=== PATIENT | male | born 1945 | race Caucasian/White ===

== ENCOUNTER → 2016-11-17 | Outpatient (REF) | payer MEDICARE, OTHER ==
[~2016-11-17] MED LIST: ANTI2CAP PO; AUGM875T27 PO; BENA20TA PO; BENA20TA2 PO; CHAN1PAK9 PO; CIPR500T89 PO; CLIN1CAP5 PO; FLAG500T PO; GLIP5TAB8 PO; GLYB5TA PO; HEPA10IN19 IV; IMOD2TAB14 PO; INSULANT SC; JANU100T PO; METF1000 PO; METF500T PO; ROCE1INJ4 IV; SALI0.9I2 IV; SIMV20TA2 PO; TYLE325T5 PO; VARE1TA PO; ZOCO20TA PO
[2016-11-17 13:39] LABS: MEAN CORPUSCULAR HEMOGLOBIN 30.6 pg (27.0-33.0); MEAN CORPUSCULAR HGB CONC 32.3 g/dl (32.0-36.5); MEAN CORPUSCULAR VOLUME 94.5 fl (80.0-96.0); RED CELL DISTRIBUTION WIDTH 12.5 % (11.5-14.5); WHITE BLOOD COUNT 7.5 K/mm3 (4.0-10.0)
[2016-11-17 13:43] LABS: ALBUMIN 3.4 GM/DL (3.2-5.2); ALBUMIN/GLOBULIN RATIO 1.03 (1.00-1.93); ALKALINE PHOSPHATASE 122 U/L (45-117); ALT/SGPT 32 U/L (12-78); ANION GAP 8 MEQ/L (8-16); AST/SGOT 14 U/L (15-37); BILIRUBIN,TOTAL 0.7 MG/DL (0.2-1.0); BLOOD UREA NITROGEN 13 MG/DL (7-18); CALCIUM LEVEL 8.9 MG/DL (8.8-10.2); CARBON DIOXIDE LEVEL 29 MEQ/L (21-32); CHLORIDE LEVEL 103 MEQ/L (98-107); CHOLESTEROL LEVEL 200 MG/DL (<200); CREATININE FOR GFR 0.89 MG/DL (0.70-1.30); GLOMERULAR FILTRATION RATE > 60.0 (>49); GLUCOSE, FASTING 311 MG/DL (80-110); POTASSIUM SERUM 4.2 MEQ/L (3.5-5.1); SODIUM LEVEL 140 MEQ/L (136-145); TOTAL PROTEIN 6.7 GM/DL (6.4-8.2); TRIGLYCERIDES LEVEL 160 MG/DL (<150)
== END ==
LOC: M SFHCPLAZ 10:25
PROVIDERS: ATTEND Internal Medicine
DX: Z85.038 Personal history of other malignant neoplasm of large intestine (principal); E11.9 Type 2 diabetes mellitus without complications; E78.00 Pure hypercholesterolemia, unspecified

== ENCOUNTER → 2016-11-29 | Outpatient (REF) | payer MEDICARE, OTHER ==
[~2016-11-29] MED LIST changes: -IMOD2TAB14 PO; +IMOD2TAB16 PO
== END ==
LOC: M LAB REF 16:19
PROVIDERS: ATTEND Internal Medicine Medical Oncology
DX: C18.9 Malignant neoplasm of colon, unspecified (principal)

== ENCOUNTER → 2017-01-29 | Outpatient (REF) | payer MEDICARE, OTHER ==
[2017-01-29 13:16] LABS: INR 1.03
== END ==
LOC: M LAB REF 12:33
PROVIDERS: ATTEND Internal Medicine Medical Oncology
DX: C20 Malignant neoplasm of rectum (principal)

== ENCOUNTER → 2017-03-27 | Outpatient (REF) | payer MEDICARE, OTHER ==
[2017-03-27 12:35] LABS: ALBUMIN 3.3 GM/DL (3.2-5.2); ALBUMIN/GLOBULIN RATIO 1.06 (1.00-1.93); ALKALINE PHOSPHATASE 130 U/L (45-117); ALT/SGPT 62 U/L (12-78); ANION GAP 5 MEQ/L (8-16); AST/SGOT 30 U/L (15-37); BILIRUBIN,TOTAL 0.6 MG/DL (0.2-1.0); BLOOD UREA NITROGEN 16 MG/DL (7-18); CALCIUM LEVEL 9.1 MG/DL (8.8-10.2); CARBON DIOXIDE LEVEL 29 MEQ/L (21-32); CHLORIDE LEVEL 106 MEQ/L (98-107); CREATININE FOR GFR 0.85 MG/DL (0.70-1.30); GLOMERULAR FILTRATION RATE > 60.0 (>49); GLUCOSE, FASTING 207 MG/DL (80-110); POTASSIUM SERUM 3.9 MEQ/L (3.5-5.1); SODIUM LEVEL 140 MEQ/L (136-145); TOTAL PROTEIN 6.4 GM/DL (6.4-8.2)
== END ==
LOC: M SFHCPLAZ 09:19
PROVIDERS: ATTEND Internal Medicine
DX: E11.9 Type 2 diabetes mellitus without complications (principal)

== ENCOUNTER → 2017-05-01 | Outpatient (REF) | payer MEDICARE, OTHER | LOC: M LAB REF 16:54 | PROVIDERS: ATTEND Internal Medicine Medical Oncology | DX: C18.9 Malignant neoplasm of colon, unspecified (principal) ==

== ENCOUNTER → 2017-06-19 | Outpatient (REF) | payer MEDICARE, OTHER ==
[~2017-06-19] MED LIST changes: -AUGM875T27 PO; +AUGM875T28 PO; -BENA20TA2 PO; +BENA20TA8 PO; +CIPR-249 PO; -CIPR500T89 PO; +CLIN150C14 PO; -CLIN1CAP5 PO; -METF1000 PO; +METF10004 PO; -METF500T PO; +METF500T13 PO
[2017-06-19 11:58] LABS: MEAN CORPUSCULAR HEMOGLOBIN 31.4 pg (27.0-33.0); MEAN CORPUSCULAR HGB CONC 33.6 g/dl (32.0-36.5); MEAN CORPUSCULAR VOLUME 93.4 fl (80.0-96.0); RED CELL DISTRIBUTION WIDTH 12.8 % (11.5-14.5); WHITE BLOOD COUNT 4.6 K/mm3 (4.0-10.0)
[2017-06-19 12:14] LABS: ALBUMIN 3.5 GM/DL (3.2-5.2); ALBUMIN/GLOBULIN RATIO 1.17 (1.00-1.93); ALKALINE PHOSPHATASE 162 U/L (45-117); ALT/SGPT 50 U/L (12-78); ANION GAP 7 MEQ/L (8-16); AST/SGOT 30 U/L (15-37); BILIRUBIN,TOTAL 0.7 MG/DL (0.2-1.0); BLOOD UREA NITROGEN 14 MG/DL (7-18); CARBON DIOXIDE LEVEL 28 MEQ/L (21-32); CHLORIDE LEVEL 108 MEQ/L (98-107); CHOLESTEROL LEVEL 156 MG/DL (<200); CREATININE FOR GFR 0.98 MG/DL (0.70-1.30); GLOMERULAR FILTRATION RATE > 60.0 (>49); GLUCOSE, FASTING 182 MG/DL (80-110); POTASSIUM SERUM 4.1 MEQ/L (3.5-5.1); SODIUM LEVEL 143 MEQ/L (136-145); TOTAL PROTEIN 6.5 GM/DL (6.4-8.2); TRIGLYCERIDES LEVEL 175 MG/DL (<150)
== END ==
LOC: M SFHCPLAZ 08:55
PROVIDERS: ATTEND Internal Medicine
DX: E78.00 Pure hypercholesterolemia, unspecified (principal); Z85.038 Personal history of other malignant neoplasm of large intestine; E11.9 Type 2 diabetes mellitus without complications

== ENCOUNTER → 2017-07-24 | Outpatient (REF) | payer MEDICARE, OTHER ==
[2017-07-24 16:23] LABS: ANION GAP 7 MEQ/L (8-16); BLOOD UREA NITROGEN 19 MG/DL (7-18); CALCIUM LEVEL 8.5 MG/DL (8.8-10.2); CARBON DIOXIDE LEVEL 28 MEQ/L (21-32); CHLORIDE LEVEL 108 MEQ/L (98-107); CREATININE FOR GFR 1.08 MG/DL (0.70-1.30); GLOMERULAR FILTRATION RATE > 60.0 (>49); GLUCOSE, FASTING 333 MG/DL (80-110); POTASSIUM SERUM 4.3 MEQ/L (3.5-5.1); SODIUM LEVEL 143 MEQ/L (136-145)
== END ==
LOC: M SFHCPLAZ 13:22
PROVIDERS: ATTEND Internal Medicine
DX: G45.9 Transient cerebral ischemic attack, unspecified (principal)

== ENCOUNTER → 2017-07-27 | Outpatient (CLI) | payer MEDICARE, OTHER ==
--- NOTE | 2017-07-27 15:19 | REP ---
MRI BRAIN WITHOUT AND WITH IV GADOLINIUM: HISTORY: Transition cerebral ischemia. Left cheek and tongue numbness intermittently. TECHNIQUE: Axial coronal and sagittal imaging planes are obtained. Sequences include spin-echo, fast spin echo, FLAIR, and diffusion weighted sequences. Gadolinium enhancement dose is 15 mL of intravenous ProHance. MRI FINDINGS: The bony calvarium is intact. Craniocervical junction and upper cervical cord are unremarkable. There is no MR evidence of paranasal sinus disease or intraorbital abnormality. Deep facial soft tissues are unremarkable and symmetric. No intracranial vascular abnormality is seen. There is a small focus of decreased T1-weighted and T2 signal in the periventricular white matter of the right frontal lobe consistent with a tiny old lacunar infarct. There is no evidence of acute ischemia on diffusion weighted scans. There are some scattered periventricular and subcortical white matter foci of T2 hyperintensity consistent with small vessel atherosclerotic changes. There is no evidence of intracranial hemorrhage. No mass, extra-axial fluid collection or midline shift is seen. Postcontrast enhanced images show enhancement of normal vessels. No abnormal gadolinium enhancement is appreciated. 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 Small vessel changes. Otherwise negative MRI study brain without and with intravenous gadolinium. Signed by Christopher Winslow MD 07/27/2017 03:22 P
== END ==
LOC: M RAD 13:03
PROVIDERS: ATTEND Internal Medicine
DX: G45.9 Transient cerebral ischemic attack, unspecified (principal)
CPT/HCPCS: 70553; A9576

== ENCOUNTER → 2017-07-31 | Outpatient (REF) | payer MEDICARE, OTHER | LOC: M LAB REF 17:31 | PROVIDERS: ATTEND Internal Medicine Medical Oncology | DX: C18.9 Malignant neoplasm of colon, unspecified (principal) ==

== ENCOUNTER → 2017-08-02 | Outpatient (CLI) | payer MEDICARE, OTHER ==
--- NOTE | 2017-08-02 11:15 | REP ---
MRA BRAIN WITHOUT CONTRAST: HISTORY: Transient cerebral ischemia. 3D [id number] MR angiography was performed at the level of the [place]. There is no aneurysm or arteriovenous malformation. Mild atherosclerotic disease involves the vertical petrous and cavernous internal carotid arteries. The major intracranial vessels are patent. The vertebral arteries are equal in size. IMPRESSION: 1. There is no aneurysm or arteriovenous malformation. 2. Atherosclerotic disease as described above. Signed by Fredo Landaverde MD 08/02/2017 11:23 A
== END ==
LOC: M RAD 08:53
PROVIDERS: ATTEND Internal Medicine
DX: G45.9 Transient cerebral ischemic attack, unspecified (principal)

== ENCOUNTER → 2017-10-08 | Outpatient (REF) | payer MEDICARE, OTHER | LOC: M LAB REF 13:58 | PROVIDERS: ATTEND Internal Medicine Medical Oncology | DX: C18.4 Malignant neoplasm of transverse colon (principal) ==

== ENCOUNTER → 2017-10-11 | Outpatient (CLI) | payer MEDICARE, OTHER ==
[~2017-10-11] MED LIST changes: +GASTROGRAFIN SOLUTION 30ML (Q9963) As Ordered ONE; +ISOVUE-370 76% 100ML VIAL (Q9967) As Ordered ONE
--- NOTE | 2017-10-11 11:14 | REP ---
CT of the chest with IV contrast: Comparison is 07/21/2014. There are small 3 ml lung nodules as previously, one on image 45 inferiorly in the anterior segment right upper lobe and the other on image 49 in the right lower lobe, compatible with stable granulomas. There are no new lung nodules or mass. There are no infiltrates or effusions. There is no mediastinal or hilar adenopathy. There is no axillary adenopathy. Thoracic aorta is R. Cardiac size is normal. There is no pericardial effusion. There are no lytic, blastic or destructive skeletal changes. Impression: Essentially negative CT study of the chest. There are two tiny stable granulomas in the right lung, unchanged. No evidence of metastatic disease or adenopathy. No infiltrates or effusions. Signed by Theo Goins MD 10/11/2017 11:06 A
--- NOTE | 2017-10-11 11:56 | REP ---
CT abdomen pelvis without and with IV contrast. The after IV contrast, immediate and delayed scanning is performed. Comparison is 07/21/2014. The hepatic parenchyma is homogeneous on all phases of the study. There is no evidence of hepatic metastatic disease. The gallbladder, pancreas and spleen are normal size, unremarkable and unchanged. The adrenals, kidneys and abdominal aorta are unremarkable and unchanged. Occasional calcified atheroma is again noted in the aorta. There is no periaortic adenopathy. There is no mesenteric adenopathy. There is no ascites. There is a circumferential anastomotic surgical suture line in the proximal transverse colon and a similar surgical suture line in the rectosigmoid colon. This is unchanged. There is no evidence of tumor recurrence at either anastomosis. There is no bowel distension or obstruction. Mesentery is unremarkable. Pelvis: There is no adenopathy or ascites. The bladder is unremarkable. There is mild stranding in the pararectal fat, nonspecific. This could be postsurgical, postradiation or combination. There is no ascites. Impression: No evidence of adenopathy, metastatic disease, or ascites. There are postsurgical changes as described, unchanged. Otherwise, negative CT of the abdomen and pelvis. No interval change. Signed by Theo Goins MD 10/11/2017 11:47 A
== END ==
LOC: M RAD 08:09
PROVIDERS: ATTEND Internal Medicine Medical Oncology
DX: C18.9 Malignant neoplasm of colon, unspecified (principal)
CPT/HCPCS: 71260; 74178; Q9963; Q9967

== ENCOUNTER → 2017-11-07 | Outpatient (REF) | payer MEDICARE, OTHER ==
[2017-11-07 12:17] LABS: ALBUMIN 3.4 GM/DL (3.2-5.2); ALBUMIN/GLOBULIN RATIO 1.06 (1.00-1.93); ALKALINE PHOSPHATASE 118 U/L (45-117); ALT/SGPT 39 U/L (12-78); ANION GAP 5 MEQ/L (8-16); AST/SGOT 23 U/L (7-37); BILIRUBIN,TOTAL 0.5 MG/DL (0.2-1.0); BLOOD UREA NITROGEN 18 MG/DL (7-18); CARBON DIOXIDE LEVEL 30 MEQ/L (21-32); CHLORIDE LEVEL 109 MEQ/L (98-107); CHOLESTEROL LEVEL 129 MG/DL (<200); CHOLESTEROL RISK RATIO 3.486 (<5); GLOMERULAR FILTRATION RATE > 60.0 (>49); GLUCOSE, FASTING 95 MG/DL (80-110); HDL CHOLESTEROL 37 MG/DL (>40); NON-HDL-C 92 MG/DL; POTASSIUM SERUM 4.2 MEQ/L (3.5-5.1); SODIUM LEVEL 144 MEQ/L (136-145); TOTAL PROTEIN 6.6 GM/DL (6.4-8.2); TRIGLYCERIDES LEVEL 155 MG/DL (<150)
[2017-11-07 12:35] LABS: CREATININE, URINE 64.2 MG/DL; MAU/CREAT RATIO 10.9 MCG/MG (0.0-30.0)
[2017-11-07 12:52] LABS: ESTIMATED AVERAGE GLUCOSE 235 MG/DL (60-110); HEMOGLOBIN A1c 9.8 %
== END ==
LOC: M SFHCPLAZ 07:48
DX: E11.3553 Type 2 diabetes mellitus with stable proliferative diabetic retinopathy, bilateral (principal); Z85.038 Personal history of other malignant neoplasm of large intestine; E78.00 Pure hypercholesterolemia, unspecified
CPT/HCPCS: 80053

== ENCOUNTER → 2017-12-28 | Outpatient (REF) | payer MEDICARE, OTHER ==
[2017-12-28 16:04] LABS: APPEARANCE, URINE HAZY (CLEAR); BACTERIA, URINE AUTO 1+ (NEGATIVE); BILIRUBIN, URINE AUTO NEGATIVE (NEGATIVE); BLOOD, URINE BLOOD 2+ (NEGATIVE); COLOR, URINE YELLOW (YELLOW); GLUCOSE, URINE (UA) AUTO 3+ mg/dL (NEGATIVE); KETONE, URINE AUTO NEGATIVE (NEGATIVE); LEUKOCYTE ESTERASE, URINE AUTO 3+ (NEGATIVE); NITRITE, URINE AUTO NEGATIVE (NEGATIVE); PROTEIN, URINE AUTO NEGATIVE (NEGATIVE); RBC, URINE AUTO 22 /HPF (0-3); SPECIFIC GRAVITY URINE AUTO 1.017 (1.002-1.035); SQUAMOUS EPITHELIAL CELL UR AU 0 /HPF (0-6); UROBILINOGEN, URINE AUTO 0.2 mg/dL (0.0-2.0); WBC, URINE AUTO 91 /HPF (0-3)
== END ==
LOC: M SFHCPLAZ 14:52
DX: R30.0 Dysuria (principal)
CPT/HCPCS: 81001

== ENCOUNTER → 2017-12-31 | Outpatient (REF) | payer MEDICARE, OTHER | LOC: M LAB REF 16:54 | DX: L89.891 Pressure ulcer of other site, stage 1 (principal); E10.621 Type 1 diabetes mellitus with foot ulcer (principal) | CPT/HCPCS: 87186; 87205 ==

== ENCOUNTER → 2018-01-29 | Outpatient (REF) | payer MEDICARE, OTHER | LOC: M LAB REF 13:51 | DX: C18.9 Malignant neoplasm of colon, unspecified (principal) | CPT/HCPCS: 82378 ==

== ENCOUNTER → 2018-02-18 | Outpatient (CLI) | payer MEDICARE, OTHER ==
[2018-02-18 11:15] LABS: HEMATOCRIT 38.1 % (42.0-52.0); HEMOGLOBIN 12.3 g/dl (13.5-17.5); MEAN CORPUSCULAR HEMOGLOBIN 29.3 pg (27.0-33.0); MEAN CORPUSCULAR HGB CONC 32.3 g/dl (32.0-36.5); MEAN CORPUSCULAR VOLUME 90.7 fl (80.0-96.0); PLATELET COUNT, AUTOMATED 184 10^3/uL (150-450); RED CELL DISTRIBUTION WIDTH 13.4 % (11.5-14.5); WHITE BLOOD COUNT 6.5 10^3/uL (4.0-10.0)
[2018-02-18 12:14] LABS: ANION GAP 3 MEQ/L (8-16); BLOOD UREA NITROGEN 18 MG/DL (7-18); CALCIUM LEVEL 9.1 MG/DL (8.8-10.2); CARBON DIOXIDE LEVEL 31 MEQ/L (21-32); CHLORIDE LEVEL 107 MEQ/L (98-107); CREATININE FOR GFR 1.05 MG/DL (0.70-1.30); GLOMERULAR FILTRATION RATE > 60.0 (>42); GLUCOSE, FASTING 308 MG/DL (70-100); POTASSIUM SERUM 4.8 MEQ/L (3.5-5.1); SODIUM LEVEL 141 MEQ/L (136-145)
== END ==
LOC: M LAB 10:45
DX: Z01.818 Encounter for other preprocedural examination (principal); L89.899 Pressure ulcer of other site, unspecified stage; R94.31 Abnormal electrocardiogram [ECG] [EKG]
CPT/HCPCS: 71046

== ENCOUNTER → 2018-02-26 | Outpatient (REF) | payer MEDICARE, OTHER ==
[2018-02-26 14:32] LABS: ESTIMATED AVERAGE GLUCOSE 249 MG/DL (60-110); HEMOGLOBIN A1c 10.3 %
== END ==
LOC: M SFHCPLAZ 08:46
DX: E11.3553 Type 2 diabetes mellitus with stable proliferative diabetic retinopathy, bilateral (principal)
CPT/HCPCS: 83036

== ENCOUNTER 2018-03-06 05:55 | Day surgery (SDC) | payer MEDICARE, OTHER ==
[2018-03-06] MEDS ORDERED: LR 1,000 ML IV (06:15)
[2018-03-06] MEDS: VANCOMYCIN HCL 1,000 MG, VIAL MATE ADAPTER 1 EACH in D5W 250 ML IV (06:51)
[2018-03-06 07:01] LABS: BEDSIDE GLUCOSE 318 MG/DL (83-110)
[2018-03-06] MEDS ORDERED: HumaLOG INSULIN (NovoLOG) PER UNIT As Ordered (07:14)
[2018-03-06] MEDS ORDERED: fentaNYL 100 MCG/2 ML INJECTION (J3010) As Ordered (07:15)
[2018-03-06] MEDS ORDERED: PROPOFOL 200 MG/20 ML VIAL As Ordered ×2 (07:15→07:34)
[2018-03-06] MEDS ORDERED: LIDOCAINE 2% INJ 100 MG/5 ML SDV (FOR ANES.) As Ordered (07:15)
[2018-03-06] MEDS ORDERED: MIDAZOLAM INJ 2 MG/2 ML VIAL (J2250) As Ordered (07:15)
[2018-03-06] MEDS: HumaLOG INSULIN (NovoLOG) PER UNIT SC (07:18)
[2018-03-06] MEDS: BUPIVACAINE HCL 0.5% 10 ML VIAL As Ordered (07:43)
[2018-03-06] MEDS: LIDOCAINE 1% MDV 20ML VIAL As Ordered (07:43)
[2018-03-06] MEDS ORDERED: ONDANSETRON 4MG/2ML VIAL (J2405) As Ordered (07:56)
== END 2018-03-06 09:02 | disposition home or self-care (01) ==
LOC: M SDC 05:55
DX: M20.5X1 Other deformities of toe(s) (acquired), right foot (principal); L89.899 Pressure ulcer of other site, unspecified stage; E11.621 Type 2 diabetes mellitus with foot ulcer; E11.40 Type 2 diabetes mellitus with diabetic neuropathy, unspecified; E78.00 Pure hypercholesterolemia, unspecified; Z79.899 Other long term (current) drug therapy; Z79.4 Long term (current) use of insulin; Z79.82 Long term (current) use of aspirin; F17.210 Nicotine dependence, cigarettes, uncomplicated; Z86.14 Personal history of Methicillin resistant Staphylococcus aureus infection; Z88.1 Allergy status to other antibiotic agents
CPT/HCPCS: 28110

== ENCOUNTER → 2018-05-27 | Outpatient (REF) | payer MEDICARE, OTHER ==
[2018-05-27 19:32] LABS: FERRITIN 39 NG/ML (26-388); IRON (FE) 33 UG/DL (65-175); PERCENT SATURATION 12.4 % (19.7-50.0); TOTAL IRON BINDING CAPACITY 266 UG/DL (250-450)
[2018-05-28 11:50] LABS: CARCINOEMBRYONIC ANTIGEN 0.9 NG/ML (<2.5)
== END ==
LOC: M LAB REF 17:29
DX: Z85.048 Personal history of other malignant neoplasm of rectum, rectosigmoid junction, and anus (principal); D64.9 Anemia, unspecified
CPT/HCPCS: 82378

== ENCOUNTER → 2018-05-31 | Outpatient (REF) | payer MEDICARE, OTHER | LOC: M LAB REF 13:15 | DX: E11.621 Type 2 diabetes mellitus with foot ulcer (principal) | CPT/HCPCS: 88304 ==

== ENCOUNTER → 2018-06-11 | Outpatient (REF) | payer MEDICARE, OTHER ==
[2018-06-11 11:52] LABS: HEMATOCRIT 39.8 % (42.0-52.0); HEMOGLOBIN 12.7 g/dl (13.5-17.5); MEAN CORPUSCULAR HGB CONC 31.9 g/dl (32.0-36.5); MEAN CORPUSCULAR VOLUME 93.9 fl (80.0-96.0); PLATELET COUNT, AUTOMATED 329 10^3/uL (150-450); RED BLOOD COUNT 4.24 10^6/uL (4.30-6.10); RED CELL DISTRIBUTION WIDTH 13.2 % (11.5-14.5); WHITE BLOOD COUNT 9.8 10^3/uL (4.0-10.0)
[2018-06-11 12:15] LABS: ANION GAP 9 MEQ/L (8-16); BLOOD UREA NITROGEN 21 MG/DL (7-18); CALCIUM LEVEL 8.8 MG/DL (8.8-10.2); CARBON DIOXIDE LEVEL 25 MEQ/L (21-32); CHLORIDE LEVEL 107 MEQ/L (98-107); CREATININE FOR GFR 1.21 MG/DL (0.70-1.30); GLOMERULAR FILTRATION RATE > 60.0 (>42); GLUCOSE, FASTING 168 MG/DL (70-100); POTASSIUM SERUM 4.3 MEQ/L (3.5-5.1); SODIUM LEVEL 141 MEQ/L (136-145)
== END ==
LOC: M LABDRAWP 10:58
DX: S92.342A Displaced fracture of fourth metatarsal bone, left foot, initial encounter for closed fracture (principal); L89.899 Pressure ulcer of other site, unspecified stage; X58.XXXA Exposure to other specified factors, initial encounter; Y92.9 Unspecified place or not applicable; Y93.9 Activity, unspecified; Y99.9 Unspecified external cause status
CPT/HCPCS: 80048

== ENCOUNTER 2018-06-12 06:00 | Day surgery (SDC) | payer MEDICARE, OTHER ==
[~2018-06-12 06:00] MED LIST changes: -ANTI2CAP PO; -AUGM875T28 PO; -BENA20TA PO; -BENA20TA8 PO; -CHAN1PAK9 PO; -CIPR-249 PO; -CLIN150C14 PO; -FLAG500T PO; -GASTROGRAFIN SOLUTION 30ML (Q9963) As Ordered ONE; -GLIP5TAB8 PO; -GLYB5TA PO; -HEPA10IN19 IV; -IMOD2TAB16 PO; -INSULANT SC; -ISOVUE-370 76% 100ML VIAL (Q9967) As Ordered ONE; -JANU100T PO; +LR 1,000 ML IV; -METF10004 PO; -METF500T13 PO; -ROCE1INJ4 IV; -SALI0.9I2 IV; -SIMV20TA2 PO; -TYLE325T5 PO; -VARE1TA PO; -ZOCO20TA PO
[2018-06-12 07:02] LABS: BEDSIDE GLUCOSE 138 MG/DL (83-110)
[2018-06-12] MEDS ORDERED: fentaNYL 100 MCG/2 ML INJECTION (J3010) As Ordered (07:17)
[2018-06-12] MEDS ORDERED: PROPOFOL 200 MG/20 ML VIAL As Ordered ×2 (07:18)
[2018-06-12] MEDS ORDERED: MIDAZOLAM INJ 2 MG/2 ML VIAL (J2250) As Ordered (07:18)
[2018-06-12] MEDS ORDERED: VANCOMYCIN 1000 MG/20 ML VIAL (J3370) As Ordered (07:26)
[2018-06-12] MEDS ORDERED: VANCOMYCIN HCL 1,000 MG, VIAL MATE ADAPTER 1 EACH in D5W 250 ML IV (07:30)
[2018-06-12] MEDS: LIDOCAINE 1% MDV 20ML VIAL As Ordered (07:35)
[2018-06-12] MEDS: BUPIVACAINE HCL 0.5% 10 ML VIAL As Ordered (07:35)
[2018-06-12] MEDS: VANCOMYCIN HCL 500 MG/10 ML VIAL (J3370) As Ordered (07:50)
[2018-06-12] MEDS: dexameTHASONE 4 MG/ML 1ML VIAL (J1100) As Ordered (07:50)
== END 2018-06-12 09:20 | disposition home or self-care (01) ==
LOC: M SDC 09:20
DX: M86.8X8 Other osteomyelitis, other site (principal); M21.6X2 Other acquired deformities of left foot; E11.621 Type 2 diabetes mellitus with foot ulcer; E11.3553 Type 2 diabetes mellitus with stable proliferative diabetic retinopathy, bilateral; E11.40 Type 2 diabetes mellitus with diabetic neuropathy, unspecified; E78.00 Pure hypercholesterolemia, unspecified; L89.890 Pressure ulcer of other site, unstageable; L03.115 Cellulitis of right lower limb; I73.9 Peripheral vascular disease, unspecified; I10 Essential (primary) hypertension; F17.200 Nicotine dependence, unspecified, uncomplicated; R06.83 Snoring; Z88.1 Allergy status to other antibiotic agents; Z79.899 Other long term (current) drug therapy; Z79.4 Long term (current) use of insulin; Z79.82 Long term (current) use of aspirin; Z85.038 Personal history of other malignant neoplasm of large intestine; Z92.3 Personal history of irradiation; Z92.21 Personal history of antineoplastic chemotherapy
CPT/HCPCS: 28111

== ENCOUNTER → 2018-06-21 | Outpatient (REF) | payer MEDICARE, OTHER ==
[2018-06-21 11:27] LABS: ESTIMATED AVERAGE GLUCOSE 200 MG/DL (60-110); HEMOGLOBIN A1c 8.6 %
[2018-06-21 11:29] LABS: ALBUMIN 3.1 GM/DL (3.2-5.2); ALBUMIN/GLOBULIN RATIO 0.76 (1.00-1.93); ALKALINE PHOSPHATASE 151 U/L (45-117); ALT/SGPT 53 U/L (12-78); ANION GAP 6 MEQ/L (8-16); AST/SGOT 28 U/L (7-37); BILIRUBIN,TOTAL 0.2 MG/DL (0.2-1.0); BLOOD UREA NITROGEN 30 MG/DL (7-18); CALCIUM LEVEL 9.1 MG/DL (8.8-10.2); CARBON DIOXIDE LEVEL 28 MEQ/L (21-32); CHLORIDE LEVEL 109 MEQ/L (98-107); CREATININE FOR GFR 1.33 MG/DL (0.70-1.30); GLOMERULAR FILTRATION RATE 56.6 (>42); GLUCOSE, FASTING 135 MG/DL (70-100); SODIUM LEVEL 143 MEQ/L (136-145); TOTAL PROTEIN 7.2 GM/DL (6.4-8.2)
[2018-06-21 11:36] LABS: POTASSIUM SERUM 5.6 MEQ/L (3.5-5.1)
== END ==
LOC: M SFHCPLAZ 08:04
DX: E11.3553 Type 2 diabetes mellitus with stable proliferative diabetic retinopathy, bilateral (principal)
CPT/HCPCS: 80053

== ENCOUNTER → 2018-07-17 | Outpatient (CLI) | payer MEDICARE, OTHER ==
[~2018-07-17] MED LIST changes: +ISOVUE-300 61% 50ML VIAL (Q9967) As Ordered; +LIDOCAINE 2% MDV 20 ML VIAL As Ordered; -LR 1,000 ML IV
== END | disposition home or self-care (01) ==
LOC: M IRPRO 07:44
DX: I70.245 Atherosclerosis of native arteries of left leg with ulceration of other part of foot (principal); L97.529 Non-pressure chronic ulcer of other part of left foot with unspecified severity; I70.201 Unspecified atherosclerosis of native arteries of extremities, right leg
CPT/HCPCS: 36200

== ENCOUNTER 2018-07-29 17:24 | Emergency (ER) | payer MEDICARE, OTHER ==
[2018-07-29] MEDS: NS 1,000 ML IV (18:26)
[2018-07-29 18:34] LABS: HEMATOCRIT 36.8 % (42.0-52.0); HEMOGLOBIN 11.7 g/dl (13.5-17.5); MEAN CORPUSCULAR HEMOGLOBIN 29.1 pg (27.0-33.0); MEAN CORPUSCULAR HGB CONC 31.8 g/dl (32.0-36.5); MEAN CORPUSCULAR VOLUME 91.5 fl (80.0-96.0); PLATELET COUNT, AUTOMATED 329 10^3/uL (150-450); RED BLOOD COUNT 4.02 10^6/uL (4.30-6.10); RED CELL DISTRIBUTION WIDTH 13.5 % (11.5-14.5); WHITE BLOOD COUNT 12.4 10^3/uL (4.0-10.0)
[2018-07-29 18:46] LABS: INR 1.12; PROTHROMBIN TIME 14.6 SECONDS (12.1-14.4)
[2018-07-29 19:10] LABS: ANION GAP 10 MEQ/L (8-16); BLOOD UREA NITROGEN 15 MG/DL (7-18); CALCIUM LEVEL 8.5 MG/DL (8.8-10.2); CARBON DIOXIDE LEVEL 24 MEQ/L (21-32); CHLORIDE LEVEL 105 MEQ/L (98-107); CREATININE FOR GFR 1.18 MG/DL (0.70-1.30); GLOMERULAR FILTRATION RATE > 60.0 (>42); GLUCOSE, FASTING 162 MG/DL (70-100); POTASSIUM SERUM 4.6 MEQ/L (3.5-5.1); SODIUM LEVEL 139 MEQ/L (136-145)
[2018-07-29] MEDS: CEFEPIME HCL 1 GM in D5W MINI-BAG PLUS 50 ML IV (22:07)
[2018-07-29] MEDS: VANCOMYCIN HCL 750 MG, VIAL MATE ADAPTER 1 EACH in D5W 250 ML IV (22:42)
== END 2018-07-30 01:12 | disposition other institution (70) ==
LOC: M ED 07-30 01:12
DX: L03.116 Cellulitis of left lower limb (principal); E11.9 Type 2 diabetes mellitus without complications; I10 Essential (primary) hypertension; F17.200 Nicotine dependence, unspecified, uncomplicated
CPT/HCPCS: J0692

== ENCOUNTER → 2018-10-11 | Outpatient (REF) | payer MEDICARE, OTHER ==
[2018-10-11 12:14] LABS: HEMATOCRIT 46.4 % (42.0-52.0); HEMOGLOBIN 14.4 g/dl (13.5-17.5); MEAN CORPUSCULAR HEMOGLOBIN 29.2 pg (27.0-33.0); MEAN CORPUSCULAR VOLUME 94.1 fl (80.0-96.0); PLATELET COUNT, AUTOMATED 222 10^3/uL (150-450); RED BLOOD COUNT 4.93 10^6/uL (4.30-6.10); RED CELL DISTRIBUTION WIDTH 14.7 % (11.5-14.5); WHITE BLOOD COUNT 9.6 10^3/uL (4.0-10.0)
[2018-10-11 12:36] LABS: ANION GAP 7 MEQ/L (8-16); BLOOD UREA NITROGEN 13 MG/DL (7-18); CALCIUM LEVEL 9.1 MG/DL (8.8-10.2); CARBON DIOXIDE LEVEL 28 MEQ/L (21-32); CHLORIDE LEVEL 111 MEQ/L (98-107); CREATININE FOR GFR 0.88 MG/DL (0.70-1.30); GLOMERULAR FILTRATION RATE > 60.0 (>42); GLUCOSE, FASTING 94 MG/DL (70-100); POTASSIUM SERUM 4.8 MEQ/L (3.5-5.1); SODIUM LEVEL 146 MEQ/L (136-145)
== END ==
LOC: M SFHCPLAZ 08:32
DX: Z01.818 Encounter for other preprocedural examination (principal); L89.892 Pressure ulcer of other site, stage 2; E11.3553 Type 2 diabetes mellitus with stable proliferative diabetic retinopathy, bilateral; I10 Essential (primary) hypertension; Z85.038 Personal history of other malignant neoplasm of large intestine
CPT/HCPCS: 80048

== ENCOUNTER 2018-10-16 06:15 | Day surgery (SDC) | payer MEDICARE, OTHER ==
[2018-10-16] MEDS: LR 1,000 ML IV (06:49)
[2018-10-16] MEDS ORDERED: VANCOMYCIN HCL 1,000 MG, VIAL MATE ADAPTER 1 EACH in D5W 250 ML IV (07:00)
[2018-10-16] MEDS: LIDOCAINE 1% SDV INJ 30 ML VIAL As Ordered (07:05)
[2018-10-16] MEDS: BUPIVACAINE HCL 0.5% 30 ML VIAL As Ordered (07:05)
[2018-10-16 07:07] LABS: BEDSIDE GLUCOSE 152 MG/DL (83-110)
[2018-10-16] MEDS ORDERED: LIDOCAINE 2% INJ 100 MG/5 ML SDV (FOR ANES.) As Ordered (07:45)
[2018-10-16] MEDS ORDERED: MIDAZOLAM INJ 2 MG/2 ML VIAL (J2250) As Ordered (07:45)
[2018-10-16] MEDS ORDERED: fentaNYL 100 MCG/2 ML INJECTION (J3010) As Ordered (07:45)
[2018-10-16] MEDS ORDERED: PROPOFOL 200 MG/20 ML VIAL As Ordered (07:45)
[2018-10-16] MEDS ORDERED: ONDANSETRON 4MG/2ML VIAL (J2405) As Ordered (07:45)
[2018-10-16] MEDS: LIDOCAINE 1% MDV 20ML VIAL As Ordered (07:48)
[2018-10-16] MEDS: BUPIVACAINE HCL 0.5% 10 ML VIAL As Ordered (07:48)
[2018-10-16] MEDS ORDERED: KETAMINE HCL 200 MG/20 ML VIAL As Ordered (08:38)
== END 2018-10-16 09:20 | disposition home or self-care (01) ==
LOC: M SDC 06:15
DX: L89.899 Pressure ulcer of other site, unspecified stage (principal); E11.21 Type 2 diabetes mellitus with diabetic nephropathy; E11.40 Type 2 diabetes mellitus with diabetic neuropathy, unspecified; E11.622 Type 2 diabetes mellitus with other skin ulcer; E78.5 Hyperlipidemia, unspecified; F17.210 Nicotine dependence, cigarettes, uncomplicated; Z92.21 Personal history of antineoplastic chemotherapy; Z92.3 Personal history of irradiation; Z79.84 Long term (current) use of oral hypoglycemic drugs; Z85.038 Personal history of other malignant neoplasm of large intestine
CPT/HCPCS: 28820

== ENCOUNTER → 2018-11-18 | Outpatient (REF) | payer MEDICARE, OTHER ==
[~2018-11-18] MED LIST changes: +ANTI2CAP PO; +ASPI1TAB PO; +AUGM875T28 PO; +BENA10TA PO; +BENA20TA PO; +BENA20TA8 PO; +CHAN1PAK13 PO; +CIPR-249 PO; +CLIN150C14 PO; +FERR325T3 PO; +FLAG500T PO; +GLIP10TA6 PO; +GLIP5TAB8 PO; +GLYB5TA PO; +HEPA10IN19 IV; +HYDR-3713 PO; +IMOD2TAB16 PO; +INSULANT SC; -ISOVUE-300 61% 50ML VIAL (Q9967) As Ordered; +JANU100T PO; +JARD1TAB3 PO; -LIDOCAINE 2% MDV 20 ML VIAL As Ordered; +METF10004 PO; +METF500T13 PO; +PROBCAP4 PO; +ROCE1INJ6 IV; +SALI0.9I2 IV; +SIMV20TA2 PO; +TYLE325T5 PO; +VARE1TA PO; +ZOCO20TA PO
[2018-11-18 10:06] LABS: HEMATOCRIT 46.9 % (42.0-52.0); HEMOGLOBIN 14.8 g/dl (13.5-17.5); MEAN CORPUSCULAR HEMOGLOBIN 29.4 pg (27.0-33.0); MEAN CORPUSCULAR HGB CONC 31.6 g/dl (32.0-36.5); MEAN CORPUSCULAR VOLUME 93.2 fl (80.0-96.0); PLATELET COUNT, AUTOMATED 178 10^3/uL (150-450); RED BLOOD COUNT 5.03 10^6/uL (4.30-6.10); WHITE BLOOD COUNT 5.9 10^3/uL (4.0-10.0)
[2018-11-18 10:36] LABS: ALBUMIN 3.6 GM/DL (3.2-5.2); ALT/SGPT 44 U/L (12-78); BILIRUBIN,TOTAL 0.4 MG/DL (0.2-1.0); BLOOD UREA NITROGEN 21 MG/DL (7-18); CALCIUM LEVEL 9.2 MG/DL (8.8-10.2); CARBON DIOXIDE LEVEL 27 MEQ/L (21-32); CHLORIDE LEVEL 109 MEQ/L (98-107); CHOLESTEROL LEVEL 161 MG/DL (<200); CHOLESTEROL RISK RATIO 3.926 (<5); CREATININE FOR GFR 0.99 MG/DL (0.70-1.30); GLOMERULAR FILTRATION RATE > 60.0 (>42); GLUCOSE, FASTING 98 MG/DL (70-100); HDL CHOLESTEROL 41 MG/DL (>40); LDL CHOLESTEROL 65 MG/DL (<100); NON-HDL-C 120 MG/DL; POTASSIUM SERUM 4.7 MEQ/L (3.5-5.1); SODIUM LEVEL 145 MEQ/L (136-145); TOTAL PROTEIN 6.9 GM/DL (6.4-8.2); TRIGLYCERIDES LEVEL 276 MG/DL (<150)
[2018-11-18 10:44] LABS: HEMOGLOBIN A1c 8.8 %
[2018-11-18 10:59] LABS: CREATININE, URINE 96.6 MG/DL; MALB URINE SIEMENS 10.3 MG/L; MAU/CREAT RATIO 10.6 MCG/MG (0.0-30.0)
== END ==
LOC: M SFHCPLAZ 08:19
PROVIDERS: ATTEND Internal Medicine
DX: Z85.038 Personal history of other malignant neoplasm of large intestine (principal); E11.3553 Type 2 diabetes mellitus with stable proliferative diabetic retinopathy, bilateral; E78.00 Pure hypercholesterolemia, unspecified

== ENCOUNTER → 2019-03-10 | Outpatient (REF) | payer MEDICARE, OTHER ==
[~2019-03-10] MED LIST changes: -ASPI1TAB PO; +ASPI81TA26 PO; +GLYB-147 PO; -GLYB5TA PO
[2019-03-10 10:19] LABS: HEMATOCRIT 44.2 % (42.0-52.0); HEMOGLOBIN 13.7 g/dl (13.5-17.5); MEAN CORPUSCULAR HEMOGLOBIN 29.8 pg (27.0-33.0); MEAN CORPUSCULAR VOLUME 96.1 fl (80.0-96.0); PLATELET COUNT, AUTOMATED 191 10^3/uL (150-450); WHITE BLOOD COUNT 6.8 10^3/uL (4.0-10.0)
[2019-03-10 10:44] LABS: HEMOGLOBIN A1c 8.9 %
[2019-03-10 10:48] LABS: ALBUMIN 3.3 GM/DL (3.2-5.2); ALT/SGPT 31 U/L (12-78); BILIRUBIN,TOTAL 0.5 MG/DL (0.2-1.0); BLOOD UREA NITROGEN 13 MG/DL (7-18); CALCIUM LEVEL 8.7 MG/DL (8.8-10.2); CARBON DIOXIDE LEVEL 27 MEQ/L (21-32); CHLORIDE LEVEL 113 MEQ/L (98-107); CHOLESTEROL LEVEL 144 MG/DL (<200); CHOLESTEROL RISK RATIO 3.789 (<5); CREATININE FOR GFR 0.88 MG/DL (0.70-1.30); GLOMERULAR FILTRATION RATE > 60.0 (>42); GLUCOSE, FASTING 68 MG/DL (70-100); HDL CHOLESTEROL 38 MG/DL (>40); LDL CHOLESTEROL 79 MG/DL (<100); NON-HDL-C 106 MG/DL; POTASSIUM SERUM 4.1 MEQ/L (3.5-5.1); SODIUM LEVEL 143 MEQ/L (136-145); TOTAL PROTEIN 6.5 GM/DL (6.4-8.2); TRIGLYCERIDES LEVEL 137 MG/DL (<150)
== END ==
LOC: M SFHCPLAZ 08:20
PROVIDERS: ATTEND Internal Medicine
DX: Z01.818 Encounter for other preprocedural examination (principal); Z85.038 Personal history of other malignant neoplasm of large intestine; E11.3553 Type 2 diabetes mellitus with stable proliferative diabetic retinopathy, bilateral; E78.00 Pure hypercholesterolemia, unspecified

== ENCOUNTER → 2019-03-21 | Outpatient (REF) | payer MEDICARE, OTHER | LOC: M LAB REF 13:44 | PROVIDERS: ATTEND Physician Assistant | DX: E11.621 Type 2 diabetes mellitus with foot ulcer (principal); M86.172 Other acute osteomyelitis, left ankle and foot ==

== ENCOUNTER → 2019-04-18 | Outpatient (CLI) | payer MEDICARE, OTHER ==
[~2019-04-18] MED LIST changes: +DOXY100C PO; +FREECAP PO
[2019-04-18 13:26] LABS: BASO % 0.5 % (0.0-1.0); EOS % 0.4 % (0.0-3.0); HEMATOCRIT 45.4 % (42.0-52.0); HEMOGLOBIN 14.5 g/dl (13.5-17.5); LYMPH % 11.5 % (24.0-44.0); MEAN CORPUSCULAR HEMOGLOBIN 30.3 pg (27.0-33.0); MEAN CORPUSCULAR HGB CONC 31.9 g/dl (32.0-36.5); MONO # 0.8 10^3/uL (0.0-0.8); MONO % 9.1 % (0.0-5.0); NEUTROPHILS # 6.5 10^3/uL (1.8-7.7); NEUTROPHILS % 77.9 % (36.0-66.0); PLATELET COUNT, AUTOMATED 162 10^3/uL (150-450); RED BLOOD COUNT 4.78 10^6/uL (4.30-6.10); WHITE BLOOD COUNT 8.4 10^3/uL (4.0-10.0)
--- NOTE | 2019-04-18 13:27 | REP ---
Right lower extremity Duplex Doppler venous ultrasound: Real time compression and duplex Doppler interrogation of the right lower extremity deep venous system is performed. The right common femoral, superficial femoral and popliteal veins are fully compressible with transducer pressure and demonstrate normal spontaneous and phasic flow, without evidence of deep venous thrombosis. Impression: No evidence of deep venous thrombosis of the right lower extremity femoral popliteal venous system. Electronically Signed by Theo Burton MD 04/18/2019 01:17 P
[2019-04-18 13:54] LABS: ALBUMIN 3.3 GM/DL (3.2-5.2); ALT/SGPT 31 U/L (12-78); BILIRUBIN,TOTAL 0.7 MG/DL (0.2-1.0); BLOOD UREA NITROGEN 21 MG/DL (7-18); CALCIUM LEVEL 9.3 MG/DL (8.8-10.2); CARBON DIOXIDE LEVEL 28 MEQ/L (21-32); CHLORIDE LEVEL 106 MEQ/L (98-107); GLOMERULAR FILTRATION RATE > 60.0 (>42); GLUCOSE, FASTING 192 MG/DL (70-100); POTASSIUM SERUM 4.1 MEQ/L (3.5-5.1); SODIUM LEVEL 140 MEQ/L (136-145); TOTAL PROTEIN 7.5 GM/DL (6.4-8.2)
[2019-04-18 14:07] LABS: ERYTHROCYTE SEDIMENTATION RATE 56 mm/hr (0-20)
== END ==
LOC: M LAB 12:12
PROVIDERS: ATTEND Internal Medicine Infectious Disease
DX: R60.0 Localized edema (principal); L97.512 Non-pressure chronic ulcer of other part of right foot with fat layer exposed; L97.524 Non-pressure chronic ulcer of other part of left foot with necrosis of bone
CPT/HCPCS: 11042; 36415; 80053; 85025; 85652; 86140; 87040; 87070; 87077; 87186; 93971; G0463

== ENCOUNTER → 2019-05-16 | Outpatient (REF) | payer MEDICARE, OTHER ==
[2019-05-16 09:59] LABS: BASO % 0.6 % (0.0-1.0); EOS # 0.3 10^3/uL (0.0-0.50); EOS % 4.6 % (0.0-3.0); HEMATOCRIT 43.6 % (42.0-52.0); HEMOGLOBIN 13.8 g/dl (13.5-17.5); LYMPH # 1.3 10^3/uL (1.5-4.5); LYMPH % 19.5 % (24.0-44.0); MEAN CORPUSCULAR HEMOGLOBIN 29.2 pg (27.0-33.0); MEAN CORPUSCULAR HGB CONC 31.7 g/dl (32.0-36.5); MEAN CORPUSCULAR VOLUME 92.2 fl (80.0-96.0); MONO # 0.7 10^3/uL (0.0-0.8); MONO % 10.8 % (0.0-5.0); NEUTROPHILS # 4.2 10^3/uL (1.8-7.7); NEUTROPHILS % 63.6 % (36.0-66.0); PLATELET COUNT, AUTOMATED 182 10^3/uL (150-450); RED BLOOD COUNT 4.73 10^6/uL (4.30-6.10); WHITE BLOOD COUNT 6.6 10^3/uL (4.0-10.0)
[2019-05-16 10:09] LABS: BLOOD UREA NITROGEN 23 MG/DL (7-18); CALCIUM LEVEL 8.5 MG/DL (8.8-10.2); CARBON DIOXIDE LEVEL 25 MEQ/L (21-32); CHLORIDE LEVEL 107 MEQ/L (98-107); CREATININE FOR GFR 1.21 MG/DL (0.70-1.30); GLOMERULAR FILTRATION RATE > 60.0 (>42); GLUCOSE, FASTING 196 MG/DL (70-100); POTASSIUM SERUM 4.2 MEQ/L (3.5-5.1); SODIUM LEVEL 140 MEQ/L (136-145)
[2019-05-16 10:23] LABS: ERYTHROCYTE SEDIMENTATION RATE 17 mm/hr (0-20)
== END ==
LOC: M SFHCPLAZ 07:47
PROVIDERS: ATTEND Internal Medicine Infectious Disease
DX: M86.172 Other acute osteomyelitis, left ankle and foot (principal)

== ENCOUNTER → 2019-06-16 | Outpatient (REF) | payer MEDICARE, OTHER ==
[2019-06-16 12:13] LABS: ALBUMIN 3.4 GM/DL (3.2-5.2); ALT/SGPT 31 U/L (12-78); BILIRUBIN,TOTAL 0.4 MG/DL (0.2-1.0); BLOOD UREA NITROGEN 20 MG/DL (7-18); CARBON DIOXIDE LEVEL 27 MEQ/L (21-32); CHLORIDE LEVEL 109 MEQ/L (98-107); CREATININE FOR GFR 0.94 MG/DL (0.70-1.30); GLOMERULAR FILTRATION RATE > 60.0 (>42); GLUCOSE, FASTING 136 MG/DL (70-100); MAGNESIUM LEVEL 2.4 MG/DL (1.8-2.4); POTASSIUM SERUM 4.2 MEQ/L (3.5-5.1); SODIUM LEVEL 142 MEQ/L (136-145); TOTAL PROTEIN 6.9 GM/DL (6.4-8.2)
[2019-06-16 12:40] LABS: HEMOGLOBIN A1c 8.9 %
== END ==
LOC: M SFHCPLAZ 08:49
PROVIDERS: ATTEND Internal Medicine
DX: I10 Essential (primary) hypertension (principal); E11.3553 Type 2 diabetes mellitus with stable proliferative diabetic retinopathy, bilateral

== ENCOUNTER → 2019-07-01 | Outpatient (POV) | payer MEDICARE, OTHER ==
[~2019-07-01] VITALS: Ht 177.8 cm; Wt 77.3 kg
[~2019-07-01] MED LIST changes: +BENEPOW18 PO; +GLIP2.5T6 PO; -SIMV20TA2 PO; +SIMV20TA22 PO
[2019-07-01 11:40] VITALS: BP 124/60
--- NOTE | 2019-07-01 18:34 | REP ---
BILATERAL LOWER EXTREMITY DUPLEX DOPPLER ARTERIAL ULTRASOUND: Real-time ultrasound evaluation and duplex Doppler interrogation of bilateral lower extremity arterial systems is performed. LALA right 1.1 and left 1.2. Monophasic wave forms are seen diffusely bilaterally with biphasic waveforms seen in the left common femoral artery and right profunda artery. There is moderate to severe plaquing and narrowing seen diffusely bilaterally. There is mild stenosis and the right profunda. Flow reversal is noted at the right anterior tibial artery with probable severe stenosis or occlusion proximal to that of the anterior tibial artery. There is severe diffuse plaquing of the [place] left superficial femoral artery. There is a patent left sided bypass graft connecting the left common femoral artery to the tibioperoneal trunk. There appears to be stenosis at the junction at both the proximal and distal anastomoses. [place] left SFA is occluded distally with very slow flow throughout the mid to distal left anterior tibial artery. There is elevated peak systolic velocity of the left bypass graft, common femoral artery anastomosis at 341 cm per second, velocity proximally 189 cm/s, distally 62.4 cm/s and at the tibioperoneal anastomosis 141 cm/s. In the right foot the plantar arch demonstrates patent flow, peak velocity pre-bifurcation 63.8 cm/s, medial 88.8 cm/s and lateral 63.9 cm/s. Left foot arteries could not be seen due to overlying bandaging. RIGHT LEFT Common femoral artery 166 cm/s 220 cm/s Profunda 211 cm/s 110 cm/s Proximal SFA 132 cm/s 62.6 cm/s Mid-SFA 94.9 cm/s 51.6 cm/s Distal SFA 98.8 cm/s occluded Popliteal 40.8 cm/s 18.4 cm/s Proximal [place] 29.9 cm/s 13.7 cm/s Tibioperoneal trunk 51.8 cm/s 29.8 cm/s Proximal CHECKER DUMP GROUNDS 118 cm/s 50.7 cm/s Distal CHECKER DUMP GROUNDS 64 cm/s 57.6 cm/s Distal [place] reversed 21.1 cm/s 14.7 cm/s Peroneal 52.2 cm/s 54.6 cm/s Electronically Signed by Thoe Burton MD 07/02/2019 12:19 A
--- NOTE | 2019-07-02 09:20 | IRCOV ---
[facility] IR Consult Office Visit DATE: Jul 01, 2019 REASON FOR CONSULTATION/CHIEF COMPLAINT: Nonhealing left foot wound. New right foot wound. HISTORY OF PRESENT ILLNESS: 73 male with known peripheral arterial disease status post left SFA to tibioperoneal trunk bypass in July 2018. Initially after the bypass left foot wound healed up. But then recurred in January 2019 with additional wounds. Patient has had amputation of all 4 toes of the left foot but big toe remains. Patient had a right lower extremity bypass in and was doing well. A new superficial wound has appeared in the last few months on the plantar surface of the right foot. Denies rest pain. Doesn't walk much and denies intermittent claudication. Continues to smoke 3 cigarettes a day. Poor control of diabetes. No chest pain, no angina no history of heart attacks. Patient is on statin. ALLERGIES: Please see below. HOME MEDICATIONS: Please see below. PAST MEDICAL HISTORY: 1. Diabetes. 2. Diabetic neuropathy. 3. Hyperlipidemia. 4. Colon cancer. PAST SURGICAL HISTORY: 1. Left foot amputations. 2. Hernia surgery 3. Colon surgery. 4. Bilateral lower extremity bypass grafts. FAMILY HISTORY: Coronary artery disease. SOCIAL HISTORY: Lives with family. Independent with activities of daily living. REVIEW OF SYSTEMS: Otherwise negative. PHYSICAL EXAMINATION: VITAL SIGNS: Please see below. GENERAL APPEARANCE: Appears well. Comfortable at rest. HEENT: No scleral icterus. RESPIRATORY: Symmetric breath sounds. CARDIOVASCULAR: Normal rate. ABDOMEN: Soft nontender. No pulsatile mass. EXTREMITIES: LEFT LOWER EXTREMITY: Pitting edema to mid-tibia. Bandaged left foot. Amputated second through fifth toe. Hallux remains. Femoral pulse 2+ popliteal pulses 1+ PT nonpalpable. RIGHT LOWER EXTREMITY: Superficial wound on plantar aspect of the foot. Femoral pulse 2+ popliteal pulses 1+ AT/PT 1+. NEUROLOGICAL: Alert and oriented. PSYCHIATRIC: Appropriate to circumstances. LABORATORY DATA: Please see below. Imaging: I personally reviewed the same day bilateral lower extremity arterial ultrasound performed. The left leg bypass extends from the common femoral to the tibia peroneal trunk and is patent but demonstrates significant stenosis at the proximal and distal anastomosis with elevated velocities. The [place] SFA is severely atherosclerosed with distal occlusion. The right lower extremity bypass graft is not seen. The [place] right SFA shows multi segment stenosis. Run off vessels are all monophasic. The arch vessels appear patent. ASSESSMENT/PLAN: 73 male with diabetes and bilateral lower extremity peripheral arterial disease status post multiple toe amputations on the left and bilateral bypass graft placements presents with new wounds on the left foot and new wound on the right foot. On imaging, the left bypass graft is patent with significant stenosis of the anastomoses and poor waveform in the run off vessels. The right bypass graft is not seen but the [place] SFA demonstrates long segment atherosclerotic stenosis with monophasic waveform and patent but poor runoff. Patient will require sequential bilateral lower extremity angiogram and interventions as appropriate. We will start with the left leg, patient will be scheduled for angiogram and angioplasty +/ stenting as required. We will then follow up with the right leg. I will schedule the patient for the procedure to be done under moderate sedation. I spent 30 minutes in consultation with the patient. Thank you for this referral. Allergies Coded Allergies: clindamycin (Verified Adverse Reaction, Mild, UPSET STOMACH, VOMITING, 03/04/19) Home Medications Scheduled Benazepril Hcl (Benazepril HCl), 5 MG PO DAILY, (Reported) Doxycycline Hyclate (Doxycycline Hyclate), 100 MG PO DAILY, (Reported) Empagliflozin (Jardiance), 25 MG PO DAILY, (Reported) Glipizide (Glipizide), 5 MG PO DAILY, (Reported) Insulin Glargine (Lantus), 60 UNITS SC QHS, (Reported) Simvastatin (Simvastatin), 20 MG PO DAILY, (Reported) Sitagliptin Phosphate (Januvia), 100 MG PO DAILY, (Reported) Miscellaneous Medications Amoxicillin/Potassium Clav (Augmentin 875-125 Tablet), 875 MG PO, (Reported) Lactobacillus Acidophilus (Acidophilus), 1 CAP PO, (Reported) VS, I&O, 24H, Fishbone Vital Signs/I&O Vital Signs Date Time Temp Pulse Resp B/P (MAP) Pulse Ox O2 Delivery O2 Flow Rate FiO2 07/01/19 11:40 98.1 81 18 124/60 (81) 96 AUBRIE STONE MD Jul 02, 2019 09:20
== END ==
LOC: M IRPOV 11:29
PROVIDERS: ATTEND Radiology Diagnostic Radiology
DX: I70.245 Atherosclerosis of native arteries of left leg with ulceration of other part of foot (principal); I70.235 Atherosclerosis of native arteries of right leg with ulceration of other part of foot; E11.621 Type 2 diabetes mellitus with foot ulcer; E11.51 Type 2 diabetes mellitus with diabetic peripheral angiopathy without gangrene; E11.40 Type 2 diabetes mellitus with diabetic neuropathy, unspecified; E78.5 Hyperlipidemia, unspecified; Z88.1 Allergy status to other antibiotic agents; Z89.422 Acquired absence of other left toe(s); Z85.038 Personal history of other malignant neoplasm of large intestine
CPT/HCPCS: 93925; G0463

== ENCOUNTER → 2019-07-03 | Outpatient (CLI) | payer MEDICARE, OTHER ==
[~2019-07-03] MED LIST changes: +HEPARIN 1,000 UNITS/ML 10ML VIAL (FOR RADIOLOGY& DIALYSIS ONLY) As Ordered ONE; +ISOVUE-300 61% 50ML VIAL (Q9967) As Ordered ONE; +LIDOCAINE 1% MDV 20ML VIAL As Ordered ONE; +LIDOCAINE 2% MDV 20 ML VIAL As Ordered ONE; +MIDAZOLAM INJ 2 MG/2 ML VIAL (J2250) As Ordered ONE; +SIMV20TA2 PO; -SIMV20TA22 PO; +diphenhydrAMINE INJ 50MG/ML VIAL (J1200) As Ordered ONE; +fentaNYL 100 MCG/2 ML INJECTION (J3010) As Ordered ONE
--- NOTE | 2019-07-03 07:45 | IRMSE ---
[facility] IR Moderate Sedation Eval. Date and Time Date: Jul 03, 2019 Time: 07:45 ASA Classification ASA Classification: III-Severe systemic dis. Mallampati Score: I NPO: Yes Obstructive Sleep Apnea: No Interval Plan: moderate sedation AUBRIE STONE MD Jul 03, 2019 07:45
--- NOTE | 2019-07-03 07:47 | IRHP ---
[facility] IR Pre-Procedure H & P General Procedure: Same Day Surgery Interval History and Physical I have seen the patient and reviewed last H & P performed within 30 days. There is no significant interval change. History of Present Illness Chief Complaint The patient is a 73-year-old male admitted with a reason for visit of PAD. PRE-PROCEDURE DIAGNOSIS: PAD HEART: normal rate. LUNGS: normal breathing at rest. ASA Classification ASA Classification: III-Severe systemic dis. Mallampati Score: I NPO: Yes Problems with prior sedation: No Obstructive Sleep Apnea: No Allergies Coded Allergies: clindamycin (Verified Adverse Reaction, Mild, UPSET STOMACH, VOMITING, 03/04/19) Home Medications Scheduled Aspirin (Aspirin EC), 81 MG PO DAILY, (Reported) Benazepril Hcl (Benazepril HCl), 5 MG PO DAILY, (Reported) Empagliflozin (Jardiance), 25 MG PO DAILY, (Reported) Glipizide (Glipizide), 5 MG PO DAILY, (Reported) Insulin Glargine (Lantus), 60 UNITS SC QHS, (Reported) Simvastatin (Simvastatin), 20 MG PO DAILY, (Reported) Sitagliptin Phosphate (Januvia), 100 MG PO DAILY, (Reported) Wheat Dextrin (Benefiber), 2 EACH PO DAILY, (Reported) Miscellaneous Medications Lactobacillus Acidophilus (Acidophilus), 1 CAP PO, (Reported) Discontinued Medications Amoxicillin/Potassium Clav (Augmentin 875-125 Tablet), 875 MG PO, (Reported) Discontinued Reason: Pt states not taking Doxycycline Hyclate (Doxycycline Hyclate), 100 MG PO DAILY, (Reported) Discontinued Reason: Pt states not taking VS, I&O, 24H, Fishbone Vital Signs/I&O Vital Signs Date Time Temp Pulse Resp B/P (MAP) Pulse Ox O2 Delivery O2 Flow Rate FiO2 07/03/19 07:42 97.3 63 16 98 AUBRIE STONE MD Jul 03, 2019 07:47
--- NOTE | 2019-07-03 10:25 | POST-OPPD ---
Postoperative Procedure Note Date Of Procedure: Jul 03, 2019 Time Of Procedure: 10:24 PREOPERATIVE DIAGNOSIS: PAD POSTOPERATIVE DIAGNOSIS: PAD FINDINGS: PAD PROCEDURE: left leg angio SURGEON: chey ANESTHESIA: none SPECIMENS: ESTIMATED BLOOD LOSS: < 15 ml COMPLICATIONS: none POSTOPERATIVE CONDITION: stable AUBRIE STONE MD Jul 03, 2019 10:25
[2019-07-03 15:45] VITALS: BP 140/63
--- NOTE | 2019-07-03 16:20 | REP ---
Left leg angiogram. Selective left iliac artery catheterization. Selective left superficial femoral bypass catheterization. Proximal bypass angioplasty. Distal bypass catheterization. Clinical Information: Bilateral non healing wounds. Bilateral bypass in legs. Left leg worse. Physician: Dr Collins.Procedure: The patient was advised of the benefits, risks, and alternatives of the procedure and informed consent was obtained.A time out was performed with verification of the patient's name, MRN, site of procedure, and type of procedure to be performed. The patient was positioned in the supine position on the angiographic table. The site was prepped and draped in the usual sterile fashion.Moderate sedation was not appropriate because of bradycardia. The physician spent 90 minutes of continuous [id number] time with the patient. A ortho tech radiograph reveals bilateral arterial calcifications and extensive SFA calcification. The right femoral artery was accessed with a micropuncture kit. A [employer] wire was advanced into the aorta. The micropuncture sheath was exchanged over the wire for a a 5-Afghan vascular sheath. A 5-Afghan flush catheter was advanced over the wire and used to catheterize the abdominal aorta. A pelvic arteriogram was performed. This demonstrates patent aortic bifurcation, patent bilateral common iliac and external iliac arteries. There is stenosis of the proximal bypass graft anastomosis in the common femoral artery. The flush catheter was exchanged over the wire for a glidecath. The glide cath was used to sub selectively catheterize the left common femoral artery. An arteriogram was performed and this demonstrates stenosis in the proximal bypass graft anastomosis. Patent profunda femoris. [place] superficial femoral artery is severely stenosed but patent. Repeat arteriogram was performed with the diagnostic catheter in the same location in the common femoral artery. This demonstrates occluded distal bypass graft. No popliteal artery. There are extensive collaterals in the distal thigh and upper calf. A run off arteriogram was performed and this demonstrates reconstitution of and patent anterior tibial artery and peroneal artery. The runoff to the foot demonstrates patent anterior tibial artery and peroneal artery; two-vessel runoff to the left foot with complete arch. Heparin was administered. A 6 mm x 200 millimeter angioplasty balloon was used to angioplasty the common femoral stenosis and proximal bypass anastomosis. The angioplasty balloon was removed over the wire. Follow-up arteriogram through the area demonstrates improvement in flow and improved appearance of the proximal anastomosis. The catheter was removed. A 5-[place] Mynx device was used to close the left groin arteriotomy and the sheath was removed. Hemostasis achieved. A sterile dressing was applied to the site. Patient tolerated the procedure well. Post procedure, bilateral pedal pulses are palpable. The patient was transferred to PRU in stable condition. Complications: None. Estimated blood loss: Less than 15 ml. Impression: 1. Left lower extremity angiogram demonstrates severe stenosis at the common femoral/proximal anastomosis of the bypass graft. Complete occlusion of the distal bypass graft. 2. Extensive collaterals feeding into two-vessel runoff to the left foot. 3. Successful angioplasty of proximal anastomosis with improved flow into the left leg. 4. Patient to follow up for right leg angiogram. Thank you this referral. Thank you for this referral Electronically Signed by Linda Collins MD 07/03/2019 04:18 P
== END ==
LOC: M IRPRO 07:34
PROVIDERS: ATTEND Radiology Diagnostic Radiology
DX: I70.33 Atherosclerosis of unspecified type of bypass graft(s) of the right leg with ulceration (principal); I70.249 Atherosclerosis of native arteries of left leg with ulceration of unspecified site
CPT/HCPCS: 37224; 75716; 75774; C1725; C1760; C1769; C1887; C1894; Q9967

== ENCOUNTER → 2019-07-16 | Outpatient (CLI) | payer MEDICARE, OTHER ==
[~2019-07-16] MED LIST changes: +GASTROGRAFIN SOLUTION 30ML (Q9963) As Ordered ONE; -HEPARIN 1,000 UNITS/ML 10ML VIAL (FOR RADIOLOGY& DIALYSIS ONLY) As Ordered ONE; -ISOVUE-300 61% 50ML VIAL (Q9967) As Ordered ONE; +ISOVUE-370 76% 100ML VIAL (Q9967) As Ordered ONE; -LIDOCAINE 1% MDV 20ML VIAL As Ordered ONE; -LIDOCAINE 2% MDV 20 ML VIAL As Ordered ONE; -MIDAZOLAM INJ 2 MG/2 ML VIAL (J2250) As Ordered ONE; -diphenhydrAMINE INJ 50MG/ML VIAL (J1200) As Ordered ONE; -fentaNYL 100 MCG/2 ML INJECTION (J3010) As Ordered ONE
--- NOTE | 2019-07-16 15:17 | REP ---
CT CHEST WITH IV CONTRAST: HISTORY: Restaging colon carcinoma. CT CONTRAST DOSE: 100 mL of intravenous Isovue-[address] is administered[address] chest CT study is from October 11, 2017. CT FINDINGS: No new pulmonary nodule is appreciated. The tiny nodular densities previously identified anteriorly in the right upper lobe and posteriorly in the right lower lobe are again noted unchanged, consistent with small benign scars. There is no evidence of hematogenous pulmonary metastasis. No hilar or mediastinal mass or adenopathy is observed. No pleural or pericardial effusion is seen. No adrenal lesion is observed. The visualized upper abdominal structures are unremarkable. Bone window settings show no bony destructive lesion. IMPRESSION: No evidence of thoracic metastatic disease. Electronically Signed by Christopher Winslow MD 07/16/2019 03:29 P
--- NOTE | 2019-07-16 15:20 | REP ---
CT ABDOMEN AND PELVIS WITH IV AND ORAL CONTRAST: HISTORY: Restaging colon carcinoma. Comparison CT study July 17, 2018. October 11, [address] study is also reviewed. CT CONTRAST DOSE: 100 mL of intravenous Isovue-[address] FINDINGS: There is a granulomatous calcification in the right lobe of the liver posteriorly. No focal hepatic lesion is seen. The spleen is intact. There is a tiny accessory splenule again noted. No adrenal lesion is seen. No abnormalities noted in the pancreas or gallbladder. There is an anastomotic suture line in the region of the hepatic flexure consistent with previous colon resection and reanastomosis. There are scattered diverticula in the descending portion of the colon. No colonic mass lesion is seen. There is a centrally fat density mass lesion with peripheral calcifications and peripheral soft tissue density in the pericolonic fat of the left upper quadrant adjacent to splenic flexure. This is seen on multiple prior studies and is gradually developing peripheral calcification. It is compatible with an area of fat necrosis. It measures 3.2 cm anteroposterior by 4.6 cm craniocaudal by 2.5 cm medial to lateral. It is felt to be benign by virtue of its central fat density. A normal appendix is seen. There is no evidence of mesenteric lymphadenopathy. Vascular calcification is seen in the abdominal aorta. The kidneys enhance symmetrically and are morphologically intact. There are normal-sized stable left inguinal lymph nodes, no evidence of adenopathy. No abdominal wall defect is seen. No bony destructive lesion. IMPRESSION: Postoperative changes in the abdomen. No evidence of intra-abdominal metastatic disease or recurrence. Electronically Signed by Christopher Winslow MD 07/16/2019 03:29 P
== END ==
LOC: M RAD 10:44
PROVIDERS: ATTEND Internal Medicine Hematology & Oncology
DX: C18.9 Malignant neoplasm of colon, unspecified (principal)
CPT/HCPCS: 71260; 74177; Q9963; Q9967

== ENCOUNTER → 2019-07-24 | Outpatient (CLI) | payer MEDICARE, OTHER ==
[~2019-07-24] MED LIST changes: -GASTROGRAFIN SOLUTION 30ML (Q9963) As Ordered ONE; +HEPARIN 1,000 UNITS/ML 10ML VIAL (FOR RADIOLOGY& DIALYSIS ONLY) As Ordered ONE; +ISOVUE-300 61% 50ML VIAL (Q9967) As Ordered ONE; -ISOVUE-370 76% 100ML VIAL (Q9967) As Ordered ONE; +LIDOCAINE 1% MDV 20ML VIAL As Ordered ONE; +MIDAZOLAM INJ 2 MG/2 ML VIAL (J2250) As Ordered ONE; +diphenhydrAMINE INJ 50MG/ML VIAL (J1200) As Ordered ONE; +fentaNYL 100 MCG/2 ML INJECTION (J3010) As Ordered ONE
--- NOTE | 2019-07-24 09:27 | POST-OPPD ---
Postoperative Procedure Note Date Of Procedure: Jul 24, 2019 Time Of Procedure: 09:25 PREOPERATIVE DIAGNOSIS: PAD RLE POSTOPERATIVE DIAGNOSIS: PAD RLE FINDINGS: hostile left groin post surgery not favorable for access. antegrade right groin acces obtained but SFA occlusion too close to access for recanalization from right groin. PROCEDURE: access and attempt right leg angiogram SURGEON: chey ANESTHESIA: moderate sedation ESTIMATED BLOOD LOSS: < 5 ml COMPLICATIONS: none POSTOPERATIVE CONDITION: stable AUBRIE STONE MD Jul 24, 2019 09:27
[2019-07-24 13:10] VITALS: BP 160/61
--- NOTE | 2019-07-24 15:12 | REP ---
Right leg angiogram. Ultrasound guided left groin access. Ultrasound-guided right groin access. Clinical Information: Bilateral lower extremity peripheral vascular disease with non healing wounds. Physician[s]: Dr Collins.Procedure: The patient was advised of the benefits, risks, and alternatives of the procedure and informed consent was obtained.A time out was performed with verification of the patient's name, MRN, site of procedure, and type of procedure to be performed. The patient was positioned in the supine position on the angiographic table. The site was prepped and draped in the usual sterile fashion.Moderate sedation was performed by the physician including the presence of an independent trained observer that assisted in monitoring the patient's level of consciousness and physiological status. Following the administration of Fentanyl and Versed, the physician spent 90 minutes of continuous [id number] time with the patient. A venereal disease investigator radiograph reveals right SFA calcifications. The left femoral artery was accessed with a micropuncture needle, under ultrasound guidance however due to significant scar tissue and postsurgical changes we could not proceed on the left side. The [place] right femoral artery was accessed under ultrasound guidance with a micropuncture needle for antegrade angiogram. However due to very proximal complete SFA occlusion, we could not proceed. Needle was removed, pressure held and hemostasis achieved. A sterile dressing was applied to the groins. Patient tolerated the procedure well. Complications: None Estimated blood loss: Less than 5 ml Impression: 1. Failed left groin access for right leg angiogram due to post surgical scarring. 2. Failed antegrade ipsilateral [place] femoral artery access due to proximity of complete SFA occlusion. Unable to obtain right leg angiogram or intervene. I will refer the patient to surgery. Thank you for this referral Electronically Signed by Linda Collins MD 07/24/2019 03:09 P
== END ==
LOC: M IRPRO 07:06
PROVIDERS: ATTEND Radiology Diagnostic Radiology
DX: I70.25 Atherosclerosis of native arteries of other extremities with ulceration (principal); I70.92 Chronic total occlusion of artery of the extremities; L76.82 Other postprocedural complications of skin and subcutaneous tissue
CPT/HCPCS: 36140; 76937; 99152; 99153; C1769; C1887; C1894; J2250; J3010; Q9967

== ENCOUNTER → 2019-08-08 | Outpatient (REF) | payer MEDICARE, OTHER ==
[~2019-08-08] MED LIST changes: -HEPARIN 1,000 UNITS/ML 10ML VIAL (FOR RADIOLOGY& DIALYSIS ONLY) As Ordered ONE; -ISOVUE-300 61% 50ML VIAL (Q9967) As Ordered ONE; -LIDOCAINE 1% MDV 20ML VIAL As Ordered ONE; -MIDAZOLAM INJ 2 MG/2 ML VIAL (J2250) As Ordered ONE; -diphenhydrAMINE INJ 50MG/ML VIAL (J1200) As Ordered ONE; -fentaNYL 100 MCG/2 ML INJECTION (J3010) As Ordered ONE
[2019-08-08 17:04] LABS: BLOOD UREA NITROGEN 15 MG/DL (7-18); C REACTIVE PROTEIN QUANTITATIV 1.66 MG/DL (0.00-0.30); CALCIUM LEVEL 8.9 MG/DL (8.8-10.2); CARBON DIOXIDE LEVEL 29 MEQ/L (21-32); CHLORIDE LEVEL 110 MEQ/L (98-107); CREATININE FOR GFR 0.96 MG/DL (0.70-1.30); GLOMERULAR FILTRATION RATE > 60.0 (>42); GLUCOSE, FASTING 96 MG/DL (70-100); POTASSIUM SERUM 3.9 MEQ/L (3.5-5.1); SODIUM LEVEL 143 MEQ/L (136-145)
[2019-08-08 17:31] LABS: BASO % 0.4 % (0.0-1.0); EOS # 0.1 10^3/uL (0.0-0.5); EOS % 0.7 % (0.0-3.0); HEMOGLOBIN 12.4 g/dl (13.5-17.5); LYMPH % 12.8 % (24.0-44.0); MEAN CORPUSCULAR HEMOGLOBIN 29.1 pg (27.0-33.0); MEAN CORPUSCULAR VOLUME 93.9 fl (80.0-96.0); MONO # 0.8 10^3/uL (0.0-0.8); MONO % 10.1 % (0.0-5.0); NEUTROPHILS # 5.6 10^3/uL (1.5-8.5); NEUTROPHILS % 75.6 % (36.0-66.0); PLATELET COUNT, AUTOMATED 259 10^3/uL (150-450); RED BLOOD COUNT 4.26 10^6/uL (4.30-6.10); WHITE BLOOD COUNT 7.4 10^3/uL (4.0-10.0)
[2019-08-08 18:40] LABS: ERYTHROCYTE SEDIMENTATION RATE 59 mm/hr (0-20)
== END ==
LOC: M LAB REF 16:21
PROVIDERS: ATTEND Physician Assistant
DX: E11.621 Type 2 diabetes mellitus with foot ulcer (principal)
CPT/HCPCS: 15275; 80048; 85025; 85652; 86140; Q4196

== ENCOUNTER → 2019-08-19 | Outpatient (CLI) | payer MEDICARE, OTHER ==
[~2019-08-19] MED LIST changes: +ISOVUE-370 76% 100ML VIAL (Q9967) As Ordered ONE
--- NOTE | 2019-08-19 15:58 | REP ---
CT ANGIOGRAPHY OF THE ABDOMEN AND LOWER EXTREMITY RUNOFF ARTERIES WITH IV CONTRAST: HISTORY: Peripheral vascular disease. CT CONTRAST DOSE: 100 mL of intravenous Isovue 370. CT ANGIOGRAPHIC FINDINGS: There is heavy vascular calcification throughout the infrarenal abdominal aorta. The suprarenal abdominal aorta shows mild vascular calcification. There is fairly heavy calcification at the origin of the superior mesenteric artery with some luminal narrowing. Singular non-stenotic renal arteries are observed. There is significant calcification at the origin of both renal arteries with evidence of moderate stenosis of the origin of the left main renal artery. The aorta is patent. Patent flow with some vascular calcification is seen in the inferior mesenteric artery. The common iliac arteries are patent with moderate vascular calcification bilaterally. There is a 50% narrowing in the mid common iliac artery on the right due to calcific plaquing. There is heavy vascular calcification at the origin of the internal iliac artery on the right, although there is flow within it. Right external iliac artery appears patent. There is moderate, 60% stenosis of the common femoral artery on the right due to calcific and mixed plaquing. High-grade stenosis is seen at the origin of the superficial femoral artery, and there is calcific plaquing at the origin of the profunda. Heavy calcification is seen along the course of the superficial femoral artery on the right with multiple high-grade stenoses although no occlusion is seen. There appear to be surgical clips in the popliteal fossa. There is patchy vascular calcification in the calf trifurcation and proximal calf runoff arteries. The anterior tibial artery on the right appears to be occluded at mid calf level. The posterior tibial and peroneal arteries are opacified to the distal calf and the posterior tibial artery is seen across the ankle into the hindfoot. On the left, the internal iliac artery appears to be occluded and heavily calcified. The left external iliac artery is patent with calcific and soft plaquing, no high-grade stenosis. There is 50% narrowing of the common femoral artery on the left, and there is some surrounding edema or fibrosis. There is calcific plaquing and what appears to be short segment occlusion of the proximal superficial femoral artery on the left. The profunda femoral artery shows 50% narrowing due to calcific plaquing. The left superficial femoral artery is occluded and heavily calcified. Collaterals appear to reconstitute the left popliteal segment. Tibioperoneal trunk is opacified. Posterior tibial artery is occluded essentially from its origin. Flow is seen in the peroneal and anterior tibial artery. The anterior tibial artery is patent across the ankle. The posterior tibial artery is reconstituted at the level of the ankle. Incidental note is made of bilateral L5 spondylolysis without spondylolisthesis. There is a granulomatous calcification in the liver. There is a tiny accessory splenule. IMPRESSION: Extensive vascular calcification. Bilateral common iliac artery stenoses. Left SFA long segment occlusion. Multisegmental high-grade stenosis right SFA. There is calf runoff disease also noted as above. Electronically Signed by Christopher Winslow MD 08/19/2019 06:50 P
== END ==
LOC: M RAD 08:54
PROVIDERS: ATTEND Surgery Vascular Surgery
DX: I70.8 Atherosclerosis of other arteries (principal); I73.9 Peripheral vascular disease, unspecified
CPT/HCPCS: 75635; Q9967

== ENCOUNTER → 2019-08-22 | Outpatient (REF) | payer MEDICARE, OTHER ==
[~2019-08-22] MED LIST changes: -ISOVUE-370 76% 100ML VIAL (Q9967) As Ordered ONE
== END ==
LOC: M SFHCPLAZ 13:23
PROVIDERS: ATTEND Physician Assistant
DX: E11.621 Type 2 diabetes mellitus with foot ulcer (principal)
CPT/HCPCS: 15275; 87070; 87077; 87186; Q4196

== ENCOUNTER → 2019-08-22 | Outpatient (REF) | payer MEDICARE, OTHER | LOC: M LAB REF 15:25 | PROVIDERS: ATTEND Physician Assistant | DX: L97.522 Non-pressure chronic ulcer of other part of left foot with fat layer exposed (principal) ==

== ENCOUNTER → 2019-09-18 | Outpatient (REF) | payer MEDICARE, OTHER ==
[~2019-09-18] MED LIST changes: -SIMV20TA2 PO; +SIMV20TA22 PO
[2019-09-18 13:31] LABS: BASO % 0.2 % (0.0-1.0); EOS % 0.2 % (0.0-3.0); HEMATOCRIT 41.4 % (42.0-52.0); HEMOGLOBIN 12.4 g/dl (13.5-17.5); LYMPH % 12.1 % (24.0-44.0); MEAN CORPUSCULAR HEMOGLOBIN 28.1 pg (27.0-33.0); MEAN CORPUSCULAR VOLUME 93.7 fl (80.0-96.0); MONO # 0.7 10^3/uL (0.0-0.8); MONO % 8.1 % (0.0-5.0); NEUTROPHILS # 6.4 10^3/uL (1.5-8.5); NEUTROPHILS % 78.8 % (36.0-66.0); PLATELET COUNT, AUTOMATED 345 10^3/uL (150-450); RED BLOOD COUNT 4.42 10^6/uL (4.30-6.10); WHITE BLOOD COUNT 8.1 10^3/uL (4.0-10.0)
[2019-09-18 14:15] LABS: ERYTHROCYTE SEDIMENTATION RATE 63 mm/hr (0-20)
== END ==
LOC: M LAB REF 12:24
PROVIDERS: ATTEND Physician Assistant
DX: E11.621 Type 2 diabetes mellitus with foot ulcer (principal)
CPT/HCPCS: 15275; 85025; 85652; 86140; Q4196

== ENCOUNTER → 2019-09-26 | Outpatient (REF) | payer MEDICARE, OTHER | LOC: M LAB REF 12:42 | PROVIDERS: ATTEND Physician Assistant | DX: E11.621 Type 2 diabetes mellitus with foot ulcer (principal) ==

== ENCOUNTER → 2019-10-15 | Outpatient (CLI) | payer MEDICARE, OTHER ==
[2019-10-15 13:10] LABS: HEMATOCRIT 40.6 % (42.0-52.0); HEMOGLOBIN 12.2 g/dl (13.5-17.5); MEAN CORPUSCULAR VOLUME 89.8 fl (80.0-96.0); PLATELET COUNT, AUTOMATED 308 10^3/uL (150-450); RED BLOOD COUNT 4.52 10^6/uL (4.30-6.10); WHITE BLOOD COUNT 6.8 10^3/uL (4.0-10.0)
[2019-10-15 14:04] LABS: ALBUMIN 2.8 GM/DL (3.2-5.2); ALT/SGPT 29 U/L (12-78); BILIRUBIN,TOTAL 0.4 MG/DL (0.2-1.0); BLOOD UREA NITROGEN 19 MG/DL (7-18); CALCIUM LEVEL 9.2 MG/DL (8.8-10.2); CARBON DIOXIDE LEVEL 24 MEQ/L (21-32); CHLORIDE LEVEL 104 MEQ/L (98-107); CHOLESTEROL LEVEL 132 MG/DL (<200); CHOLESTEROL RISK RATIO 3.473 (<5); CREATININE FOR GFR 1.23 MG/DL (0.70-1.30); GLOMERULAR FILTRATION RATE > 60.0 (>42); GLUCOSE, FASTING 352 MG/DL (70-100); HDL CHOLESTEROL 38 MG/DL (>40); LDL CHOLESTEROL 63 MG/DL (<100); MAGNESIUM LEVEL 2.3 MG/DL (1.8-2.4); NON-HDL-C 94 MG/DL; POTASSIUM SERUM 4.7 MEQ/L (3.5-5.1); SODIUM LEVEL 139 MEQ/L (136-145); TOTAL PROTEIN 7.4 GM/DL (6.4-8.2); TRIGLYCERIDES LEVEL 155 MG/DL (<150)
[2019-10-15 14:40] LABS: CREATININE, URINE 54.9 MG/DL; MALB URINE SIEMENS 9.2 MG/L; MAU/CREAT RATIO 16.7 MCG/MG (0.0-30.0)
[2019-10-15 14:51] LABS: HEMOGLOBIN A1c 10.2 %
== END ==
LOC: M PLALAB 10:57
PROVIDERS: ATTEND Internal Medicine
DX: E11.3553 Type 2 diabetes mellitus with stable proliferative diabetic retinopathy, bilateral (principal); E78.00 Pure hypercholesterolemia, unspecified; I10 Essential (primary) hypertension; Z79.899 Other long term (current) drug therapy

== ENCOUNTER → 2019-10-20 | Outpatient (REF) | payer MEDICARE, OTHER | LOC: M SFHCPLAZ 15:12 | PROVIDERS: ATTEND Internal Medicine Infectious Disease | DX: M86.672 Other chronic osteomyelitis, left ankle and foot (principal); Z23 Encounter for immunization | CPT/HCPCS: 87070; 87077; 87186; 87205; 90682; G0008; G0463 ==

== ENCOUNTER → 2019-10-24 | Outpatient (CLI) | payer MEDICARE, OTHER ==
--- NOTE | 2019-10-24 20:36 | REPVR ---
PROCEDURE INFORMATION: Exam: MR Left Lower Extremity Other Than Joint Without and With Contrast; Foot Exam date and time: 10/24/2019 4:34 PM Age: 73 years old Clinical indication: Condition or disease; Other: Osteo; Prior surgery; Surgery date: 6+ months; Surgery type: Partial amputation; Additional info: Osteomyelitis of left foot TECHNIQUE: Imaging protocol: MR of the Left lower extremity without and with intravenous contrast. Exam focused on the foot. Contrast material: PROHANCE; Contrast volume: 15 ml; Contrast route: IV; COMPARISON: MRI-Foot W/O FOL WITH 02/14/2016 11:04 AM FINDINGS: Bones/joints: There is diffuse bone marrow edema throughout the tarsal bones, mainly in the cuneiform is and cuboid. Similar edema in the metatarsal bases, worst in the 4th and 5th metatarsal bases for there is also demineralization. No displaced fracture. Overall alignment is normal. Soft tissues: There is enhancement in the metatarsals in the area of marrow edema and surrounding soft tissues. Diffuse subcutaneous edema. Area of skin ulceration in the medial calcaneal soft tissues. Muscles: Soft tissue edema in the residual foot musculature. Fluid: No drainable fluid collection is seen. IMPRESSION: 1. Skin ulceration with edema in the medial calcaneal soft tissues. No drainable fluid collection is seen. 2. Diffuse marrow edema in the midfoot as above with associated enhancement is concerning for osteomyelitis. Correlation with foot radiographs would be beneficial. Electronically signed by: Brian Multani On 10/24/2019 20:36:06 PM
== END ==
LOC: M PLARAD 14:13
PROVIDERS: ATTEND Internal Medicine Infectious Disease
DX: M86.672 Other chronic osteomyelitis, left ankle and foot (principal)
CPT/HCPCS: 15275; 73720; Q4110

== ENCOUNTER → 2019-10-30 | Outpatient (CLI) | payer MEDICARE, OTHER ==
--- NOTE | 2019-10-30 14:19 | REP ---
Clinical: History of osteomyelitis. Technique: AP and lateral views of the left foot. Comparison: 07/29/2018 Findings: The patient is status post multiple amputations involving the second through fifth toes. Residual osseous structures demonstrate degenerative changes. No obvious acute periosteal reaction is appreciated. No subcutaneous emphysema. No foreign body. Impression: No obvious acute process by radiographic evaluation. Electronically Signed by Tutu Morales MD 10/30/2019 02:11 P
[2019-10-30 19:45] LABS: BASO % 0.4 % (0.0-1.0); EOS # 0.1 10^3/uL (0.0-0.5); EOS % 1.6 % (0.0-3.0); HEMATOCRIT 39.8 % (42.0-52.0); HEMOGLOBIN 11.6 g/dl (13.5-17.5); LYMPH # 1.2 10^3/uL (1.5-5.0); LYMPH % 17.8 % (24.0-44.0); MEAN CORPUSCULAR HEMOGLOBIN 26.6 pg (27.0-33.0); MEAN CORPUSCULAR HGB CONC 29.1 g/dl (32.0-36.5); MEAN CORPUSCULAR VOLUME 91.3 fl (80.0-96.0); MONO # 0.6 10^3/uL (0.0-0.8); NEUTROPHILS % 71.6 % (36.0-66.0); PLATELET COUNT, AUTOMATED 331 10^3/uL (150-450); RED BLOOD COUNT 4.36 10^6/uL (4.30-6.10)
[2019-10-30 19:47] LABS: BLOOD UREA NITROGEN 16 MG/DL (7-18); C REACTIVE PROTEIN QUANTITATIV 7.17 MG/DL (0.00-0.30); CALCIUM LEVEL 8.6 MG/DL (8.8-10.2); CARBON DIOXIDE LEVEL 24 MEQ/L (21-32); CHLORIDE LEVEL 106 MEQ/L (98-107); CREATININE FOR GFR 1.03 MG/DL (0.70-1.30); GLOMERULAR FILTRATION RATE > 60.0 (>42); GLUCOSE, FASTING 215 MG/DL (70-100); POTASSIUM SERUM 4.2 MEQ/L (3.5-5.1); SODIUM LEVEL 140 MEQ/L (136-145)
[2019-10-30 20:30] LABS: ERYTHROCYTE SEDIMENTATION RATE 90 mm/hr (0-20)
== END ==
LOC: M ADAMS 13:41
PROVIDERS: ATTEND Internal Medicine Infectious Disease
DX: M86.672 Other chronic osteomyelitis, left ankle and foot (principal)

== ENCOUNTER → 2019-11-07 | Outpatient (REF) | payer MEDICARE, OTHER ==
[~2019-11-07] MED LIST changes: +BACT800T5 PO
== END ==
LOC: M LAB REF 14:00
PROVIDERS: ATTEND Physician Assistant
DX: L97.524 Non-pressure chronic ulcer of other part of left foot with necrosis of bone (principal)
CPT/HCPCS: 15275; 87070; 87077; 87186; Q4110

== ENCOUNTER → 2019-11-14 | Outpatient (CLI) | payer MEDICARE, OTHER ==
[2019-11-14 13:53] LABS: BASO % 0.5 % (0.0-1.0); EOS % 0.4 % (0.0-3.0); HEMATOCRIT 40.9 % (42.0-52.0); HEMOGLOBIN 12.3 g/dl (13.5-17.5); LYMPH # 1.2 10^3/uL (1.5-5.0); LYMPH % 14.4 % (24.0-44.0); MEAN CORPUSCULAR HEMOGLOBIN 26.2 pg (27.0-33.0); MEAN CORPUSCULAR HGB CONC 30.1 g/dl (32.0-36.5); MEAN CORPUSCULAR VOLUME 87.2 fl (80.0-96.0); MONO # 0.8 10^3/uL (0.0-0.8); NEUTROPHILS # 6.2 10^3/uL (1.5-8.5); NEUTROPHILS % 74.9 % (36.0-66.0); PLATELET COUNT, AUTOMATED 355 10^3/uL (150-450); RED BLOOD COUNT 4.69 10^6/uL (4.30-6.10); WHITE BLOOD COUNT 8.3 10^3/uL (4.0-10.0)
[2019-11-14 14:19] LABS: ERYTHROCYTE SEDIMENTATION RATE 77 mm/hr (0-20)
== END ==
LOC: M PLALAB 10:49
PROVIDERS: ATTEND Physician Assistant
DX: E11.621 Type 2 diabetes mellitus with foot ulcer (principal)
CPT/HCPCS: 15275; 36415; 85025; 85652; 86140; Q4110

== ENCOUNTER → 2019-12-03 | Outpatient (CLI) | payer MEDICARE, OTHER ==
[~2019-12-03] MED LIST changes: +HEPARIN 1,000 UNITS/ML 10ML VIAL (FOR RADIOLOGY& DIALYSIS ONLY)(J1644-10) As Ordered ONE; +ISOVUE-300 61% 50ML VIAL (Q9967) As Ordered ONE; +LIDOCAINE 1% MDV 20ML VIAL As Ordered ONE; +MIDAZOLAM INJ 2 MG/2 ML VIAL (J2250) As Ordered ONE; +fentaNYL 100 MCG/2 ML INJECTION (J3010) As Ordered ONE
[2019-12-03 17:30] VITALS: BP 135/62
--- NOTE | 2019-12-03 17:48 | ROOPDOC ---
[facility] Report Of Operation Report of Operation DATE OF PROCEDURE: 12/03/19 PREPROCEDURE DIAGNOSES: Atherosclerosis of the lower elwha vessels with lifestyle limiting claudication right lower extremity and nonhealing wound right foot. POSTPROCEDURE DIAGNOSES: Same. PROCEDURE: 1. Ultrasound-guided access left common femoral artery 2. Aortoiliofemoral arteriogram and selection right common femoral artery with right lower extremity runoff 3. Angioplasty bilateral common iliac arteries was 6 x 100 Pegram balloon 4. Angioplasty right superficial femoral artery proximally was 6 x 100 Pegram balloon 5. Attempt to cross right SFA and popliteal artery prior to angioplasty and stenting, aborted 6. Completion arteriograms 7. Mynx closure left common femoral artery SURGEON: Osmin Lin MD ANESTHESIA: Local anesthesia with 5 mL lidocaine. Moderate intravenous conscious sedation was supervised by Dr. Lin. The patient was independently monitored by registered nurse assigned in the department of radiology oozing automated blood pressure, EKG, and pulse oximetry. The detailed sedation record is probably stored in the hospital information system. The following is a brief sedation record: Start time 10:38, stop time 13:13, fentanyl 50 g IV, Versed 2 mg IV, heparin 5000 units IV. INDICATION FOR PROCEDURE: Mr. Mcclendon is a very pleasant 74-year-old gentleman w ith end-stage profound bilateral lower extremity peripheral vascular disease with nonhealing wounds of the bilateral feet. He has had extensive open and endovascular revascularizations in the past, all have failed. He did quit smoking, and is trying very hard to be compliant with wound care and directions from the wound care center, and is compliant with his medications and treatment. Because of this, we discussed trying to do as much as we could to revascularize the lower extremities. On the left lower extremity, the patient has extremely limited options. He might have a 20% chance of successful outcome from a redo femoropopliteal bypass with cadaver vein, but I think there is an 80% chance of significant complications and possible failure. He does not have enough blood flow for below-knee amputation and thus if amputation was needed, I would recommend an above-knee amputation with the existing blood flow. For now, he is treating his wounds with antibiotics and wound care from the wound care center, and so far his foot is doing better and starting to heal. We are hopeful he will continue to heal and he will be able to salvage this limb. The right lower extremity has also had failed intervention, with a femoral to below-knee popliteal bypass and percutaneous interventions. Unfortunately, the patient would be high risk for a redo operation on the right lower extremity as well, therefore I offered to try to open up blood flow on the right lower extremity with a percutaneous intervention. This is risky and challenging, because the patient has significant scar in the left groin where we would access and does not have an option for antegrade access on the right due to the proximity of the SFA stenosis to the common femoral artery. It also is challenging because his up and over access is through a narrow stenotic iliac system. It is also challenging because he has heavy calcified bulky plaque in the right SFA that may be more challenging to cross that it appears. I discussed all of this with the patient and his , and I felt that it was still worthwhile to try and intervene endovascularly. Risks benefits alternatives were extensively discussed and the patient was agreeable to proceed. Informed consent was obtained. INTERPRETATION: 1. There is a 30% stenosis at the distal aorta just proximal to the origin of the common iliac arteries bilaterally. The iliac bifurcation is high and narrow, which makes up and over access challenging. There is plaque in ectasia in the iliac arteries, but no focal stenoses noted. The hypogastric arteries are patent as are the external iliac arteries. 2. The right common femoral artery runs often to the profunda which case the main flow to the right lower extremity. The SFA has multiple areas of heavy focal near occlusive plaque, calcified, and these are flow-limiting. There are also certain areas within the SFA that have near occlusive stenoses. The popliteal artery proximally is also stenotic and heavy with plaque. The distal popliteal artery is patent. The runoff is through the peroneal and posterior tibial arteries which are diminutive and calcified but patent. The anterior tibial artery occludes near its origin and does not reconstitute. 3. Angioplasty of the common iliac arteries simultaneously with an up in over 6 x 100 Pegram balloon provided successful predilation for sheath placement. 4. Attempt to cross heavily calcified and chronic near occlusions in the s uperficial femoral artery and popliteal artery proximally, aborted. Angioplasty of the proximal SFA was 6 x 100 Pegram balloon with improvement of inflow only and resolution of distal SFA subintimal communication with femoral vein. Multiple AV fistulas were noted after extensive attempts to cross the right superficial femoral artery and popliteal artery proximally, and completion arteriogram showed the fistula's had resolved with manual compression of the lower thigh and knee and inflation of the proximal SFA balloon. There was runoff through the SFA and popliteal into two-vessel posterior tibial and peroneal runoff. REPORT OF OPERATION: Rianna Mcclendon was brought to the angiographic suite in stable condition. His bilateral groins were prepped and draped in sterile fashion. A timeout was performed. 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 Local anesthesia was administered to the skin and subcutaneous tissue in the left groin and we then spent about 40 minutes trying to gain access in the left femoral vessel. There was significant scar in the left groin, and the access to the artery itself was challenging, but after successfully accessing and placing the wire under fluoroscopic guidance, we were not able to pass a micro-sheath over the wire. We tried several different micro-sheath, but they would not passed through the scar. We then held pressure for 15 minutes until hemostasis was achieved, and debris access to a bit higher on the common femoral artery. We again passed a wire through this access under fluoroscopic guidance, and this time we tried a different micro-sheath and then the 3 we tried originally, and we were able to successfully get the sheath into the vessel. We then passed a Glidewire through this access and remove the sheath and passed an 8 Prydeinig dilator over the wire, and we removed this using a Seldinger technique and replaced it with a 6 Prydeinig sheath and flushed the sheath was saline. This was an extremely challenging access, and it was very time consuming, but ultimately successful. We then began the arduous task of trying to get up and over the bifurcation with a 6 Prydeinig sheath. We initially tried multiple wires and catheters but could not pass the sheath over the bifurcation. It is a very high tight bifurcation, and challenging for sheath placement. We placed a 6 x 100 Pegram balloon over the bifurcation to predilated the iliacs and make sheath placement easier, and arteriogram following this showed the vessels were still patent with no embolization or extravasation. We then were able to pass a 6 Prydeinig sheath over into the right common femoral artery and the sheath was flushed with saline. This also took quite a bit of time, but we were eventually successful. Next, we attempted to cross from the proximal SFA down through the profunda, but are wire continually got hung up on heavy calcified plaque and eventually we were only able to cross and a subintimal plane. Unfortunately, we could not reenter the true lumen despite all of our efforts over the next hour. We tried multiple catheters and wires. We tried multiple different passes trying to get into a different plane, but were unsuccessful. We found that during our attempts, AV fistulas were created between the superficial femoral artery in the superficial femoral vein. A 6 x 100 Pegram balloon was passed into the SFA proximally and a four-minute inflation was done while manual compression was held over the areas of AV fistula. Arteriogram following this showed the AV fistulas were still patent. We then performed the inflation of the 6 x 100 Pegram balloon and manual compression a second time, for 6 minutes. After this, the AV fistulas were still patent. We did this 2 more times unsuccessfully but on the last attempt we were successful in eliminating flow through the AV fistulas with compression behind the knee and over the medial thigh. This was a relief due to the fact that we had spent over an hour trying to cross through the true lumen in the SFA and popliteal, and were completely unsuccessful. Because we could not cross into the true lumen distal to the AV fistulas, we could not inflatable balloon or stent to cover the AV fistulas. We are fortunate that we were able to resolve them with compression alone. Following this, we did check a runoff to make sure we still have flow to the lower extremity and there was no extravasation, and we noted no embolization extravasation or dissections below the knee. At this point, I felt if we continue to try to cross an intervening, we likely would make the patient worse instead of better and we concluded the procedure. We exchange the sheath over wire for short 6 Prydeinig sheath and deployed a Mynx closure device in the left common femoral artery with good hemostasis. Pressure was held for 10 minutes and the patient was taken to recovery in stable condition. Despite the length of the procedure and the arduous nature of the procedure, the patient tolerated it very well and did not have any difficulty with the sedation either. ESTIMATED BLOOD LOSS: Approximately 10 mL. COMPLICATIONS: No complications, but this was an extremely technically challenging case and we were not able to successfully provide improvement in flow in the right lower extremity as we had hoped. PLAN: At this point, I'm not sure what the best option for the patient is. He is high risk for right lower extremity open revascularization for the same reasons at the left lower extremity is risky. It is a redo procedure, he does not have saphenous vein and would need an artificial conduit, he is very thin and protein malnourished which will make healing difficult, especially when opening through scar tissue, and his inflow and outflow arteries are diseased. Nevertheless, we like to talk to him about options in clinic. I'm not sure how challenging a common femoral to below-knee popliteal artery bypass would be for him on the right, but I think it is worth considering. We will see how he does after the arteriogram. Will start working on cardiac clearance for potential open surgery. The patient, his , and his daughter were extensively counseled after the procedure. All questions were answered. OSMIN LIN MD Dec 03, 2019 17:47
== END ==
LOC: M IRPRO 08:32
PROVIDERS: ATTEND Surgery Vascular Surgery
DX: I70.211 Atherosclerosis of native arteries of extremities with intermittent claudication, right leg (principal); I70.235 Atherosclerosis of native arteries of right leg with ulceration of other part of foot; I70.92 Chronic total occlusion of artery of the extremities; I70.0 Atherosclerosis of aorta; Z87.891 Personal history of nicotine dependence
CPT/HCPCS: 37220; 37224; 75710; 99152; 99153; C1725; C1760; C1769; C1887; C1894; C2627; J1644; J2250; J3010; Q9967

== ENCOUNTER → 2019-12-19 | Outpatient (CLI) | payer MEDICARE, OTHER ==
[~2019-12-19] MED LIST changes: -HEPARIN 1,000 UNITS/ML 10ML VIAL (FOR RADIOLOGY& DIALYSIS ONLY)(J1644-10) As Ordered ONE; -ISOVUE-300 61% 50ML VIAL (Q9967) As Ordered ONE; -LIDOCAINE 1% MDV 20ML VIAL As Ordered ONE; -MIDAZOLAM INJ 2 MG/2 ML VIAL (J2250) As Ordered ONE; -fentaNYL 100 MCG/2 ML INJECTION (J3010) As Ordered ONE
[2019-12-19 14:26] LABS: POTASSIUM SERUM 5.2 MEQ/L (3.5-5.1)
== END ==
LOC: M PLALAB 12:07
PROVIDERS: ATTEND Physician Assistant
DX: E11.621 Type 2 diabetes mellitus with foot ulcer (principal)
CPT/HCPCS: 36415; 80051; G0463

== ENCOUNTER → 2020-01-12 | Outpatient (REF) | payer MEDICARE, OTHER ==
[2020-01-12 10:43] LABS: POTASSIUM SERUM 4.4 MEQ/L (3.5-5.1)
== END ==
LOC: M LAB REF 10:24
PROVIDERS: ATTEND Physician Assistant
DX: E11.621 Type 2 diabetes mellitus with foot ulcer (principal)

== ENCOUNTER → 2020-01-12 | Outpatient (REF) | payer MEDICARE, OTHER ==
[2020-01-12 13:37] LABS: HEMOGLOBIN A1c 10.1 %
== END ==
LOC: M LAB REF 10:32
PROVIDERS: ATTEND Internal Medicine
DX: E11.3553 Type 2 diabetes mellitus with stable proliferative diabetic retinopathy, bilateral (principal); I10 Essential (primary) hypertension

== ENCOUNTER 2020-02-11 10:36 | Inpatient (IN) | payer MEDICARE, OTHER ==
--- NOTE | 2020-02-06 14:18 | HPEPDOC ---
[facility] Medical History & Physical Date of Admission Feb 11, 2020 Date of Service: Feb 11, 2020 History and Physical Vascular Surgery. Dr. Lin HPI: 74 year old M with a past medical history significant for profound bilateral lower extremity arterial disease with failed femoropopliteal bypasses and interventions in the lower extremities, status post multiple partial amputations of the left foot with nonhealing wounds, plantar wound of the right foot which has been stable however worsening of the left foot wound. The patient returned to vascular clinic 02/02/[address] Lin and discuss left above-knee amputation with plan to proceed with amputation 02/11/20. Denies any fevers, chills, weakness, fatigue, Headache, Chest Pain, Shortness of breath, cough, palpitations, abdominal pain, N/V/D or changes in bowel or bladder habits. PMHx: Diabetes Dyslipidemia Colon cancer PAD Hypertension PSHX: Colon resection Right subclavian [id number] insertion Right lower extremity bypass procedure Hernia repair Left foot 4 toes amputated Bilateral lower extremity arteriogram SOCHX: Tobacco use: One third pack per day ETOH: Denies FAMHX: History of diabetes, cancer ROS: As noted in HPI, otherwise 11pt ROS of systems reviewed and unremarkable. PE: GEN: 74 yo M, appears stated age. Well-nourished, well developed. No acute distress. HEENT: Normocephalic, atraumatic. Moist mucous membranes. CHEST: Regular rate and rhythm, +S1, +S2 LUNGS: Clear to auscultation bilaterally. ABD: Round, soft, non-tender, non-distended. EXT: distal pulses not palpable. Monophasic wave forms at the DP and PT bilaterally. Right plantar foot wound is small and clean dry and intact. No surrounding erythema or cellulitis. Left lower extremity with great toe intact only, ray amputation of the second through fourth toes is unhealed with open wound and fibrinous exudate. Mild erythema noted over the entire foot but no obvious cellulitis or induration, no purulent drainage noted. NEURO: Alert and oriented x 3. No focal deficits appreciated. A&P: 1. Nonhealing wound left lower extremity with plan for left above-knee amputation as per Dr. Lin 02/11/20. Informed consent for left above-knee amputation has been obtained and this placed on the chart. Consent for blood products is placed with the chart. Nothing by mouth IV fluids as per anesthesia CBC, BMP, INR, PTT, type and screen preoperatively. Ancef 2 g IV preoperatively. 2. Profound bilateral lower extremity arterial disease with failed femoropopliteal bypasses and interventions in the lower extremities. Tentative plan is to eventually reschedule right redo femoral to below-knee popliteal bypass with cadaver vein. The patient remains on aspirin 81 mg daily/statin. Vital Signs Admission vital signs pending. Laboratory Data Labs 24H Admission labs pending. Home Medications Scheduled Aspirin (Aspirin EC) 81 Mg Tablet.dr, 81 MG PO DAILY Benazepril Hcl (Benazepril HCl) 10 Mg Tab, 5 MG PO DAILY Empagliflozin (Jardiance) 25 Mg Tab, 25 MG PO DAILY Glipizide (Glipizide ER) 2.5 Mg Tab.er.24, 2.5 MG PO QAM Glipizide (Glipizide) 5 Mg Tablet, 5 MG PO QPM Insulin Glargine (Lantus) 1 Units/0.01 Ml Susp, 60 UNITS SC QHS Simvastatin (Simvastatin) 20 Mg Tab, 20 MG PO DAILY Sitagliptin Phosphate (Januvia) 100 Mg Tab, 100 MG PO DAILY Miscellaneous Medications Lactobacillus Acidophilus (Acidophilus) 1 Each Capsule, 1 CAP PO Allergies Coded Allergies: clindamycin (Verified Adverse Reaction, Mild, UPSET STOMACH, VOMITING, 03/04/19) A-FIB/CHADSVASC A-FIB History Current/History of A-Fib/PAF?: No Current PO Anticoag Therapy: Zina Rico Feb 06, 2020 14:18
[~2020-02-11] VITALS: Ht 177.8 cm; Wt 74.4 kg
[~2020-02-11 10:36] MED LIST changes: +LR 1,000 ML IV ONE; +ceFAZolin SOD 2 GM in IV 1 EA IV ONE; +prebiotic PO
[2020-02-11 11:21] LABS: HEMATOCRIT 45.3 % (42.0-52.0); HEMOGLOBIN 13.5 g/dl (13.5-17.5); MEAN CORPUSCULAR HEMOGLOBIN 25.9 pg (27.0-33.0); MEAN CORPUSCULAR HGB CONC 29.8 g/dl (32.0-36.5); MEAN CORPUSCULAR VOLUME 86.8 fl (80.0-96.0); PLATELET COUNT, AUTOMATED 297 10^3/uL (150-450); RED BLOOD COUNT 5.22 10^6/uL (4.30-6.10); WHITE BLOOD COUNT 7.9 10^3/uL (4.0-10.0)
[2020-02-11 11:32] LABS: INR 1.07; PARTIAL THROMBOPLASTIN TIME 29.3 SECONDS (25.0-38.4); PROTHROMBIN TIME 13.7 SECONDS (11.8-14.0)
[2020-02-11] MEDS ORDERED: propofoL 200 MG/20 ML VIAL As Ordered ONE (11:33)
[2020-02-11] MEDS ORDERED: LIDOCAINE 2% INJ 100 MG/5 ML SDV (FOR ANES.) As Ordered ONE (11:34)
[2020-02-11] MEDS ORDERED: fentaNYL 100 MCG/2 ML INJECTION (J3010) As Ordered ONE (11:34)
[2020-02-11] MEDS ORDERED: ONDANSETRON 4MG/2ML VIAL (J2405) As Ordered ONE (11:34)
[2020-02-11 11:36] LABS: BLOOD UREA NITROGEN 27 MG/DL (7-18); CALCIUM LEVEL 9.6 MG/DL (8.8-10.2); CARBON DIOXIDE LEVEL 29 MEQ/L (21-32); CHLORIDE LEVEL 108 MEQ/L (98-107); CREATININE FOR GFR 0.98 MG/DL (0.70-1.30); GLOMERULAR FILTRATION RATE > 60.0 (>42); GLUCOSE, FASTING 234 MG/DL (70-100); POTASSIUM SERUM 4.9 MEQ/L (3.5-5.1); SODIUM LEVEL 143 MEQ/L (136-145)
[2020-02-11] MEDS ORDERED: HumaLOG INSULIN (NovoLOG) PER UNIT As Ordered ONE (12:04)
[2020-02-11] MEDS ORDERED: HYDROmorphone HCL 2 MG/ML 1ML VIAL (J1170) As Ordered ONE (13:03)
[2020-02-11] MEDS ORDERED: BUPIVACAINE/EPIN 0.5% 30 ML VIAL As Ordered ONE (13:14)
[2020-02-11] MEDS ORDERED: ACETAMINOPHEN 1000MG 100ML IV BTL (OFIRMEV) (J0131 PER 10MG) As Ordered ONE (13:56)
[2020-02-11] MEDS ORDERED: KETOROLAC 60 MG/2 ML VIAL (J1885) As Ordered ONE (14:04)
--- NOTE | 2020-02-11 14:31 | ROOPDOC ---
[facility] Report Of Operation Report of Operation DATE OF PROCEDURE: 02/11/20 PREPROCEDURE DIAGNOSES: Atherosclerosis of the [place] arteries with non-healing wound left foot POSTPROCEDURE DIAGNOSES: Same PROCEDURE: Left above knee amputation SURGEON: Osmin Lin MD ANESTHESIA: LMA and local INDICATION FOR PROCEDURE: This a very pleasant 74-year-old gentleman with severe recurrent bilateral lower extremity peripheral vascular disease with nonhealing wounds of both feet, worse on the left. The patient has had waxing and waning of healing of the left foot wound for an extended period of time, which has left him very frustrated. Options for revascularization are extremely limited and high risk, and he has elected not to pursue a redo bypass on the left that likely would be unsuccessful. After trying extensive wound healing efforts, the patient presented to discuss options for an above-knee amputation. He does not have adequate blood flow for a below-knee amputation on the left. Risks benefits and alternatives were explained at length and he was agreeable to proceed. Informed consent was obtained. We did discuss that with his long-standing poor nutrition due to lack of appetite, it may be a bit difficult to get him to heal. Protein is the building blocks for healing, and we have encouraged the patient to try to eat and is much protein as possible before surgery, and to try supplement shakes as well. He says he is doing the best he can with this. We've also encouraged him not to smoke at all, but he is still smoking a little. This also was not helpful for wound healing. We will continue to try and encourage him to eat well and not to smoke. It's possible by removing the foot, his appetite might actually improve, but this is not a certainty. We will do our best to help him through the postoperative period and with wound healing. Down the road, we will pursue a redo right femoral-popliteal bypass, also high risk but with a better possibility of success due to better tibial outflow than what he has on the left. We'll proceed with left above-knee amputation today. REPORT OF OPERATION: Patient was brought to the OR in stable condition and placed supine on the aortic table. LMA anesthesia and antibiotics were administered without consultation. His left lower extremity was prepped and draped in a sterile fashion. A timeout was performed. An Esmarch was used to e xsanguinate the left leg and divorce attorney Was inflated to 250 mmHg. A fishmouth incision was made very distally on the left lower extremity at the knee and carried down through the subcutaneous tissue with Bovie cautery. The soft tissue and muscle were divided circumferentially. There was very little muscle noted. Vascular structures were suture ligated and divided, including the excluded popliteal artery, popliteal vein, occluded left lower extremity bypass, and saphenous vein. We elevated the periosteum circumferentially around the femur and transected the femur high within our incision. The lower leg was sent for pathology. We beveled the anterior edge and a rasp was used to smooth the bone. The tourniquet was released and Bovie cautery and suture ligation were used for hemostasis. Local anesthesia was injected into the perineural tissue and the nerves were high ligated. Tissue was carefully closed over the nerve tracks to prevent neuroma formation. We irrigated with copious amounts of saline. The anterior posterior muscle fascia was approximated over the bone to protect the distal femur. We irrigated a second time. The deep fascial compartments were closed with [id number] Vicryl sutures to close the space. Superficial fascia was closed with [id number] Vicryl sutures, with care taken to make sure there were in the sutures. Nylon mattress sutures were used to approximate the skin edges. Shade were used between the mattress sutures to close the rest of the skin. The skin was cleaned and dried. Xeroform fluffs Kerlix and Mauricio wrap were placed over the stump is final dressings. The patient then was allowed to awaken from anesthesia was taken to recovery in stable condition. SPECIMEN: Left lower leg sent for pathology. DRAINS: None. ESTIMATED BLOOD LOSS: Approximately 25 mL. COMPLICATIONS: None. PLAN: Admit to hospitalist team. PT/OT. OSMIN LIN MD Feb 11, 2020 14:31
[2020-02-11] MEDS ORDERED: METOCLOPRAMIDE INJ 10MG/2ML VIAL (J2765) IV PRN (14:45)
[2020-02-11] MEDS ORDERED: fentaNYL 100 MCG/2 ML INJECTION (J3010) IV PRN (14:45)
[2020-02-11] MEDS ORDERED: PERCOCET 5MG/325MG TAB PO PRN ×3 (14:45)
[2020-02-11] MEDS ORDERED: diazePAM 5 MG TAB PO PRN (14:45)
[2020-02-11] MEDS ORDERED: ONDANSETRON 4MG/2ML VIAL (J2405) IV PRN (14:45)
[2020-02-11] MEDS ORDERED: oxyCODONE 5MG TAB PO PRN (14:45)
[2020-02-11] MEDS ORDERED: MEPERIDINE INJ 25 MG/ML VIAL (J2175) IV PRN (14:45)
[2020-02-11] MEDS ORDERED: LR 1,000 ML IV SCH (14:45)
[2020-02-11 15:47] VITALS: BP 150/75
[2020-02-11 16:00] VITALS: BP 150/74
[2020-02-11] MEDS ORDERED: GLUCOSE 4 GM CHEW TABLET PO PRN (16:00)
[2020-02-11] MEDS ORDERED: DEXTROSE 50% 50 ML SYRINGE IV PRN (16:00)
[2020-02-11] MEDS ORDERED: GLUCAGON FOR INJ 1 MG VIAL (J1610) SC PRN (16:00)
[2020-02-11] MEDS ORDERED: ACETAMINOPHEN TAB 650MG DOSE (2X325MG) PO PRN (16:15)
[2020-02-11] MEDS ORDERED: BENAZEPRIL 5 MG TAB PO ONE (16:30)
[2020-02-11 17:00] VITALS: BP 144/72
[2020-02-11 17:14] LABS: ALBUMIN 3.3 GM/DL (3.2-5.2); ALT/SGPT 27 U/L (12-78); BILIRUBIN,DIRECT 0.1 MG/DL (0.0-0.2); BILIRUBIN,TOTAL 0.4 MG/DL (0.2-1.0); MAGNESIUM LEVEL 2.1 MG/DL (1.8-2.4); TOTAL PROTEIN 8.2 GM/DL (6.4-8.2)
[2020-02-11] MEDS ORDERED: HumaLOG INSULIN (NovoLOG) PER UNIT SC ONE (17:30)
[2020-02-11 18:00] VITALS: BP 139/77
--- NOTE | 2020-02-11 18:32 | HPEPDOC ---
General Date of Admission Feb 11, 2020 at 10:36 Date of Service: Feb 11, 2020 Primary Care Physician: Moshe Swain Other Providers Colorectal Surgeon = Saji Diego Analytical Laboratory Technician = Dr. Suresh Wound care = Dr. Puckett Attending Physician: SUZANNE العراقي MD Chief Complaint The patient is a 74-year-old male admitted with a reason for visit of Atherosci erosis [place] Arteries And Worsening.... History of Present Illness HPI: This 74-year-old male with multiple comorbidities, a few of which are severe peripheral vascular disease in the setting of long-term tobacco abuse and diabetes mellitus with peripheral neuropathy, and history of right lower extremity fem-pop bypass and toes of left foot amputated. He came in for left AKA done today, 02/11/20, by vascular surgery Dr. Lepe, due to a nonhealing wound over the past 1 year. He also has wounds in the right foot for which he follows a Dr. Puckett. Postoperatively, per the request of vascular surgery, he will be admitted for continuous care on the hospitalist service with vascular surgery on board. When examined at bedside in PACU, he denies any complaints and feels well. States his pain is under control, no nausea, vomiting, chest pain, shortness of breath, lightheadedness, dizziness. 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 Admits to decreased sensation in lower extremities Skin: Admits to extremity foot wounds. Denies new rashes PHYSICAL: General exam: A&Ox3, NAD, resting comfortably HEENT: NCAT, EOMI Cardiac: Sinus bradycardic on monitor consistent with auscultation, normal S1 & S2 Respiratory: CTAB, good air exchange, no w/r/r Abdomen: soft, NT, ND, normoactive bowel sounds Extremity: no edema or calf tenderness, moves all limbs. Left lower extremity wrapped postoperatively from left AKA Skin: [place], warm, dry, no visible rash Msk: strength intact throughout, normal tone Neuro: normal speech, no focal deficits. Decreased sensation in the right foot Psych: Normal mood and affect LABORATORY DATA, MICROBIOLOGY: Please see below. ASSESSMENT AND PLAN: This is similar to-year-old male with peripheral vascular disease and peripheral neuropathy with diabetes mellitus and active long-term tobacco abuse presented for left AKA today for nonhealing wound on the left lower extremity. Per request of vascular surgeon Dr. Lepe, patient will be admitted to hospitalist service for further monitoring. 1. PVD - s/p left AKA with Dr. Lepe today 02/10. Pain, anticoag, activity, diet as per Sx - pt counseled in depth regarding smoking cessation and diabetes control - Glucerna with meals to optimize nutrition & healing & diabetic control 2. Post-op Bradycardia - we do not have prior records to compare to - pt asymptomatic and otherwise stable - monitor on tele and limit pain meds as possible - if no improvement in few hrs post-op, will get EKG, echo 3. Hypertension - controlled. Continue Benazepril 4. Long-term tobacco abuse - Per Vas Sx, do NOT give nicotine patch given his PVD 5. Insulin dependent diabetes mellitus - basal & ISS inpt. Fingersticks & hypoglycemic protocol 6. Hyperlipidemia - continue statin 7. Hx of Colon cancer in 2009 - status post resection, chemotherapy, radiation DVT prophylaxis: as per Surgeon DISPOSITION: admit to hospitalist service. Vasc Sx following along for AKA. Home Medications Scheduled Benazepril Hcl (Benazepril HCl) 10 Mg Tab, 5 MG PO DAILY, (Reported) Empagliflozin (Jardiance) 25 Mg Tab, 25 MG PO DAILY, (Reported) Glipizide (Glipizide ER) 2.5 Mg Tab.er.24, 2.5 MG PO QAM, (Reported) Glipizide (Glipizide) 5 Mg Tablet, 5 MG PO QPM, (Reported) Insulin Glargine (Lantus) 1 Units/0.01 Ml Susp, 60 UNITS SC QHS, (Reported) Simvastatin (Simvastatin) 20 Mg Tab, 20 MG PO DAILY, (Reported) Sitagliptin Phosphate (Januvia) 100 Mg Tab, 100 MG PO DAILY, (Reported) [prebiotic] , 2 TSP PO DAILY, (Reported) Allergies Coded Allergies: clindamycin (Verified Adverse Reaction, Mild, UPSET STOMACH, VOMITING, 02/11/20) Social History * Smoker: current smoker A-FIB/CHADSVASC A-FIB History Current/History of A-Fib/PAF?: No Vital Signs Vital Signs Date Time Temp Pulse Resp B/P (MAP) Pulse Ox O2 Delivery O2 Flow Rate FiO2 02/11/20 17:47 150/74 02/11/20 17:00 98.2 51 16 99 Room Air Laboratory Data Labs 24H Laboratory Tests 2 02/11/20 10:59: Nucleated Red Blood Cells % (auto) 0.0, Prothrombin Time 13.7, Prothromb Time International Ratio 1.07, Activated Partial Thromboplast Time 29.3, Anion Gap 6L, Glomerular Filtration Rate > 60.0, Calcium Level 9.6, Magnesium Level 2.1, Total Bilirubin 0.4, Direct Bilirubin 0.1, Aspartate Amino Transf (AST/SGOT) 17, Alanine Aminotransferase (ALT/SGPT) 27, Alkaline Phosphatase 167H, Total Protein 8.2, Albumin 3.3, Albumin/Globulin Ratio 0.67L 02/11/20 14:35: Bedside Glucose (Misc Panel) 164H 02/11/20 16:33: Bedside Glucose (Misc Panel) 135H CBC/BMP Laboratory Tests 02/11/20 10:59 Plan / VTE VTE Prophylaxis Ordered?: No VTE Exclusion Mechanical Proph: Other (post-op, as per Surgery) GME ATTESTATION GME ATTESTATION My faculty preceptor for this patient encounter was physically present during the encounter and was fully available. All aspects of the patient interview, examination, medical decision making process, and medical care plan development were reviewed and approved by the faculty preceptor. The faculty preceptor is aware and concurs with the plan as stated in the body of this note and will attest to such by his/her cosignature. ATTENDING NOTE I, Suzanne العراقي, have independently examined this patient and performed my own physical exam, as well as reviewed the documentation and edited where necessary. I have discussed in detail with the resident / student the findings and plan of treatment as documented by the resident / student and edited their note. I agree with their findings and treatment plan and have edited their documentation. I will continue to follow the patient during this hospital stay. GARRY WALLER DO Feb 11, 2020 18:32 SUZANNE العراقي MD Feb 12, 2020 10:56
[2020-02-11] MEDS ORDERED: SIMVASTATIN 20 MG TAB PO SCH (21:00)
[2020-02-11] MEDS ORDERED: LEVEMIR (INSULIN DETEMIR) 1 UNITS/0.01ML SC SCH (21:00)
[2020-02-11] MEDS ORDERED: HumaLOG INSULIN (NovoLOG) PER UNIT SC SCH (21:00)
[2020-02-11 22:00] VITALS: BP 138/64
[2020-02-12 02:00] VITALS: BP 111/54
[2020-02-12 06:00] VITALS: BP 129/65
[2020-02-12 06:09] LABS: HEMATOCRIT 35.2 % (42.0-52.0); MEAN CORPUSCULAR HEMOGLOBIN 26.1 pg (27.0-33.0); MEAN CORPUSCULAR HGB CONC 30.7 g/dl (32.0-36.5); PLATELET COUNT, AUTOMATED 239 10^3/uL (150-450); RED BLOOD COUNT 4.14 10^6/uL (4.30-6.10)
[2020-02-12 06:15] LABS: HEMOGLOBIN 10.8 g/dl (13.5-17.5)
[2020-02-12 06:31] LABS: BLOOD UREA NITROGEN 23 MG/DL (7-18); CALCIUM LEVEL 8.2 MG/DL (8.8-10.2); CARBON DIOXIDE LEVEL 27 MEQ/L (21-32); CHLORIDE LEVEL 105 MEQ/L (98-107); CREATININE FOR GFR 0.78 MG/DL (0.70-1.30); GLOMERULAR FILTRATION RATE > 60.0 (>42); GLUCOSE, FASTING 254 MG/DL (70-100); SODIUM LEVEL 138 MEQ/L (136-145)
[2020-02-12 08:46] VITALS: BP 129/65
[2020-02-12] MEDS: HumaLOG INSULIN (NovoLOG) PER UNIT SC SCH ×2 (08:47→12:37)
[2020-02-12] MEDS ORDERED: BENAZEPRIL 5 MG TAB PO SCH (09:00)
--- NOTE | 2020-02-12 09:46 | IPNPDOC ---
Text Note Date of Service The patient was seen on 02/12/20. NOTE Vascular Surgery. Dr. Lin HPI: 74 year old M with a past medical history significant for profound bilateral lower extremity arterial disease with failed femoropopliteal bypasses and interventions in the lower extremities, status post multiple partial amputations of the left foot with nonhealing wounds, plantar wound of the right foot which has been stable. The pt had continued worsening of the left foot wound now S/p left above-knee amputation 02/11/[address] Lin. Pt states he is eating and drinking. States pain is controlled. 74 yo M, sitting up in bed. No acute distress. Moist mucous membranes. left AKA with dressing removed. Small amount of oozing is noted from the incision site. [place] and sutures are intact. No surrounding erythema. The i ncision is thoroughly cleaned. Incision is dressed with Xeroform, fluffs, dry gauze, Kerlix and Mauricio wrap. Alert and oriented x 3. No focal deficits appreciated. A&P: 1. Nonhealing wound left lower extremity POD 1 left above-knee amputation as per Dr. Lin 02/11/20. Continue to closely monitor healing, continue with daily dressing changes. Continue with pain control. PT/OT pending. Possibly consider ARU if the patient is agreeable. 2. Profound bilateral lower extremity arterial disease with failed femoropopliteal bypasses and interventions in the lower extremities. Tentative plan is to eventually reschedule right redo femoral to below-knee popliteal bypass with cadaver vein. The patient remains on aspirin 81 mg daily/statin. VS,Fishbone, I+O VS, Fishbone, I+O Laboratory Tests 02/11/20 10:59 02/12/20 05:25 Vital Signs Date Time Temp Pulse Resp B/P (MAP) Pulse Ox O2 Delivery O2 Flow Rate FiO2 02/12/20 08:46 129/65 02/12/20 08:01 18 Room Air 02/12/20 06:00 98.0 61 98 I&O- Last 24 Hours up to 6 AM 02/12/20 06:00 Intake Total 2755 ml Output Total 400 ml Balance 2355 ml Zina Barone Feb 12, 2020 09:46
[2020-02-12 10:00] VITALS: BP 123/61
[2020-02-12 11:55] LABS: HEMATOCRIT 38.1 % (42.0-52.0); HEMOGLOBIN 11.8 g/dl (13.5-17.5)
--- NOTE | 2020-02-12 11:56 | IPNPDOC ---
Text Note Date of Service The patient was seen on 02/12/20. NOTE Subjective: Pt examined at bedside. Feels well. No f/c/cp/sob. Doing well & stable. PHYSICAL: General exam: A&Ox3, NAD, sitting up in chair comfortably HEENT: NCAT, EOMI Cardiac: RRR, normal S1 & S2 Respiratory: CTAB, good air exchange, no w/r/r Abdomen: soft, NT, ND, normoactive bowel sounds Extremity: no edema or calf tenderness, moves all limbs. Left lower extremity wrapped from left AKA Msk: strength intact throughout, normal tone Neuro: no focal deficit or acute changes Psych: Normal mood and affect ASSESSMENT AND PLAN: This is 74-year-old male with peripheral vascular disease and peripheral neuropathy with diabetes mellitus and active long-term tobacco abuse presented for left AKA on 02/10 for nonhealing wound on the left lower extremity. Per request of vascular surgeon Dr. Lepe, patient was admitted to hospitalist service for further monitoring. 1. PVD - s/p left AKA with Dr. Lepe 02/10. Pain, anticoag, activity, diet as per Sx - pt counseled in depth regarding smoking cessation and diabetes control - Glucerna with meals to optimize nutrition & healing & diabetic control - work with PT/OT 2. Post-op Bradycardia - resolved and pt asymptomatic - monitor on tele 3. Hypertension - controlled. Continue Benazepril 4. Long-term tobacco abuse - Per Vasc Sx, do NOT give nicotine patch given his PVD 5. Insulin dependent diabetes mellitus - basal & ISS inpt. Fingersticks & hypoglycemic protocol 6. Hyperlipidemia - continue statin 7. Hx of Colon cancer in 2009 - status post resection, chemotherapy, radiation DVT prophylaxis: as per Surgeon DISPOSITION: awaiting Vasc Sx clearance. D/c home vs ARU vs [facility] in 24-48hr. VS,Fishbone, I+O VS, Fishbone, I+O Laboratory Tests 02/12/20 05:25 Vital Signs Date Time Temp Pulse Resp B/P (MAP) Pulse Ox O2 Delivery O2 Flow Rate FiO2 02/12/20 10:00 98.5 65 18 123/61 (81) 98 Room Air I&O- Last 24 Hours up to 6 AM 02/12/20 06:00 Intake Total 2755 ml Output Total 400 ml Balance 2355 ml GME ATTESTATION GME ATTESTATION My faculty preceptor for this patient encounter was physically present during the encounter and was fully available. All aspects of the patient interview, examination, medical decision making process, and medical care plan development were reviewed and approved by the faculty preceptor. The faculty preceptor is aware and concurs with the plan as stated in the body of this note and will attest to such by his/her cosignature. ATTENDING NOTE I, Suzanne Cochran, have independently examined this patient and performed my own physical exam, as well as reviewed the documentation and edited where necessary. I have discussed in detail with the resident / student the findings and plan of treatment as documented by the resident / student and edited their note. I agree with their findings and treatment plan and have edited their documentation. I will continue to follow the patient during this hospital stay. GARRY WALLER DO Feb 12, 2020 11:56 SUZANNE COCHRAN MD Feb 12, 2020 13:17
[2020-02-12] MEDS ORDERED: INSUDET SC (12:11)
[2020-02-12] MEDS ORDERED: INSUHUMDS SC ×2 (12:11)
[2020-02-12] MEDS ORDERED: PERCOCET PO (12:11)
[2020-02-12] MEDS ORDERED: DIAZ5TAB PO (12:11)
[2020-02-12 14:00] VITALS: BP 134/58
--- NOTE | 2020-02-12 18:58 | DS.PDOC ---
Discharge Summary General Date of Admission Feb 11, 2020 at 10:36 Date of Discharge 02/12/20 Attending Physician: SUZANNE COCHRAN MD Specialist/Consultants Involve: OSMIN GOTTLIEB MD Discharge Summary PROCEDURES PERFORMED DURING STAY: Left AKA. DISCHARGE DIAGNOSES: PVD Post-op Bradycardia Hypertension Long-term tobacco abuse Insulin dependent diabetes mellitus Hyperlipidemia Hx of Colon cancer in 2009 HISTORY OF PRESENT ILLNESS: This is 74-year-old male with peripheral vascular disease and peripheral neuropathy with diabetes mellitus and active long-term tobacco abuse presented for left AKA on 02/10 for nonhealing wound on the left lower extremity. Patient was admitted to hospitalist service for further monitoring and rehabilitation. HOSPITAL COURSE: Pt was admitted, monitored overnight, stable, worked with PT / OT and agreed to continue this at acute rehab. DISCHARGE MEDICATIONS: Please see below. ALLERGIES: Please see below. PHYSICAL EXAMINATION ON DISCHARGE: VITAL SIGNS: Please see below. General exam: A&Ox3, NAD, sitting up in chair comfortably HEENT: NCAT, EOMI Cardiac: RRR, normal S1 & S2 Respiratory: CTAB, good air exchange, no w/r/r Abdomen: soft, NT, ND, normoactive bowel sounds Extremity: no edema or calf tenderness, moves all limbs. Left lower extremity wrapped from left AKA Msk: strength intact throughout, normal tone Neuro: no focal deficit or acute changes Psych: Normal mood and affect LABORATORY DATA: Please see below. IMAGING: none PROGNOSIS: fair ACTIVITY: As tolerated. DIET: 2g sodium DISPOSITION: home DISCHARGE INSTRUCTIONS: 1. Follow-up with PCP within a week 2. Return to ER for emergency DISCHARGE CONDITION: Stable. TIME SPENT ON DISCHARGE: Greater than 35 minutes. Vital Signs/I&Os Vital Signs Date Time Temp Pulse Resp B/P (MAP) Pulse Ox O2 Delivery O2 Flow Rate FiO2 02/12/20 14:00 98.5 64 17 134/58 (83) 97 Room Air I&O- Last 24 Hours up to 6 AM 02/12/20 06:00 Intake Total 2755 ml Output Total 400 ml Balance 2355 ml Laboratory Data Labs 24H Laboratory Tests 2 02/11/20 21:00: Bedside Glucose (Misc Panel) 409H 02/12/20 05:25: Nucleated Red Blood Cells % (auto) 0.0, Anion Gap 6L, Glomerular Filtration Rate > 60.0, Calcium Level 8.2L 02/12/20 11:41: Bedside Glucose (Misc Panel) 293H 02/12/20 13:07: Methicillin-Resist S.aureus DNA PCR NOT DETECTED CBC/BMP Laboratory Tests 02/12/20 05:25 02/12/20 11:46 FSBS Laboratory Tests Test 02/11/20 21:00 02/12/20 11:41 Range/Units Bedside Glucose (Misc Panel) 409 293 83-110 MG/DL Discharge Medications Scheduled Benazepril Hcl (Benazepril HCl) 10 Mg Tab, 5 MG PO DAILY, (Reported) Insulin Detemir (Levemir) 100 Unit/1 Ml Vial, 45 UNITS SC QHS Insulin Human Lispro (Humalog) 100 Unit/1 Ml Vial, 0 UNITS SC AC Insulin Human Lispro (Humalog) 100 Unit/1 Ml Vial, 0 UNITS SC QHS Simvastatin (Simvastatin) 20 Mg Tab, 20 MG PO DAILY, (Reported) [prebiotic] , 2 TSP PO DAILY, (Reported) Scheduled PRN Diazepam (Diazepam) 5 Mg Tablet, 5 MG PO Q6HP PRN for MUSCLE SPASM Oxycodone/Acetaminophen (Oxycodone-Acetaminophen 5-325) 1 Each Tablet, 1-2 TAB PO Q4HP PRN for MODERATE/SEVERE PAIN (PS 5-10) Allergies Coded Allergies: No Known Drug Allergies (Verified Allergy, Unknown, 02/12/20) clindamycin (Verified Adverse Reaction, Mild, UPSET STOMACH, VOMITING, 02/11/20) GME ATTESTATION GME ATTESTATION My faculty preceptor for this patient encounter was physically present during the encounter and was fully available. All aspects of the patient interview, examination, medical decision making process, and medical care plan development were reviewed and approved by the faculty preceptor. The faculty preceptor is aware and concurs with the plan as stated in the body of this note and will attest to such by his/her cosignature. ATTENDING NOTE I, Suzanne Cochran, have independently examined this patient and performed my own physical exam, as well as reviewed the documentation and edited where necessary. I have discussed in detail with the resident / student the findings and plan of treatment as documented by the resident / student and edited their note. I agree with their findings and treatment plan and have edited their d ocumentation. I will continue to follow the patient during this hospital stay. Time spend on discharge: 35 minutes GARRY WALLER DO Feb 12, 2020 18:58 SUZANNE COCHRAN MD Feb 12, 2020 22:09
[2020-02-12] MEDS ORDERED: LEVEMIR (INSULIN DETEMIR) 1 UNITS/0.01ML SC SCH (21:00)
== END 2020-02-12 15:52 | disposition home or self-care (01) | DRG 241 ==
LOC: M OR 10:36 → M MSPAV 15:32
PROVIDERS: ADMIT Surgery Vascular Surgery; ATTEND Internal Medicine
PROC: 0Y6D0Z1 Detachment at Left Upper Leg, High, Open Approach (ICD-10-PCS; principal; 2020-02-11 12:00)
DX: E11.51 Type 2 diabetes mellitus with diabetic peripheral angiopathy without gangrene (principal); I10 Essential (primary) hypertension; F17.200 Nicotine dependence, unspecified, uncomplicated; E78.5 Hyperlipidemia, unspecified; Z85.038 Personal history of other malignant neoplasm of large intestine; Z79.4 Long term (current) use of insulin; Z79.899 Other long term (current) drug therapy; Z88.1 Allergy status to other antibiotic agents; R00.1 Bradycardia, unspecified

== ENCOUNTER 2020-02-12 12:53 | Inpatient (IN) | payer MEDICARE, OTHER ==
[~2020-02-12] VITALS: Ht 177.8 cm; Wt 73.0 kg
[~2020-02-12 12:53] MED LIST changes: +DIAZ5TAB PO; +INSUDET SC; +INSUHUMDS SC; -LR 1,000 ML IV ONE; +PERCOCET PO; -ceFAZolin SOD 2 GM in IV 1 EA IV ONE
[2020-02-12] MEDS ORDERED: GLUCOSE 4 GM CHEW TABLET PO PRN (15:30)
[2020-02-12] MEDS ORDERED: BISACODYL 10 MG SUPP PR PRN (15:30)
[2020-02-12] MEDS ORDERED: GLUCAGON FOR INJ 1 MG VIAL (J1610) SC PRN (15:30)
[2020-02-12] MEDS ORDERED: diazePAM 5 MG TAB PO PRN (15:30)
[2020-02-12] MEDS ORDERED: oxyCODONE 5MG TAB PO PRN (15:30)
[2020-02-12] MEDS ORDERED: DEXTROSE 50% 50 ML SYRINGE IV PRN (15:30)
[2020-02-12 15:55] VITALS: BP 144/65
[2020-02-12] MEDS: REMEDY PHYTOPLEX Z-GUARD PASTE 113GM TUBE (FROM STOREROOM PRODUCT) TOP SCH ×2 (16:00→21:00)
[2020-02-12] MEDS: LACTOBACILLUS ACIDOPHILUS CAP (BACID) PO SCH ×2 (17:18→21:00)
[2020-02-12] MEDS: ACETAMINOPHEN 500 MG TAB PO SCH ×2 (17:19→21:00)
[2020-02-12] MEDS ORDERED: HumaLOG INSULIN (NovoLOG) PER UNIT SC SCH (17:30)
[2020-02-12 20:40] VITALS: BP 120/40
[2020-02-12] MEDS: DOCUSATE SODIUM 100 MG CAP PO SCH (21:00)
[2020-02-12] MEDS ORDERED: SENNA 8.6 MG TAB (SENOKOT) PO SCH (21:00)
[2020-02-12] MEDS: LEVEMIR (INSULIN DETEMIR) 1 UNITS/0.01ML SC SCH (21:49)
[2020-02-12] MEDS: HumaLOG INSULIN (NovoLOG) PER UNIT SC SCH (21:50)
[2020-02-12] MEDS: HEPARIN SOD (PORCINE) 5000 UNITS/ML VIAL (J1644 PER 1000UNITS) SC SCH (21:50)
[2020-02-13 06:06] VITALS: BP 135/71
[2020-02-13 07:28] LABS: BASO % 0.3 % (0.0-1.0); EOS # 0.2 10^3/uL (0.0-0.5); EOS % 2.1 % (0.0-3.0); HEMATOCRIT 37.2 % (42.0-52.0); HEMOGLOBIN 11.4 g/dl (13.5-17.5); LYMPH % 12.8 % (24.0-44.0); MEAN CORPUSCULAR HEMOGLOBIN 26.1 pg (27.0-33.0); MEAN CORPUSCULAR HGB CONC 30.6 g/dl (32.0-36.5); MEAN CORPUSCULAR VOLUME 85.1 fl (80.0-96.0); MONO # 0.8 10^3/uL (0.0-0.8); MONO % 10.7 % (0.0-5.0); NEUTROPHILS # 5.7 10^3/uL (1.5-8.5); NEUTROPHILS % 73.5 % (36.0-66.0); PLATELET COUNT, AUTOMATED 232 10^3/uL (150-450); RED BLOOD COUNT 4.37 10^6/uL (4.30-6.10); WHITE BLOOD COUNT 7.8 10^3/uL (4.0-10.0)
[2020-02-13 07:58] LABS: ALBUMIN 2.4 GM/DL (3.2-5.2); ALT/SGPT 19 U/L (12-78); BILIRUBIN,TOTAL 0.7 MG/DL (0.2-1.0); BLOOD UREA NITROGEN 17 MG/DL (7-18); CALCIUM LEVEL 8.2 MG/DL (8.8-10.2); CARBON DIOXIDE LEVEL 27 MEQ/L (21-32); CHLORIDE LEVEL 108 MEQ/L (98-107); CREATININE FOR GFR 0.65 MG/DL (0.70-1.30); GLOMERULAR FILTRATION RATE > 60.0 (>42); GLUCOSE, FASTING 137 MG/DL (70-100); POTASSIUM SERUM 4.3 MEQ/L (3.5-5.1); SODIUM LEVEL 140 MEQ/L (136-145); TOTAL PROTEIN 6.4 GM/DL (6.4-8.2)
[2020-02-13] MEDS ORDERED: PERCOCET 5MG/325MG TAB PO PRN ×2 (08:00→11:45)
[2020-02-13] MEDS: LEVEMIR (INSULIN DETEMIR) 1 UNITS/0.01ML SC SCH ×2 (08:21→20:55)
[2020-02-13] MEDS: LACTOBACILLUS ACIDOPHILUS CAP (BACID) PO SCH (08:22)
[2020-02-13] MEDS: PANTOPRAZOLE 40MG TAB (PROTONIX) PO SCH (08:22)
[2020-02-13] MEDS: SIMVASTATIN 20 MG TAB PO SCH (08:22)
[2020-02-13] MEDS: HumaLOG INSULIN (NovoLOG) PER UNIT SC SCH ×4 (08:22→20:55)
[2020-02-13] MEDS: DOCUSATE SODIUM 100 MG CAP PO SCH ×2 (08:27→20:53)
[2020-02-13] MEDS: BENAZEPRIL 5 MG TAB PO SCH (08:27)
[2020-02-13] MEDS: HEPARIN SOD (PORCINE) 5000 UNITS/ML VIAL (J1644 PER 1000UNITS) SC SCH ×2 (08:27→20:54)
[2020-02-13] MEDS: PERCOCET 5MG/325MG TAB PO PRN ×2 (08:32→20:54)
[2020-02-13] MEDS: REMEDY PHYTOPLEX Z-GUARD PASTE 113GM TUBE (FROM STOREROOM PRODUCT) TOP SCH ×3 (08:41→20:56)
--- NOTE | 2020-02-13 08:50 | IPNPDOC ---
Text Note Date of Service The patient was seen on 02/13/20. NOTE Vascular Surgery. Dr. Lin HPI: 74 year old M with a past medical history significant for profound bilateral lower extremity arterial disease with failed femoropopliteal bypasses and interventions in the lower extremities, status post multiple partial amputations of the left foot with nonhealing wounds, plantar wound of the right foot which has been stable. The pt had continued worsening of the left foot wound now S/p left above-knee amputation 02/11/[address] Lin. Pt states he is eating and drinking. States pain is controlled. 74 yo M, sitting up in bed. No acute distress. Moist mucous membranes. left AKA with dressing removed. [place] and sutures are intact. No surrounding erythema. The incision is thoroughly cleaned. Incision is dressed with Xeroform, fluffs, dry gauze, Kerlix and Mauricio wrap. Alert and oriented x 3. No focal deficits appreciated. A&P: 1. Nonhealing wound left lower extremity POD 2 left above-knee amputation as per Dr. Lin 02/11/20. Continue to closely monitor healing, continue with daily dressing changes. Continue with pain control. PT/OT as per ARU. 2. Profound bilateral lower extremity arterial disease with failed femoropopliteal bypasses and interventions in the lower extremities. Tentative plan is to eventually reschedule right redo femoral to below-knee popliteal bypass with cadaver vein. The patient remains on aspirin 81 mg daily/statin. VS,Fishbone, I+O VS, Fishbone, I+O Laboratory Tests 02/13/20 06:51 Vital Signs Date Time Temp Pulse Resp B/P (MAP) Pulse Ox O2 Delivery O2 Flow Rate FiO2 02/13/20 08:32 18 Room Air 02/13/20 08:27 150/78 02/13/20 06:06 98.5 62 97 I&O- Last 24 Hours up to 6 AM 02/13/20 06:00 Intake Total 0 ml Output Total 950 ml Balance -950 ml Zina Barone Feb 13, 2020 08:50
--- NOTE | 2020-02-13 09:59 | HPEPDOC ---
Motor Pool Driver Note DATE OF ADMISSION: 02-12-20 DATE OF SERVICE: 02-13-20 TIME OF ADMISSION: Please refer to physician's admission order. SOURCE OF ADMISSION INFORMATION: [facility] record and patient CHIEF COMPLAINT: left AKA HISTORY OF PRESENT ILLNESS: 74 M pmh DM, HLD, PAD, HTN, Colon cancer presented to [facility] from the vascular clinic on 02-11-20 for left AKA in the setting of numerous bypasses, partial amputations, and persistent wounds. He was started on pre-op IV antibiotics and underwent a left AKA that same day without immediate post-op complications. He did develop post-op anemia and had elevated blood glucose levels. He was seen by therapy following surgery and had new impairments in ambulation and mobility well below her baseline. He was deemed medically appropriate for discharge to ARU on 02-12-20 for further rehab and medical oversight. REVIEW OF SYSTEMS: The following is a completed review of systems and has been reviewed. Review of systems otherwise unremarkable. PAIN: Patient self reports mild left residual limb pain EYES: No recent vision changes EARS, NOSE, & THROAT: No throat pain, or dysphagia, or rhinorrhea CARDIOVASCULAR: Denies chest pain or palpitations PULMONARY: Denies shortness of breath GASTROINTESTINAL: Denies constipation/diarrhea GENITOURINARY: denies dysuria MUSCULOSKELETAL: LLE AKA NEUROLOGICAL:+ peripheral neuropathy HEMATOLOGICAL: denies easy bruising SKIN: left AKA incision and right plantar foot ulcer PSYCHIATRIC: Unremarkable All other review of systems found to be negative. PAST MEDICAL HISTORY: as per HPI PAST SURGICAL HISTORY: Left foot multiple toe amputation, colon resection, bilat LE arteriogram, right LE bypass ALLERGIES: Please see below. MEDICATIONS: Please see below. FAMILY HISTORY: DM, Cancer SOCIAL HISTORY: +smoker 4 cigarettes every few weeks with friends, no etoh/illicit drugs DIET: consistent carb PHYSICAL EXAMINATION: VITAL SIGNS: Please see below. GENERAL: Pleasant and cooperative. No acute distress. HEENT: PERRL. Extraocular movements intact. Clear conjunctiva CARDIOVASCULAR: Regular rate and rhythm. No murmurs, rubs, or gallops LUNGS: Clear to auscultation bilaterally. No wheezes. No rhonchi ABDOMEN: Soft, nontender, nondistended. Positive bowel sounds. Normal active bowel sounds NEUROLOGICAL: Alert and oriented times three. Cranial nerves II through XII grossly intact. Sensation grossly intact decreased to light touch tight LE in stocking pattern EXTREMITIES: 5\5 strength bilateral upper extremities. 5\5 strength right lower extremity.5/5 strength in left hip flexion. SKIN: left AKa incision c/d/i with minimal erythema, no induration or drainage -righty plantar ulcer hyper keratotic with dark center LABORATORY DATA: Please see below. IMAGING:Imaging documentation personally reviewed by record FUNCTIONAL STATUS: Premorbid: Independent with all activities of daily life as well as mobility from wheelchair level, walked short distances with crutches On Admission: Contact guard to min assist for ambulation, functional transfers GOALS: Ambulating short distances with crutches, Mod-I with dressing, bathing, toileting, functional transfers, medical optimization ASSESSMENT:74-year-old M with past medical history of PAD who presents status post left AKA PLAN: 1. Rehab- PT/OT advance gait and ADLs, strengthen/stretch/maintain ROM all 4 limbs, left residual limb desensitization, energy conservation 2. neuro: no pertinent hx 3. Cardiac: HTN c/u Benazapril, medicine consulted to assist in overall management -HLD c/u statin -will start back home ASA 4. Resp: encourage incentive spirometry, monitor for infection 5. Endo: hx of DM with poorly controlled glucose control, c/u Levemir qhs, will add daily dosing, c/u ISS, monitor and manage 6. Vasc: hx of multiple bypasses and arteriograms for poor wound healing, now s/p left AKA, vascular consulted- c/u daily dressing change and monitor for infection 7. DVT ppx: heparin 8. GI ppx: Protonix 9. Pain: Percocet prn, patient reporting he is not taking valium 10. Disop: tbd POST ADMISSION PHYSICIAN EVALUATION: Medical and functional status: Description of medical status, medical assessment: As above. Rehabilitation diagnosis and current and prior cold morbid medical conditions as above. Risk of complications and plans to mitigate them as above. Description of functional status current status is as above. Prior status as above. Status compared to preadmission: There are no clinically significant differences between the patient's current status and the information described on the preadmission screening document. Treatment plan anticipated: Treatment plan is as described above. Required disciplines including physical therapy, occupational therapy, others as noted above. Intensity of services: 3 hours a day, 6 days a week. Special considerations: There are no specific special or safety considerations that would likely preclude immediate implementation of an intensive rehabilitation program or subsequently influence the plan of care. ATTESTATION: Considering all the information above, it is my best judgment that this patient requires intensive rehabilitation therapy as described above and an inpatient hospital environment due to the complexity of nursing, medical, and rehabilitation needs required by the patient. Furthermore, this patient can reasonably be expected to participate in an benefit from an inpatient rehabilitation stay with an interdisciplinary team approach to the delivery of rehabilitation care under the direction and supervision of rehabilitation physician PROGNOSIS: Excellent ESTIMATED LENGTH OF STAY:7-8 days. PROJECTED DISCHARGE DESTINATION: Home with family support and any durable medical equipment required to increase functional safety and mobility. TIME SPENT COUNSELING AND COORDINATING INITIAL CARE: Greater than 70 minutes. Vital Signs Vital Sign - Last 24 Hours 02/12/20 02/12/20 02/12/20 02/12/20 15:55 17:20 17:50 20:40 Temp 97.4 99.1 Pulse 73 80 Resp 19 16 14 18 B/P (MAP) 144/65 (91) 120/40 (66) Pulse Ox 98 97 O2 Delivery Room Air Room Air 02/13/20 02/13/20 02/13/20 06:06 08:27 08:32 Temp 98.5 Pulse 62 Resp 18 18 B/P (MAP) 135/71 (92) 150/78 Pulse Ox 97 O2 Delivery Room Air Room Air Laboratory Data CBC/BMP Laboratory Tests 02/13/20 06:51 Labs 24H Laboratory Tests 2 02/12/20 16:34: Bedside Glucose (Misc Panel) 365H 02/12/20 19:56: Bedside Glucose (Misc Panel) 359H 02/13/20 06:23: Bedside Glucose (Misc Panel) 162H 02/13/20 06:51: Immature Granulocyte % (Auto) 0.6, Neutrophils (%) (Auto) 73.5H, Lymphocytes (%) (Auto) 12.8L, Monocytes (%) (Auto) 10.7H, Eosinophils (%) (Auto) 2.1, Basophils (%) (Auto) 0.3, Neutrophils # (Auto) 5.7, Lymphocytes # (Auto) 1.0L, Monocytes # (Auto) 0.8, Eosinophils # (Auto) 0.2, Basophils # (Auto) 0.0, Nucleated Red Blood Cells % (auto) 0.0, Anion Gap 5L, Glomerular Filtration Rate > 60.0, Calcium Level 8.2L, Total Bilirubin 0.7#, Aspartate Amino Transf (AST/SGOT) 15, Alanine Aminotransferase (ALT/SGPT) 19, Alkaline Phosphatase 122H, Total Protein 6.4#, Albumin 2.4#L, Albumin/Globulin Ratio 0.60L FSBS Laboratory Tests Test 02/12/20 16:34 02/12/20 19:56 02/13/20 06:23 Range/Units Bedside Glucose (Misc Panel) 365 359 162 83-110 MG/DL Home Medications Scheduled Benazepril Hcl (Benazepril HCl) 10 Mg Tab, 5 MG PO DAILY, (Reported) Insulin Detemir (Levemir) 100 Unit/1 Ml Vial, 45 UNITS SC QHS Insulin Human Lispro (Humalog) 100 Unit/1 Ml Vial, 0 UNITS SC AC Insulin Human Lispro (Humalog) 100 Unit/1 Ml Vial, 0 UNITS SC QHS Simvastatin (Simvastatin) 20 Mg Tab, 20 MG PO DAILY, (Reported) [prebiotic] , 2 TSP PO DAILY, (Reported) Scheduled PRN Diazepam (Diazepam) 5 Mg Tablet, 5 MG PO Q6HP PRN for MUSCLE SPASM Oxycodone/Acetaminophen (Oxycodone-Acetaminophen 5-325) 1 Each Tablet, 1-2 TAB PO Q4HP PRN for MODERATE/SEVERE PAIN (PS 5-10) Allergies Coded Allergies: No Known Drug Allergies (Verified Allergy, Unknown, 02/12/20) clindamycin (Verified Adverse Reaction, Mild, UPSET STOMACH, VOMITING, 02/11/20) A-FIB/CHADSVASC A-FIB History Current/History of A-Fib/PAF?: No CALOS REBOLLAR MD Feb 13, 2020 09:59
[2020-02-13] MEDS: ASPIRIN 81 MG ENTERIC TAB PO SCH (12:28)
[2020-02-13 14:00] VITALS: BP 132/74
--- NOTE | 2020-02-13 15:48 | IPNPDOC ---
Text Note Date of Service The patient was seen on 02/13/20. NOTE HOSPITALIST NOTE S: Pt examined at bedside. Is feeling well wotking with PT. Complains of constipation. No cp/sob/n/v/abd pain. PE: VITAL SIGNS: Please see below. General exam: A&Ox3, NAD, laying in bed comfy HEENT: NCAT, EOMI, anicteric sclera Cardiac: RRR, normal S1 & S2 Respiratory: CTAB, good air exchange, no w/r/r Abdomen: soft, NT, mildly distended, normoactive bowel sounds. Benign Extremity: no edema or calf tenderness, moves all limbs. Left lower extremity wrapped from left AKA, stump soft and nontender Msk: strength intact throughout, normal tone Neuro: no focal deficit or acute changes Psych: Normal mood and affect A/P: This is 74-year-old male with peripheral vascular disease and peripheral neuropathy with diabetes mellitus and active long-term tobacco abuse presented for left AKA on 02/10 for nonhealing wound on the left lower extremity. Hospitalist is following along for medical management. 1. PVD s/p left AKA s/p left AKA with Dr. Lepe 02/10 - H&H stable, no bleed - Continue PT and f/u with surgeon. - Pain as per PMR - Ensure with meals to aid nutrition 2. Constipation - encourage ambulation and hydration - bowel meds added, monitor 3. Hypertension: controlled on Benazepril, continue 4. Long-term tobacco abuse: counseled on cessation; avoid nicotine patch per Vas Sx 4. Insulin dependent diabetes mellitus: basal & ISS inpt. Fingersticks & hypoglycemic protocol 5. Hyperlipidemia: continue statin 6. Hx of Colon cancer in 2009: status post resection, chemotherapy, radiation 7. DVT prophylaxis - as per ARU VS,Fishbone, I+O VS, Fishbone, I+O Laboratory Tests 02/13/20 06:51 Vital Signs Date Time Temp Pulse Resp B/P (MAP) Pulse Ox O2 Delivery O2 Flow Rate FiO2 02/13/20 09:02 18 Room Air 02/13/20 08:27 150/78 02/13/20 06:06 98.5 62 97 I&O- Last 24 Hours up to 6 AM 02/13/20 06:00 Intake Total 0 ml Output Total 950 ml Balance -950 ml GME ATTESTATION GME ATTESTATION My faculty preceptor for this patient encounter was physically present during the encounter and was fully available. All aspects of the patient interview, examination, medical decision making process, and medical care plan development were reviewed and approved by the faculty preceptor. The faculty preceptor is aware and concurs with the plan as stated in the body of this note and will attest to such by his/her cosignature. ATTENDING NOTE I, Suzanne Cochran, have independently examined this patient and performed my own physical exam, as well as reviewed the documentation and edited where necessary. I have discussed in detail with the resident / student the findings and plan of treatment as documented by the resident / student and edited their note. I agree with their findings and treatment plan and have edited their documentation. I w ill continue to follow the patient during this hospital stay. GARRY WALLER DO Feb 13, 2020 15:48 SUZANNE COCHRAN MD Feb 13, 2020 17:25
[2020-02-13 20:28] VITALS: BP 153/71
[2020-02-14 06:00] VITALS: BP 130/65
[2020-02-14] MEDS: REMEDY PHYTOPLEX Z-GUARD PASTE 113GM TUBE (FROM STOREROOM PRODUCT) TOP SCH ×3 (09:00→20:48)
[2020-02-14] MEDS: DOCUSATE SODIUM 100 MG CAP PO SCH ×2 (09:00→20:47)
[2020-02-14] MEDS: SENOKOT S TAB PO SCH (09:00)
[2020-02-14] MEDS: HEPARIN SOD (PORCINE) 5000 UNITS/ML VIAL (J1644 PER 1000UNITS) SC SCH ×2 (09:07→20:45)
[2020-02-14] MEDS: LEVEMIR (INSULIN DETEMIR) 1 UNITS/0.01ML SC SCH ×2 (09:07→20:45)
[2020-02-14] MEDS: HumaLOG INSULIN (NovoLOG) PER UNIT SC SCH ×4 (09:08→20:46)
[2020-02-14] MEDS: SIMVASTATIN 20 MG TAB PO SCH (09:08)
[2020-02-14] MEDS: PANTOPRAZOLE 40MG TAB (PROTONIX) PO SCH (09:08)
[2020-02-14] MEDS: ASPIRIN 81 MG ENTERIC TAB PO SCH (09:09)
[2020-02-14] MEDS: BENAZEPRIL 5 MG TAB PO SCH (09:09)
--- NOTE | 2020-02-14 09:57 | IPNPDOC ---
Date Seen The patient was seen on 02/14/20. Progress Note Pt seen and examined. Doing well POD #3 s/p L AKA. Pain better, and up doing excellent work with PT/OT. Per the therapists, he is making rapid progress. L AKA dressing removed, and incision is c/d/i without drainage, bruising, induration or fluctuance. Thoroughly cleaned, redressed with xeroform, fluffs, 4x4, kerlex, beck wrap x2. Pt tolerated well. D/w pt that nutrition is still clement to healing. He had very little muscle or tissue integrity intraop due to longstanding poor appetite and protein malnutrition. I again strongly encouraged him to eat as much protein as possible to help with healing and improve tissue integrity. He is trying, and is also trying to supplement with ensure when eating a full meal feels too challenging. We appreciate the hospitalist team and ARU team for assisting us with the care of this patient. VS, I&O, 24H, Fishbone Vital Signs/I&O Vital Signs Date Time Temp Pulse Resp B/P (MAP) Pulse Ox O2 Delivery O2 Flow Rate FiO2 02/14/20 09:09 130/65 02/14/20 06:00 97.6 62 18 96 Room Air I&O- Last 24 Hours up to 6 AM 02/14/20 06:00 Intake Total 960 ml Balance 960 ml Laboratory Data 24H LABS Laboratory Tests 2 02/13/20 11:35: Bedside Glucose (Misc Panel) 203H 02/13/20 16:25: Bedside Glucose (Misc Panel) 321H 02/13/20 19:46: Bedside Glucose (Misc Panel) 371H 02/14/20 06:10: Bedside Glucose (Misc Panel) 248H OSMIN GOTTLIEB MD Feb 14, 2020 09:57
[2020-02-14 14:00] VITALS: BP 104/50
[2020-02-14 20:00] VITALS: BP 151/70
[2020-02-14] MEDS: PERCOCET 5MG/325MG TAB PO PRN (20:47)
[2020-02-15 05:47] VITALS: BP 117/56
[2020-02-15] MEDS: HEPARIN SOD (PORCINE) 5000 UNITS/ML VIAL (J1644 PER 1000UNITS) SC SCH ×2 (08:43→20:25)
[2020-02-15] MEDS: ASPIRIN 81 MG ENTERIC TAB PO SCH (08:43)
[2020-02-15] MEDS: PANTOPRAZOLE 40MG TAB (PROTONIX) PO SCH (08:43)
[2020-02-15] MEDS: SIMVASTATIN 20 MG TAB PO SCH (08:43)
[2020-02-15] MEDS: BENAZEPRIL 5 MG TAB PO SCH (08:44)
[2020-02-15] MEDS: REMEDY PHYTOPLEX Z-GUARD PASTE 113GM TUBE (FROM STOREROOM PRODUCT) TOP SCH ×3 (08:45→20:27)
[2020-02-15] MEDS: SENOKOT S TAB PO SCH (08:45)
[2020-02-15] MEDS: HumaLOG INSULIN (NovoLOG) PER UNIT SC SCH ×4 (08:45→20:27)
[2020-02-15] MEDS: LEVEMIR (INSULIN DETEMIR) 1 UNITS/0.01ML SC SCH ×2 (08:45→20:27)
[2020-02-15] MEDS: DOCUSATE SODIUM 100 MG CAP PO SCH ×2 (08:46→20:27)
[2020-02-15 14:00] VITALS: BP 123/61
[2020-02-15 20:00] VITALS: BP 125/72
[2020-02-15] MEDS: PERCOCET 5MG/325MG TAB PO PRN (20:26)
[2020-02-16 06:00] VITALS: BP 130/61
[2020-02-16] MEDS: PANTOPRAZOLE 40MG TAB (PROTONIX) PO SCH (08:28)
[2020-02-16] MEDS: ASPIRIN 81 MG ENTERIC TAB PO SCH (08:28)
[2020-02-16] MEDS: LEVEMIR (INSULIN DETEMIR) 1 UNITS/0.01ML SC SCH (08:29)
[2020-02-16] MEDS: BENAZEPRIL 5 MG TAB PO SCH (08:29)
[2020-02-16] MEDS: SIMVASTATIN 20 MG TAB PO SCH (08:29)
[2020-02-16] MEDS: HumaLOG INSULIN (NovoLOG) PER UNIT SC SCH ×4 (08:30→20:19)
[2020-02-16] MEDS: SENOKOT S TAB PO SCH (08:30)
[2020-02-16] MEDS: DOCUSATE SODIUM 100 MG CAP PO SCH ×2 (08:30→20:20)
[2020-02-16] MEDS: REMEDY PHYTOPLEX Z-GUARD PASTE 113GM TUBE (FROM STOREROOM PRODUCT) TOP SCH ×3 (08:31→20:20)
[2020-02-16] MEDS: HEPARIN SOD (PORCINE) 5000 UNITS/ML VIAL (J1644 PER 1000UNITS) SC SCH ×2 (08:31→20:19)
[2020-02-16 08:37] LABS: BASO % 0.4 % (0.0-1.0); EOS # 0.2 10^3/uL (0.0-0.5); EOS % 3.7 % (0.0-3.0); HEMATOCRIT 35.5 % (42.0-52.0); HEMOGLOBIN 11.2 g/dl (13.5-17.5); LYMPH % 20.4 % (24.0-44.0); MEAN CORPUSCULAR HEMOGLOBIN 26.7 pg (27.0-33.0); MEAN CORPUSCULAR HGB CONC 31.5 g/dl (32.0-36.5); MEAN CORPUSCULAR VOLUME 84.7 fl (80.0-96.0); MONO # 0.5 10^3/uL (0.0-0.8); NEUTROPHILS # 3.1 10^3/uL (1.5-8.5); NEUTROPHILS % 64.3 % (36.0-66.0); PLATELET COUNT, AUTOMATED 241 10^3/uL (150-450); RED BLOOD COUNT 4.19 10^6/uL (4.30-6.10); WHITE BLOOD COUNT 4.8 10^3/uL (4.0-10.0)
[2020-02-16 08:55] LABS: BLOOD UREA NITROGEN 20 MG/DL (7-18); CALCIUM LEVEL 8.6 MG/DL (8.8-10.2); CARBON DIOXIDE LEVEL 28 MEQ/L (21-32); CHLORIDE LEVEL 100 MEQ/L (98-107); CREATININE FOR GFR 0.85 MG/DL (0.70-1.30); GLOMERULAR FILTRATION RATE > 60.0 (>42); GLUCOSE, FASTING 369 MG/DL (70-100); POTASSIUM SERUM 4.4 MEQ/L (3.5-5.1); SODIUM LEVEL 137 MEQ/L (136-145)
--- NOTE | 2020-02-16 09:29 | IPNPDOC ---
Date Seen The patient was seen on 02/16/20. Progress Note Patient seen and examined postop day 5 status post left above-knee amputation, doing well in rehabilitation. His pain is minimal, and he only takes pain medication at night, but still does feel he needs Percocet at night. During the day, he says his pain is not bad enough to need narcotic medication, and we are happy that he is doing so well. He is still struggling with his appetite, and does not want to drink the insurer because as 26 g of sugar. We will see if we can get closer now or diabetic resource and add protein to that instead. The patient prefers chocolate Trotter, and the nurse will work on getting this for him today. He needs nutrition to heal. He is high risk for per wound healing due to minimal muscle noted during surgery, important tissue quality due to chronic protein malnutrition. However, we are pleased that he is trying to eat more protein and continue to encourage him to do so. On exam, his left AKA stump is clean dry and intact. There is no significant drainage on the dressings. The incision is healing well best far. The felix and sutures are intact. We tho roughly cleaned this and fluffs 4 x 4's and Kerlix were used to dress the stump. We then placed to Mauricio wraps for compression. We will plan for staple removal at 2-3 weeks, and suture removal at 3-4 weeks. I'd like the patient to come back and see us a 1-2 weeks after discharge so we can follow his progress closely. He says he is getting around well with a walker and with crutches although they pre grady him to use a walker so he goes a bit slower. He is doing well with his ADLs and occupational therapy tasks. He thinks he might be ready to go home tomorrow or sometime early this week. We are pleased with his progress and appreciate the assistance of our ARU team and hospitalist team. At discharge, it is okay for the patient to shower but no tub baths until the incision is completely healed and felix and sutures are removed. Dry dressing and compression will be needed daily. He says the therapists provided a video to him about how to do these dressings at home, so his can help him. We appreciate them doing that. We will follow. VS, I&O, 24H, Wilder Vital Signs/I&O Vital Signs Date Time Temp Pulse Resp B/P (MAP) Pulse Ox O2 Delivery O2 Flow Rate FiO2 02/16/20 08:29 130/61 02/16/20 06:00 97.0 66 18 96 Room Air I&O- Last 24 Hours up to 6 AM 02/16/20 06:00 Intake Total 1530 ml Output Total 400 ml Balance 1130 ml Laboratory Data 24H LABS Laboratory Tests 2 02/15/20 11:52: Bedside Glucose (Misc Panel) 222H 02/15/20 17:22: Bedside Glucose (Misc Panel) 202H 02/15/20 19:15: Bedside Glucose (Misc Panel) 254H 02/16/20 06:23: Bedside Glucose (Misc Panel) 296H 02/16/20 07:57: Immature Granulocyte % (Auto) 1.2, Neutrophils (%) (Auto) 64.3, Lymphocytes (%) (Auto) 20.4L, Monocytes (%) (Auto) 10.0H, Eosinophils (%) (Auto) 3.7H, Basophils (%) (Auto) 0.4, Neutrophils # (Auto) 3.1, Lymphocytes # (Auto) 1.0L, Monocytes # (Auto) 0.5, Eosinophils # (Auto) 0.2, Basophils # (Auto) 0.0, Nucleated Red Blood Cells % (auto) 0.0, Anion Gap 9, Glomerular Filtration Rate > 60.0, Calcium Level 8.6L CBC/BMP Laboratory Tests 02/16/20 07:57 OSMIN GOTTLIEB MD Feb 16, 2020 09:29
[2020-02-16] MEDS ORDERED: INSUDET SC ×3 (10:02→10:11)
[2020-02-16] MEDS ORDERED: INSUHUMDS SC (10:02)
[2020-02-16] MEDS ORDERED: ASPI81TAEC PO (10:02)
[2020-02-16] MEDS ORDERED: PERCOCET PO (10:02)
[2020-02-16] MEDS ORDERED: BENA5TA PO (10:02)
[2020-02-16] MEDS ORDERED: SIMV20TA22 PO (10:02)
[2020-02-16] MEDS ORDERED: OXYC1TAB23 PO (10:05)
[2020-02-16 13:55] VITALS: BP 126/63
--- NOTE | 2020-02-16 15:30 | IPNPDOC ---
PM&R Progress Note DATE OF SERVICE: Feb 16, 2020 [employer]isher Progress Note Subjective: Patient seen this morning, stating he was in good spirits, felt stronger, and would avoid ensure drinks which had contributed to elevated finger sticks. He was encourage dot use protein shakes at home that are sugar free. REVIEW OF SYSTEMS: The following is a completed review of systems and has been reviewed. Review of systems otherwise unremarkable. PAIN: Patient self reports mild left residual limb pain EYES: No recent vision changes EARS, NOSE, & THROAT: No throat pain, or dysphagia, or rhinorrhea CARDIOVASCULAR: Denies chest pain or palpitations PULMONARY: Denies shortness of breath GASTROINTESTINAL: Denies constipation/diarrhea GENITOURINARY: denies dysuria MUSCULOSKELETAL: LLE AKA NEUROLOGICAL:+ peripheral neuropathy HEMATOLOGICAL: denies easy bruising SKIN: left AKA incision and right plantar foot ulcer PSYCHIATRIC: Unremarkable All other review of systems found to be negative. PHYSICAL EXAMINATION: VITAL SIGNS: Please see below. GENERAL: Pleasant and cooperative. No acute distress. HEENT: PERRL. Extraocular movements intact. Clear conjunctiva CARDIOVASCULAR: Regular rate and rhythm. No murmurs, rubs, or gallops LUNGS: Clear to auscultation bilaterally. No wheezes. No rhonchi ABDOMEN: Soft, nontender, nondistended. Positive bowel sounds. Normal active bowel sounds NEUROLOGICAL: Alert and oriented times three. Cranial nerves II through XII grossly intact. Sensation grossly intact decreased to light touch tight LE in stocking pattern EXTREMITIES: 5\5 strength bilateral upper extremities. 5\5 strength right lower extremity 5/5 strength in left hip flexion. SKIN: left AKA incision c/d/i with minimal erythema, no induration or drainage -righty plantar ulcer hyper keratotic with dark center ASSESSMENT:74-year-old M with past medical history of PAD who presents status post left AKA PLAN: 1. Rehab- PT/OT advance gait and ADLs, strengthen/stretch/maintain ROM all 4 limbs, left residual limb desensitization, energy conservation- ambulating well with RW, room privileges 2. neuro: no pertinent hx 3. Cardiac: HTN c/u Benazapril, medicine consulted to assist in overall management -HLD c/u statin -c/u ASA 4. Resp: encourage incentive spirometry, monitor for infection 5. Endo: hx of DM with poorly controlled glucose control, c/u Levemir qhs will increase evening and daytime dosing, c/u ISS, monitor and manage 6. Vasc: hx of multiple bypasses and arteriograms for poor wound healing, now s/p left AKA, vascular consulted- c/u daily dressing change and monitor for infection 7. DVT ppx: heparin 8. GI ppx: Protonix 9. Pain: Percocet prn 10. Disop: 02-17-20 to home, progressing towards goals Allergies Coded Allergies: No Known Drug Allergies (Verified Allergy, Unknown, 02/12/20) clindamycin (Verified Adverse Reaction, Mild, UPSET STOMACH, VOMITING, 02/11/20) Vital Signs Vital Signs Date Time Temp Pulse Resp B/P (MAP) Pulse Ox O2 Delivery O2 Flow Rate FiO2 02/16/20 13:55 98.6 71 16 126/63 (84) 96 Room Air Laboratory Data CBC/BMP Laboratory Tests 02/16/20 07:57 Labs 24H Laboratory Tests 2 02/15/20 17:22: Bedside Glucose (Misc Panel) 202H 02/15/20 19:15: Bedside Glucose (Misc Panel) 254H 02/16/20 06:23: Bedside Glucose (Misc Panel) 296H 02/16/20 07:57: Immature Granulocyte % (Auto) 1.2, Neutrophils (%) (Auto) 64.3, Lymphocytes (%) (Auto) 20.4L, Monocytes (%) (Auto) 10.0H, Eosinophils (%) (Auto) 3.7H, Basophils (%) (Auto) 0.4, Neutrophils # (Auto) 3.1, Lymphocytes # (Auto) 1.0L, Monocytes # (Auto) 0.5, Eosinophils # (Auto) 0.2, Basophils # (Auto) 0.0, Nucleated Red Blood Cells % (auto) 0.0, Anion Gap 9, Glomerular Filtration Rate > 60.0, Calcium Level 8.6L 02/16/20 11:42: Bedside Glucose (Misc Panel) 201H Current Medications Current Medications Current Medications Medications (Trade) Dose Ordered Sig/Gume Route PRN Reason Start Time Stop Time Status Last Admin Dose Admin Acetaminophen (Tylenol Tab) 1,000 mg TID PO 02/12/20 16:00 02/13/20 07:54 DC 02/12/20 17:19 Aspirin (Ecotrin) 81 mg DAILY PO 02/13/20 11:30 02/16/20 08:28 Benazepril HCl (Lotensin) 5 mg DAILY PO 02/13/20 09:00 02/16/20 08:29 Bisacodyl (Dulcolax Suppository) 10 mg DAILYPRN PRN ME CONSTIPATION 02/12/20 15:30 02/13/20 10:00 DC Dextrose (Dextrose 50%) 25 ml ASDIRECTED PRN IV SEE LABEL COMMENTS 02/12/20 15:30 Diazepam (Valium) 5 mg Q6HP PRN PO pain 02/12/20 15:30 02/13/20 11:37 DC Docusate Sodium (Colace) 100 mg BID PO 02/12/20 21:00 02/13/20 10:00 DC Docusate Sodium (Colace) 200 mg BID PO 02/13/20 21:00 02/13/20 20:53 Glucagon (Glucagon) 1 mg ASDIRECTED PRN SC SEE LABEL COMMENTS 02/12/20 15:30 Glucose (Glucose) 16 GM ASDIRECTED PRN PO SEE LABEL COMMENTS 02/12/20 15:30 Heparin Sodium (Porcine) (Heparin) 5,000 units Q12H SC 02/12/20 21:00 02/16/20 08:31 Insulin Detemir (Levemir Insulin) 5 units DAILY SC 02/13/20 09:00 02/16/20 09:50 DC 02/16/20 08:29 Insulin Detemir (Levemir Insulin) 10 units DAILY SC 02/17/20 09:00 Insulin Detemir (Levemir Insulin) 45 units QHS SC 02/12/20 21:00 02/16/20 10:10 DC 02/15/20 20:27 Insulin Detemir (Levemir Insulin) 50 units QHS SC 02/16/20 21:00 Insulin Human Lispro (HumaLOG INSULIN) SEE PROTOCOL TABLE AC SC 02/13/20 07:30 02/16/20 12:08 Insulin Human Lispro (HumaLOG INSULIN) SEE PROTOCOL TABLE ACHS SC 02/12/20 17:30 02/12/20 20:54 DC 02/12/20 17:20 Insulin Human Lispro (HumaLOG INSULIN) SEE PROTOCOL TABLE QHS SC 02/12/20 21:00 02/15/20 20:27 Lactobacillus Acidophilus (Bacid) 1 ea TID PO 02/12/20 16:00 02/13/20 10:00 DC 02/13/20 08:22 Oxycodone HCl (Roxicodone, Oxyir) 5 mg Q4HP PRN PO PAIN 02/12/20 15:30 02/13/20 11:37 DC 02/12/20 17:20 Oxycodone/ Acetaminophen (Percocet 5mg/ 325mg Tablet) 1 tab Q4H PRN PO pain >4 02/13/20 11:45 Oxycodone/ Acetaminophen (Percocet 5mg/ 325mg Tablet) 1 tab Q6HP PRN PO MILD/MODERATE PAIN (PS 1-7) 02/13/20 08:00 02/13/20 11:37 DC Oxycodone/ Acetaminophen (Percocet 5mg/ 325mg Tablet) 2 tab Q6HP PRN PO SEVERE PAIN (PS 8-10) 02/13/20 08:00 02/15/20 20:26 Pantoprazole Sodium (Protonix) 40 mg DAILY PO 02/13/20 09:00 02/16/20 08:28 Senna (Senokot) 1 tab QHS PO 02/12/20 21:00 02/13/20 10:00 DC Senna/Docusate Sodium (Senokot S) 1 tab DAILY PO 02/14/20 09:00 Simvastatin (Zocor) 20 mg DAILY PO 02/13/20 09:00 02/16/20 08:29 CALOS REBOLLAR MD Feb 16, 2020 15:30
[2020-02-16 20:00] VITALS: BP 131/69
[2020-02-16] MEDS: PERCOCET 5MG/325MG TAB PO PRN (20:21)
[2020-02-16] MEDS ORDERED: LEVEMIR (INSULIN DETEMIR) 1 UNITS/0.01ML SC SCH (21:00)
[2020-02-17 06:00] VITALS: BP 151/71
[2020-02-17] MEDS: DOCUSATE SODIUM 100 MG CAP PO SCH (08:31)
[2020-02-17] MEDS: HumaLOG INSULIN (NovoLOG) PER UNIT SC SCH ×2 (08:31→12:23)
[2020-02-17] MEDS: SENOKOT S TAB PO SCH (08:32)
[2020-02-17 08:34] VITALS: BP 142/70
[2020-02-17] MEDS: ASPIRIN 81 MG ENTERIC TAB PO SCH (08:34)
[2020-02-17] MEDS: HEPARIN SOD (PORCINE) 5000 UNITS/ML VIAL (J1644 PER 1000UNITS) SC SCH (08:34)
[2020-02-17] MEDS: SIMVASTATIN 20 MG TAB PO SCH (08:34)
[2020-02-17] MEDS: BENAZEPRIL 5 MG TAB PO SCH (08:34)
[2020-02-17] MEDS: PANTOPRAZOLE 40MG TAB (PROTONIX) PO SCH (08:34)
[2020-02-17] MEDS: REMEDY PHYTOPLEX Z-GUARD PASTE 113GM TUBE (FROM STOREROOM PRODUCT) TOP SCH (08:35)
[2020-02-17] MEDS ORDERED: LEVEMIR (INSULIN DETEMIR) 1 UNITS/0.01ML SC SCH (09:00)
--- NOTE | 2020-02-17 10:22 | PMRDS ---
DATE OF ADMISSION: 02/12/2020 DATE OF DISCHARGE: CHIEF COMPLAINT/DISCHARGE DIAGNOSIS: Left AKA. HISTORY OF PRESENT ILLNESS: 74 M pmh DM, HLD, PAD, HTN, Colon cancer presented to [facility] from the vascular clinic on 02-11-20 for left AKA in the setting of numerous bypasses, partial amputations, and persistent wounds. He was started on pre-op IV antibiotics and underwent a left AKA that same day without immediate post-op complications. He did develop post-op anemia and had elevated blood glucose levels. He was seen by therapy following surgery and had new impairments in ambulation and mobility well below her baseline. He was deemed medically appropriate for discharge to [facility] on 02-12-20 for further rehab and medical oversight. PAST MEDICAL HISTORY: As per HPI. HOSPITAL COURSE: The patient was admitted and enrolled in a comprehensive physical therapy (PT), occupational therapy (OT) program. He received 24-hour nursing supervision and weekly team meetings were held to discuss his progress. The patient's blood pressure was well-controlled during his hospital course and he was restarted back on his aspirin postoperatively. The patient had difficult to control glucose for which his Levemir dosing was adjusted, and the patient was discharged home on insulin and encouraged to followup closely with his primary care physician regarding further glucose management. The patient's left azxfu-ogvu-mwpcouxnqg (AKA) healed well during his hospital course without any signs of infection and he was deemed medically and functionally stable to return home on 02/17/2020. DISCHARGE MEDICATIONS: As per instructions. FUNCTIONAL HISTORY ON DISCHARGE: The patient was modified independent for functional transfers and ambulation short distances with a rolling walker, standby assist for stairs and modified independent for dressing, toileting, and bathing. Patient was noted to have developed blister on the plantar surface of his right foot on day of discharge, next to the dry plantar ulcer he had been admitted with. Patient was instructed to limit his ambulation to transfers only until cleared by Dr. Puckett with whom he has an appointment 02-20-20 at 9:30 am. Thank you for this referral. FABIENNE
[2020-02-17] MEDS: PERCOCET 5MG/325MG TAB PO PRN (10:59)
== END 2020-02-17 14:15 | disposition home or self-care (01) | DRG 561 ==
LOC: EEVIPCON 16:00 → M PM&R 16:00
PROVIDERS: ADMIT Physical Medicine & Rehabilitation; ATTEND Physical Medicine & Rehabilitation
DX: Z47.81 Encounter for orthopedic aftercare following surgical amputation (principal); E11.51 Type 2 diabetes mellitus with diabetic peripheral angiopathy without gangrene; R26.89 Other abnormalities of gait and mobility; G54.6 Phantom limb syndrome with pain; E11.42 Type 2 diabetes mellitus with diabetic polyneuropathy; F17.210 Nicotine dependence, cigarettes, uncomplicated; E11.65 Type 2 diabetes mellitus with hyperglycemia; E78.5 Hyperlipidemia, unspecified; I10 Essential (primary) hypertension; Z85.038 Personal history of other malignant neoplasm of large intestine; Z89.612 Acquired absence of left leg above knee; Z79.4 Long term (current) use of insulin; Z79.899 Other long term (current) drug therapy; Z88.1 Allergy status to other antibiotic agents; K59.00 Constipation, unspecified

== ENCOUNTER → 2020-03-12 | Outpatient (CLI) | payer MEDICARE, OTHER ==
[~2020-03-12] MED LIST changes: +ASPI81TAEC PO; +ATOR40TA75 PO; +BENA5TA PO; +LANTINJ4 SC; +OXYC1TAB23 PO; +PLAV1TAB2 PO
== END ==
LOC: M LABSMTC 09:42
PROVIDERS: ATTEND Anesthesiology
DX: Z01.818 Encounter for other preprocedural examination (principal); Z11.59 Encounter for screening for other viral diseases

== ENCOUNTER 2020-03-15 06:15 | Inpatient (IN) | payer MEDICARE, OTHER ==
[~2020-03-15] VITALS: Ht 177.8 cm; Wt 70.5 kg
[2020-03-15] VITALS (8 sets, daily range): BP systolic 119–158; BP diastolic 62–81
[~2020-03-15 06:15] MED LIST changes: -ATOR40TA75 PO; +LIDOCAINE 1% MDV 20ML VIAL SQ PRN; +LR 1,000 ML IV ONE; -PLAV1TAB2 PO; +ceFAZolin SOD 2 GM in IV 1 EA IV ONE
[2020-03-15] MEDS ORDERED: prebiotic PO (06:50)
[2020-03-15 06:54] LABS: HEMATOCRIT 47.3 % (42.0-52.0); HEMOGLOBIN 14.3 g/dl (13.5-17.5); MEAN CORPUSCULAR HEMOGLOBIN 26.8 pg (27.0-33.0); MEAN CORPUSCULAR HGB CONC 30.2 g/dl (32.0-36.5); MEAN CORPUSCULAR VOLUME 88.6 fl (80.0-96.0); PLATELET COUNT, AUTOMATED 200 10^3/uL (150-450); RED BLOOD COUNT 5.34 10^6/uL (4.30-6.10); WHITE BLOOD COUNT 5.2 10^3/uL (4.0-10.0)
[2020-03-15 07:08] LABS: INR 1.05; PROTHROMBIN TIME 13.4 SECONDS (11.8-14.0)
[2020-03-15 07:09] LABS: PARTIAL THROMBOPLASTIN TIME 27.4 SECONDS (25.0-38.4)
[2020-03-15] MEDS ORDERED: THROMBIN SOLN 20,000 UNITS KIT As Ordered ONE (07:09)
[2020-03-15] MEDS ORDERED: ISOVUE-300 61% 50ML VIAL As Ordered ONE (07:09)
[2020-03-15] MEDS ORDERED: BUPIVACAINE/EPIN 0.5% 30 ML VIAL As Ordered ONE (07:10)
[2020-03-15] MEDS ORDERED: HEPARIN SOD (PORCINE) 5000UNITS/ML VIAL (J1644 PER 1000UNITS) As Ordered ONE ×2 (07:10→07:24)
[2020-03-15] MEDS ORDERED: LIDOCAINE 2% 100MG/5ML SDV (FOR ANES.) As Ordered ONE (07:18)
[2020-03-15] MEDS ORDERED: ROCURONIUM BROMIDE 50 MG/5 ML VIAL As Ordered ONE ×2 (07:18→08:52)
[2020-03-15] MEDS ORDERED: propofoL 200 MG/20 ML VIAL As Ordered ONE (07:18)
[2020-03-15 07:19] LABS: BLOOD UREA NITROGEN 24 MG/DL (7-18); CALCIUM LEVEL 8.8 MG/DL (8.8-10.2); CARBON DIOXIDE LEVEL 29 MEQ/L (21-32); CHLORIDE LEVEL 107 MEQ/L (98-107); CREATININE FOR GFR 0.86 MG/DL (0.70-1.30); GLOMERULAR FILTRATION RATE > 60.0 (>42); GLUCOSE, FASTING 94 MG/DL (70-100); POTASSIUM SERUM 4.6 MEQ/L (3.5-5.1); SODIUM LEVEL 141 MEQ/L (136-145)
[2020-03-15] MEDS ORDERED: ONDANSETRON 4MG/2ML VIAL As Ordered ONE ×2 (07:19→11:45)
[2020-03-15] MEDS ORDERED: dexameTHASONE 4 MG/ML 1ML VIAL (J1100 PER 1MG) As Ordered ONE (07:19)
[2020-03-15] MEDS ORDERED: fentaNYL 100 MCG/2 ML INJECTION (J3010) As Ordered ONE ×2 (07:19→08:23)
[2020-03-15] MEDS ORDERED: LACRILUBE (AKWA TEARS) OPHTH OINT 3.5 GM As Ordered ONE (07:51)
[2020-03-15] MEDS ORDERED: ACETAMINOPHEN 1000MG 100ML IV BTL (OFIRMEV) (J0131 PER 10MG) As Ordered ONE (11:12)
[2020-03-15] MEDS ORDERED: PHENYLephrine HCL 500 MCG/5 ML (100MCG/ML) SYRINGE (J2370) As Ordered ONE (11:18)
[2020-03-15] MEDS ORDERED: SUGAMMADEX SODIUM 500 MG/5 ML VIAL (BRIDION) As Ordered ONE ×2 (11:26→11:58)
[2020-03-15] MEDS ORDERED: HYDROmorphone 2 MG TAB PO PRN (12:00)
[2020-03-15] MEDS ORDERED: diazePAM 5 MG TAB PO PRN (12:00)
[2020-03-15] MEDS ORDERED: PERCOCET 5MG/325MG TAB PO PRN ×2 (12:00)
[2020-03-15] MEDS ORDERED: fentaNYL 100 MCG/2 ML INJECTION (J3010) IV PRN (12:15)
[2020-03-15] MEDS ORDERED: ONDANSETRON 4MG/2ML VIAL IV PRN (12:15)
[2020-03-15] MEDS ORDERED: LR 1,000 ML IV SCH (12:15)
[2020-03-15] MEDS ORDERED: HYDROMORPHONE HCL 0.5 MG/ 0.5 ML SYRINGE (J1170 PER 1) IV PRN (12:15)
[2020-03-15] MEDS ORDERED: oxyCODONE 5MG TAB PO PRN (12:15)
--- NOTE | 2020-03-15 12:21 | ROOPDOC ---
[facility] Report Of Operation Report of Operation DATE OF PROCEDURE: 03/15/20 PREPROCEDURE DIAGNOSES: Atherosclerosis of the northway vessels with nonhealing wounds plantar aspect of the right foot POSTPROCEDURE DIAGNOSES: Same. PROCEDURE: 1. Right common femoral endarterectomy with xenosure patch angioplasty 2. Right femoral to below-knee popliteal redo bypass with reversed cadaver saphenous vein graft SURGEON: Osmin Lin MD ANESTHESIA: Gen. anesthesia and local anesthesia with 30 mL Marcaine with epinephrine INDICATION FOR PROCEDURE: This is a very pleasant 74-year-old gentleman with severe end-stage bilateral peripheral vascular disease status post multiple failed endovascular interventions and failed bilateral femoropopliteal bypasses done in an outside institution. The patient is now one month status post left above-knee amputation, and still has a plantar nonhealing wound of the right foot that is worrisome now that he is utilizing this limb even more than before due to contralateral amputation. He has a Charcot foot, and is at risk for wounds even with good blood flow, but currently his blood flow in the right lower extremity is significantly reduced and is not amenable to wound healing. We discussed the risks benefits and alternatives to a redo from below-knee popliteal bypass. His previous bypass was above the knee, but he had large bulky outside plaque in the popliteal artery that I feel may have limited his outflow and caused failure of his bypass. He also has some bulky plaque in the below- knee popliteal artery but just distal to this, proximal to the origin of the tibial arteries, there is an area of widely patent popliteal artery. This will be our target today. The patient does not have vein for a redo bypass, and we will use a reversed cadaver saphenous vein for this procedure. Risks benefits and alternatives were explained to the patient needs agreeable to proceed. Informed consent was obtained. REPORT OF OPERATION: Patient was brought to the operating room in stable condition. General anesthesia and antibiotics were administered without complication. His right groin and right leg were prepped and draped in a sterile fashion. A timeout was performed. An oblique incision was made over the right groin distal to the inguinal ligament and carried down to the subcutaneous tissue with Bovie cautery. Bridging veins were suture ligated and divided. He continued her dissection down to the femoral sheath. There was considerable scar tissue due to previous surgeries and interventions. Eventually, we were able to safely dissected out the common femoral artery, the circumflex vessels, the profunda in the SFA. Vesseloops were placed her on the circumflex vessels the SFA and the profunda. The common femoral artery was calcified up into the external iliac artery and no endpoint was noted. Unfortunately, we will not be able to endarterectomized the entire inflow, but we will do an endarterectomy local at the common femoral artery to help with bypass inflow. Before doing endarterectomy, we did her dissection at the distal popliteal artery. A longitudinal incision was made over the medial calf at the area of previous incision and carried down to the subcutaneous tissue with Bovie cautery. Saphenous vein was identified and carefully preserved. Branches were clipped. We continued her dissection down to the posterior tibia. We're eventually able to identify the popliteal veins and artery. We carefully skeletonized the artery proximally and distally and from the veins. We then placed a vessel loop proximally. We then carefully dissected as far distal as possible until we were down to the anterior tibial artery and the tibioperoneal trunk. Vesseloops were placed around these vessels. There was a soft spot just proximal to the t ibial vessels which will be our target for bypass. Just proximal to the soft spot, there was bulky heavy plaque, likely near occlusive, and we will avoid this. We then returned to the femoral vessels. 5000 units of heparin was given allowed to circulate. Heavy clamps were placed on the common femoral artery due to heavy calcification. We then secured the Vesseloops and an arteriotomy was made from the SFA to just above the circumflex vessels. Heavily calcified near occlusive plaque was noted in the common femoral artery. This was severe. We carefully removed the plaque circumferentially and then divided it with a pot scissors. We then feathered the plaque out proximally and distally within the incision. Care was taken to remove all loose intermittent debris from the artery. We then inverted the profunda and the SFA and removed as much plaque from the proximal aspect of these vessels as possible. We then flushed each with heparinized saline. Next, we removed is much plaque from the proximal common femoral artery as we could. Once we had a good end point, we irrigated again with heparinized saline. We are satisfied with her endarterectomy, a patch was anastomosed in a running fashion with 5-0 Prolene hemostatic suture. Before the final sutures are placed, we flushed the inflow and outflow arteries and irrigated with heparinized saline. The final sutures were placed. Flow was restored in good hemostasis was noted. Our cadaver vein was properly thawed and prepared and flushed. We used a tunneler to create a tunnel from the right groin to the right low knee incision along the medial thigh and knee. We then marked the vein to keep it in correct orientation and tunneled it in a reversed fashion. The proximal end was beveled and spatulated for anastomosis. Additional heparin was given by anesthesia that allowed to circulate. We resecured the clamps and Vesseloops and an arteriotomy was made in the patch. The cadaver vein was anastomosed to the patch in an end-to-side fashion with running 6-0 Prolene suture. Before the final sutures were placed, we flushed the inflow and outflow of the artery. We then irrigated with heparinized saline and placed her final sutures. A bulldog clamp was placed on the vein and flow was restored. Good hemostasis was noted. We then let the blood flushed all the way to the end of the vein to make sure there were no twists or kinks in the vein graft. Good flow was noted through the vein graft. We irrigated the vein graft with heparinized saline and a bulldog clamp was placed. The vein graft was cut to the appropriate length and spatulated. We then secured the Vesseloops on the tibial vessels and the popliteal artery and an arteriotomy was made. The vein graft was anastomosed to the popliteal artery and an end-to-side fashion with 6-0 Prolene suture. Before the final sutures are placed, we flushed the inflow of the vein graft and the arteries as well. We irrigated with heparinized saline. The final sutures were placed and flow was restored. Doppler was used to confirm excellent flow in the tibial vessels and through the bypass. There is also excellent flow in the profunda and some flow noted in the SFA, but this is intermittently occluded throughout. We irrigated all incisions with copious amounts of saline. Local anesthesia was a outreach liaison to skin and subcutaneous tissue around each incision. At the popliteal incision, the deep tissue was carefully closed with intermittent 2-0 Vicryl sutures to make sure the vein graft was in good position. We then closed to additional layers of fascia with 2-0 Vicryl suture. The deep dermal layer was approximated with interrupted 3-0 Vicryl suture. The skin was closed with skin felix. At the groin, after irrigating a second time with normal saline, we closed the femoral sheath proximally with a running 2-0 Vicryl suture. Care was taken to make sure the vein graft was in good position and we then closed the first fascial layer carefully with 2-0 Vicryl suture. 2 additional fascial layers were closed with 2-0 Vicryl suture. The deep dermal layer was approximated with interrupted 3-0 Vicryl suture. The skin was closed with skin felix. There was excellent flow through the posterior tibial artery in the bypass on final Doppler examination in the OR. Following this, both incisions were clean and dry. 4 x 4's and Tegaderms were placed his final dressings and the patient was allowed to awaken and taken to recovery in stable condition. He tolerated the anesthesia and the procedure well. SPECIMENS: Right femoral plaque sent for pathology ESTIMATED BLOOD LOSS: Approximately 150 mL. COMPLICATIONS: None. PLAN: We will admit the patient to the hospitalist service. He will have bed rest overnight but then activity as tolerated in the morning. We will discontinue the Rueda in the morning. We will start physical and occupational therapy tomorrow. No lifting greater than 5 pounds and no strenuous exercise for 2 weeks until incisions are healed. We will start aspirin and Plavix in the morning. The patient will have a diabetic diet, we will continue to encourage high-protein intake to help with healing. He will need to elevate his right lower extremity when in bed to help with swelling. We will plan for likely discharge in 2-4 days depending on progress. We appreciate the opportunity to participate in the care of this patient. OSMIN LIN MD March 15, 2020 12:21
[2020-03-15] MEDS ORDERED: DEXTROSE 50% 50 ML SYRINGE IV PRN (13:45)
[2020-03-15] MEDS ORDERED: GLUCAGON INJ 1MG VIAL SC PRN (13:45)
[2020-03-15] MEDS ORDERED: GLUCOSE 4GM CHEW TABLET PO PRN (13:45)
--- NOTE | 2020-03-15 13:57 | HPEPDOC ---
General Date of Admission March 15, 2020 at 06:15 Date of Service: March 15, 2020 Chief Complaint The patient is a 74-year-old male who presents to the hospital for an elective right leg femoral-popliteal bypass procedure History of Present Illness Patient is a 74-year-old male with a PMHx HTN, PVD (s/p L AKA 02/11/2020), IDDM2, DLP, Tobacco dependence, Hx of Colon CA (2011, s/p resection / chemotherapy / radiation, recurrent and additional resection 5 years later) who presented to the hospital for an elective right lower extremity femoral- popliteal bypass surgery with vascular surgery. Patient follows with Dr. Moshe Swain as an outpatient and was medically cleared for the procedure. Patient was seen postoperatively. He denies chest pain, shortness of breath, palpitations, cough, abdominal pain, nausea, vomiting, any recent constipation, diarrhea, or urinary discomfort. No recent fever / chills. Patient reports his appetite is fairly normal. Denies any significant changes in his weight. Home Medications Scheduled Aspirin (Aspirin EC) 81 Mg Tablet.dr, 81 MG PO DAILY Benazepril HCl (Benazepril HCl) 5 Mg Tablet, 5 MG PO DAILY Empagliflozin (Jardiance) 25 Mg Tablet, 25 MG PO DAILY, (Reported) Glipizide (Glipizide) 5 Mg Tablet, 5 MG PO QHS, (Reported) Glipizide (Glipizide) 5 Mg Tablet, 2.5 MG PO QAM, (Reported) Insulin Glargine,Hum.rec.anlog (Lantus Solostar) 100 Unit/1 Ml Insuln.pen, 60 U NITS SC QAM, (Reported) Simvastatin (Simvastatin) 20 Mg Tab, 20 MG PO DAILY, (Reported) Sitagliptin Phosphate (Januvia) 100 Mg Tablet, 100 MG PO QAM, (Reported) Scheduled PRN Oxycodone HCl/Acetaminophen (Oxycodone-Acetaminophen 5-325) 1 Each Tablet, 1 TAB PO Q4H PRN for pain [prebiotic] , 1 PO PRN PRN for BOWEL CARE/CONSTIPATION, (Reported) Allergies Coded Allergies: clindamycin (Verified Adverse Reaction, Mild, UPSET STOMACH, VOMITING, 02/11/20) Past Medical History Medical History HTN, PVD (s/p L AKA 02/11/2020), IDDM2, DLP, Tobacco dependence, Hx of Colon CA (2012, s/p resection / chemotherapy / radiation, recurrent and additional resection 5 years later) Surgical History RLE w/ femoral popliteal bypass 1996 Abdominal hernia repair x2 Toes of Left foot amputated x4 L BKA R foot 1st digit fracture R foot 4th digit w/ osteo and resection Family History - Mother and father with a history of DM2 - Sister with a history of breast CA Social History - Denies the use of illicit drugs; Reports he is an active smoker of >30 years; reduce to < 1PPD, Social EtOH use - Denies recent travel or sick contacts - Lives with - 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; 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, 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 Review of Systems Other systems 10 point review of systems complete, all negative otherwise stated in HPI Vital Signs - Vitals: BP 134/65, HR 64, RR 16, Sat 100%RA, Temp 98.0F - General: Lying in bed, No acute distress, Speaking in full sentences, AAOx3 - HEENT: NC, AT, PERRLA, EOMI - CVS: RRR, +S1S2 - Lungs: Fair air entry bilaterally, No appreciable wheezing / rales / rhonchi - Abdomen: Soft, Non-distended, Non-tender - Extremities: R LE without edema, No calf tenderness, L AKA - Neuro: No focal motor or sensory deficit - Skin: No visible rashes Laboratory Data Labs 24H Laboratory Tests 2 03/15/20 06:33: Nucleated Red Blood Cells % (auto) 0.0, Prothrombin Time 13.4, Prothromb Time International Ratio 1.05, Activated Partial Thromboplast Time 27.4, Anion Gap 5L, Glomerular Filtration Rate > 60.0, Calcium Level 8.8 03/15/20 07:25: Bedside Glucose (Misc Panel) 104 03/15/20 12:07: Bedside Glucose (Misc Panel) 150H CBC/BMP Laboratory Tests 03/15/20 06:33 Plan / VTE VTE Prophylaxis Ordered?: Yes Plan Plan Peripheral vascular disease - Patient presented to the hospital for a right lower extremity femoral- popliteal bypass with endarterectomy - Patient has had a recent history of left uzfmu-bsn-pwel amputation on 02/11/20 - Patient has been continued on aspirin and Plavix - Vascular surgery on consultation; appreciate their input - Will remain on bedrest for today; plan for activity as tolerated and PT/OT starting tomorrow morning HTN - Patient blood pressure have been normal in the recovery room - He notes that he does not have a history of hypertension that is on an SG inhibitor for renal protective effect - c/w Benazepril IDDM2 - Will start insulin sliding scale and c/w long acting insulin DLP - c/w Simvastatin Tobacco dependence - Patient has been advised smoking cessation Hx of Colon CA - Dx 2011 - s/p resection / chemotherapy / radiation - Recurrent and additional resection 5 years later DVT prophylaxis - Will start Heparin tomorrow evening MIAN COCHRAN MD March 15, 2020 13:57
[2020-03-15] MEDS: ASPIRIN 81 MG ENTERIC TAB PO SCH (14:43)
[2020-03-15] MEDS: CLOPIDOGREL 75 MG TAB PO SCH (14:43)
[2020-03-15] MEDS: HumaLOG INSULIN (NovoLOG) PER UNIT SC SCH ×2 (18:12→20:46)
[2020-03-16 02:00] VITALS: BP 113/55
[2020-03-16 05:54] LABS: BASO % 0.3 % (0.0-1.0); EOS % 0.4 % (0.0-3.0); HEMATOCRIT 37.7 % (42.0-52.0); LYMPH # 1.4 10^3/uL (1.5-5.0); LYMPH % 14.8 % (24.0-44.0); MEAN CORPUSCULAR HEMOGLOBIN 27.9 pg (27.0-33.0); MEAN CORPUSCULAR HGB CONC 32.6 g/dl (32.0-36.5); MEAN CORPUSCULAR VOLUME 85.5 fl (80.0-96.0); MONO # 0.9 10^3/uL (0.0-0.8); NEUTROPHILS # 7.3 10^3/uL (1.5-8.5); PLATELET COUNT, AUTOMATED 173 10^3/uL (150-450); RED BLOOD COUNT 4.41 10^6/uL (4.30-6.10); WHITE BLOOD COUNT 9.7 10^3/uL (4.0-10.0)
[2020-03-16 05:58] LABS: HEMOGLOBIN A1c 9.6 %
[2020-03-16 06:00] VITALS: BP 136/63
[2020-03-16 06:00] LABS: HEMOGLOBIN 12.3 g/dl (13.5-17.5)
[2020-03-16 06:05] LABS: BLOOD UREA NITROGEN 24 MG/DL (7-18); CALCIUM LEVEL 8.3 MG/DL (8.8-10.2); CARBON DIOXIDE LEVEL 26 MEQ/L (21-32); CHLORIDE LEVEL 104 MEQ/L (98-107); CREATININE FOR GFR 0.89 MG/DL (0.70-1.30); GLOMERULAR FILTRATION RATE > 60.0 (>42); GLUCOSE, FASTING 229 MG/DL (70-100); POTASSIUM SERUM 4.1 MEQ/L (3.5-5.1); SODIUM LEVEL 137 MEQ/L (136-145)
--- NOTE | 2020-03-16 08:31 | IPNPDOC ---
Text Note Date of Service The patient was seen on 03/16/20. NOTE Vascular surgery. Dr. Lin. The patient is a 74-year-old male with history of severe bilateral lower extremity peripheral vascular disease and chronic wounds. The patient has had multiple failed revascularizations including a failed right and left femoropopliteal bypass. The patient states his previous right lower extremity [place] [address] Erwin. The patient is status post left AKA as per Dr. Lin 02/11/20. The patient is postoperative day 1 right lower extremity femoral to below-knee bypass with cadaver vein as per Dr. Lin 03/15/20. The patient is sitting up in bed. He has been eating and drinking. The patient is afebrile. No leukocytosis. The patient's wounds are examined as per Dr. Lin. Shade are intact. No drainage. No surrounding erythema. The wounds are thoroughly cleaned with dry dressing replaced. There is triphasic flow noted with Doppler over the bypass area at the mid thigh. There is a strong monophasic signal over the right PT. There is a abrasion at the pretibial area right lower extremity with plan to apply bacitracin ointment to this area. Continue to keep area clean and dry. There is a chronic wound on the plantar aspect of the right foot which appears to be callus formation. There is no drainage. No erythema. Podiatry has been consulted for additional recommendations and management. The patient is status post left above-knee amputation 02/11/[address] Lin. Shade and sutures have been removed. The wound is healing well. We would like to arrange for the patient to get his stump physician obstetrician and prosthetic evaluation for the left above-knee amputation while he is here. Consult placed to [facility] clinic as per patient request. I called and spoke with [facility]. There are office is located in [place] and see patients in [place] on Wednesdays usually. Per Quyen, they will call back to let the patient know when they will see him because they come from [place]. Continue to monitor wounds. High-protein diet for wound healing. Plan is to remove Rueda catheter this morning. Continue with pain control. Continue aspirin 81 mg/ Plavix/statin. PT/OT has been requested. Reinforced the importance of tobacco cessation following discharge. VS,Wilder, I+O VS, Fishbone, I+O Laboratory Tests 03/16/20 05:22 Vital Signs Date Time Temp Pulse Resp B/P (MAP) Pulse Ox O2 Delivery O2 Flow Rate FiO2 03/16/20 06:00 97.6 60 20 136/63 (87) 94 03/15/20 19:00 Room Air 03/15/20 12:11 10 I&O- Last 24 Hours up to 6 AM 03/16/20 06:00 Intake Total 5250 ml Output Total 3725 ml Balance 1525 ml Zina Barone March 16, 2020 08:31
[2020-03-16] MEDS: CLOPIDOGREL 75 MG TAB PO SCH (08:46)
[2020-03-16] MEDS: SIMVASTATIN 20 MG TAB PO SCH (08:46)
[2020-03-16] MEDS: ASPIRIN 81 MG ENTERIC TAB PO SCH (08:46)
[2020-03-16] MEDS: BENAZEPRIL 5 MG TAB PO SCH (08:48)
[2020-03-16] MEDS: LEVEMIR (INSULIN DETEMIR) 1 UNITS/0.01ML SC SCH (08:48)
[2020-03-16] MEDS: HumaLOG INSULIN (NovoLOG) PER UNIT SC SCH ×4 (08:49→20:52)
[2020-03-16] MEDS: BACITRACIN OINTMENT 30GM TUBE TOP SCH (09:11)
[2020-03-16 14:00] VITALS: BP 101/52
--- NOTE | 2020-03-16 15:44 | IPNPDOC ---
Text Note Date of Service The patient was seen on 03/16/20. NOTE Subjective: No any acute events overnight. Objective: General: Lying in bed, No acute distress, Speaking in full sentences, AAOx3 HEENT: NC, AT, PERRLA, EOMI CVS: RRR, +S1S2 Lungs: Fair air entry bilaterally, No appreciable wheezing / rales / rhonchi Abdomen: Soft, Non-distended, Non-tender Extremities: R LE without edema, No calf tenderness, L AKA Neuro: No focal motor or sensory deficit Skin: No visible rashes Assessment and Plan Patient is a 74-year-old male with a PMHx HTN, PVD (s/p L AKA 02/11/2020), IDDM2, DLP, Tobacco dependence, Hx of Colon CA (2011, s/p resection / chemotherapy / radiation, recurrent and additional resection 5 years later) who presented to the hospital for an elective right lower extremity femoral- popliteal bypass surgery with vascular surgery. Right lower extremity femoral to below-knee bypass with cadaver vein was done by Dr. Lin on 03/15/20. Peripheral vascular disease - Patient has had a recent history of left qnaku-[id number]-xlqs amputation on 02/11/20 - c/w aspirin and Plavix - Right lower extremity femoral to below-knee bypass with cadaver vein was done by Dr. Lin on 03/15/20. - PT/OT - Pain management HTN - Patient blood pressure have been normal in the recovery room - He notes that he does not have a history of hypertension that is on an SG inhibitor for renal protective effect - c/w Benazepril IDDM2 insulin sliding scale and c/w long acting insulin DLP - c/w Simvastatin Tobacco dependence - Patient has been advised smoking cessation Hx of Colon CA - Dx 2011 - s/p resection / chemotherapy / radiation - Recurrent and additional resection 5 years later DVT prophylaxis - Will start Heparin tomorrow evening VS,Fishbone, I+O VS, Fishbone, I+O Laboratory Tests 03/16/20 05:22 Vital Signs Date Time Temp Pulse Resp B/P (MAP) Pulse Ox O2 Delivery O2 Flow Rate FiO2 03/16/20 14:00 99.0 70 18 101/52 (68) 97 03/15/20 19:00 Room Air 03/15/20 12:11 10 I&O- Last 24 Hours up to 6 AM 03/16/20 06:00 Intake Total 5250 ml Output Total 3725 ml Balance 1525 ml GOLDEN JOHNSON DO March 16, 2020 15:44
[2020-03-16 16:54] VITALS: BP 104/56
[2020-03-16] MEDS ORDERED: NS 1,000 ML IV ONE (18:30)
[2020-03-16] MEDS: HEPARIN SOD (PORCINE) 5000UNITS/ML VIAL (J1644 PER 1000UNITS) SC SCH (21:12)
[2020-03-16 22:00] VITALS: BP 137/67
[2020-03-17 06:00] VITALS: BP 136/68
[2020-03-17] MEDS: HEPARIN SOD (PORCINE) 5000UNITS/ML VIAL (J1644 PER 1000UNITS) SC SCH (06:09)
[2020-03-17 06:14] LABS: BASO % 0.3 % (0.0-1.0); EOS # 0.1 10^3/uL (0.0-0.5); HEMATOCRIT 36.6 % (42.0-52.0); HEMOGLOBIN 11.5 g/dl (13.5-17.5); LYMPH # 1.2 10^3/uL (1.5-5.0); LYMPH % 17.4 % (24.0-44.0); MEAN CORPUSCULAR HEMOGLOBIN 27.4 pg (27.0-33.0); MEAN CORPUSCULAR HGB CONC 31.4 g/dl (32.0-36.5); MEAN CORPUSCULAR VOLUME 87.1 fl (80.0-96.0); MONO # 0.8 10^3/uL (0.0-0.8); MONO % 11.3 % (0.0-5.0); NEUTROPHILS # 4.7 10^3/uL (1.5-8.5); NEUTROPHILS % 69.3 % (36.0-66.0); PLATELET COUNT, AUTOMATED 162 10^3/uL (150-450); WHITE BLOOD COUNT 6.7 10^3/uL (4.0-10.0)
[2020-03-17 06:32] LABS: BLOOD UREA NITROGEN 22 MG/DL (7-18); CALCIUM LEVEL 8.8 MG/DL (8.8-10.2); CARBON DIOXIDE LEVEL 27 MEQ/L (21-32); CHLORIDE LEVEL 109 MEQ/L (98-107); CREATININE FOR GFR 0.86 MG/DL (0.70-1.30); GLOMERULAR FILTRATION RATE > 60.0 (>42); GLUCOSE, FASTING 181 MG/DL (70-100); MAGNESIUM LEVEL 1.9 MG/DL (1.8-2.4); SODIUM LEVEL 142 MEQ/L (136-145)
[2020-03-17] MEDS: HumaLOG INSULIN (NovoLOG) PER UNIT SC SCH (08:48)
[2020-03-17] MEDS: ASPIRIN 81 MG ENTERIC TAB PO SCH (08:49)
[2020-03-17] MEDS: SIMVASTATIN 20 MG TAB PO SCH (08:49)
[2020-03-17] MEDS: LEVEMIR (INSULIN DETEMIR) 1 UNITS/0.01ML SC SCH (08:49)
[2020-03-17] MEDS: CLOPIDOGREL 75 MG TAB PO SCH (08:49)
[2020-03-17 08:50] VITALS: BP 134/68
[2020-03-17] MEDS: BACITRACIN OINTMENT 30GM TUBE TOP SCH (08:50)
[2020-03-17] MEDS: BENAZEPRIL 5 MG TAB PO SCH (08:50)
--- NOTE | 2020-03-17 09:18 | IPNPDOC ---
Text Note Date of Service The patient was seen on 03/17/20. NOTE Vascular surgery. Dr. Lin. The patient is a 74-year-old male with history of severe bilateral lower extremity peripheral vascular disease and chronic wounds. The patient has had multiple failed revascularizations including a failed right and left femoropopliteal bypass. The patient states his previous right lower extremity [place] [address] Erwin. The patient is status post left AKA as per Dr. Lin 02/11/20. The patient is postoperative day 1 right lower extremity femoral to below-knee bypass with cadaver vein as per Dr. Lin 03/15/20. The patient has been out of bed with therapy. The patient is afebrile. No leukocytosis. Blood pressure has been stable, he did receive a bolus of IV fluids yesterday. The patient's wounds are examined. Shade are intact. No drainage. No surrounding erythema. The wounds are thoroughly cleaned with dry dressing replaced. There is triphasic flow noted with Doppler over the bypass area at the mid thigh. There is a strong monophasic signal over the right PT/monophasic DP. There is a abrasion at the pretibial area right lower extremity with plan to apply bacitracin ointment to this area. Continue to keep area clean and dry. There is a chronic wound on the plantar aspect of the right foot which appears to be callus formation. There is no drainage. No erythema. Podiatry saw the pt 03/16/20. The patient is status post left above-knee amputation 02/11/[address] Lin. Shade and sutures have been removed. The wound is healing well. 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 Patient is ready for discharge from a vascular standpoint as per Dr. Lin. He should return to clinic in 1 week to check incisions and 2-3 weeks for staple removal. He should shower daily with dressings off. Warm soapy water over the incisions and then pat dry with clean towel. The groin and thigh incision should be covered with a dry gauze and paper tape. He should elevate her right lower extremity above the level of the heart at least 30 minutes 3 times a day to help with any edema. It is okay to ambulate. It is okay to go up and down stairs. However, no lifting greater than 5 pounds and no strenuous exercise for 2 weeks or until incisions are completely healed. He should continue her home medications. We encourage high-protein diet. I have strongly reinforced the importance of tobacco cessation. The patient states he is planning on cessation. Would not recommend any nicotine supplements as these cause peripheral vasoconstriction. I have advised the patient if he fee ls he needs Chantix or Wellbutrin that this would be acceptable. Continue aspirin 81 mg. Continue Plavix 75 mg daily. Continue statin. We appreciate the hospitalist assistance with the management of this patient and we look forward to seeing the patient back in clinic in a week. VS,Danikae, I+O VS, Danikae, I+O Laboratory Tests 03/17/20 05:34 Vital Signs Date Time Temp Pulse Resp B/P (MAP) Pulse Ox O2 Delivery O2 Flow Rate FiO2 03/17/20 08:50 134/68 03/17/20 06:00 97.3 63 18 98 Room Air 03/15/20 12:11 10 I&O- Last 24 Hours up to 6 AM 03/17/20 06:00 Intake Total 2930 ml Output Total 2400 ml Balance 530 ml Zina Barone March 17, 2020 09:13
[2020-03-17] MEDS ORDERED: ATOR40TA75 PO (09:57)
[2020-03-17] MEDS ORDERED: PLAV1TAB2 PO (09:57)
--- NOTE | 2020-03-17 12:59 | CR ---
DATE OF CONSULTATION: 03/16/2020 REASON FOR CONSULTATION: Foot ulceration. Mr. Mcclendon is a pleasant 74-year-old male who was admitted to the hospital for right leg fem-popliteal bypass, which he had underwent. I was asked to see him in consultation due to a foot ulceration. He has had this ulcer for quite some time. He has been under care at the wound care center previously, where this had healed up. Patient is a heavy ambulator prior to his leg amputation, and had been intermittently compliant with offloading measures. He did just have his blood flow procedure, which has gone well. He states that the wound seems to be doing pretty good. He does state that he would not like to have surgery at this time unless necessary. PAST MEDICAL HISTORY: Significant for; Hypertension. Peripheral vascular disease. Insulin dependent diabetes. Dyslipidemia. History of colon cancer. PAST SURGICAL HISTORY: Includes; Right fem bypass. Left leg above knee amputation. Right 5th metatarsal head resection. FAMILY HISTORY: Positive for diabetes. SOCIAL HISTORY: Positive for smoking and tobacco use. REVIEW OF SYSTEMS: Negative for nausea, vomiting, fever, or chills. Labs are reviewed. White blood cell count is 9.7, hemoglobin is 12.3. Lower extremity examination on the right, the foot is well perfused. There is an ulceration of the 4th metatarsal head. This is superficial, approximately 3 mm in diameter. There is no probe to bone or signs of infection. Left leg amputation present. ASSESSMENT: A 74-year-old diabetic male, status post left leg amputation, status post right lower extremity bypass. PLAN: At this time, patient does not need urgent surgical intervention. He does state he has offloading boot which he got from [facility], which does have padding to accommodate for this 4th metatarsal prominence. He is instructed to use this boot as he begins ambulating with his prosthetic. If there are any signs of this wound worsening, ultimately the plan would be removal of the prominent metatarsal head. Will attempt conservative treatments for the time being with close monitoring.
--- NOTE | 2020-03-17 16:15 | DS.PDOC ---
Discharge Summary General Date of Admission March 15, 2020 at 06:15 Date of Discharge 03/17/20 Discharge Summary PROCEDURES PERFORMED DURING STAY: femoral to below-knee bypass with cadaver vein ADMITTING DIAGNOSES: IDDM2 Peripheral vascular disease DLP Tobacco dependence Hx of Colon CA DISCHARGE DIAGNOSES: IDDM2 Peripheral vascular disease DLP Tobacco dependence Hx of Colon CA COMPLICATIONS/CHIEF COMPLAINT: Atherosclerosis [place] Vessels. HISTORY OF PRESENT ILLNESS: Patient is a 74-year-old male with a PMHx HTN, PVD (s/p L AKA 02/11/2020), IDDM2, DLP, Tobacco dependence, Hx of Colon CA (2011, s/p resection / chemotherapy / radiation, recurrent and additional resection 5 years later) who presented to the hospital for an elective right lower extremity femoral-popliteal bypass surgery with vascular surgery. Right lower extremity femoral to below-knee bypass with cadaver vein was done by Dr. Lin on 03/15/20. HOSPITAL COURSE: The patient's wounds are examined. [place] are intact. No drainage. No surrounding erythema. The wounds are thoroughly cleaned with dry dressing replac ed. There is triphasic flow noted with Doppler over the bypass area at the mid thigh. There is a strong monophasic signal over the right PT/monophasic DP. There is a abrasion at the pretibial area right lower extremity with plan to apply bacitracin ointment to this area. Continue to keep area clean and dry. There is a chronic wound on the plantar aspect of the right foot which appears to be callus formation. There is no drainage. No erythema. Podiatry saw the pt 03/16/20. The patient is status post left above-knee amputation 02/11/[address] Lin. Shade and sutures have been removed. The wound is healing well. 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 Patient is ready for discharge from a vascular standpoint as per Dr. Lin. He should return to clinic in 1 week to check incisions and 2-3 weeks for staple removal. He should shower daily with dressings off. Warm soapy water over the incisions and then pat dry with clean towel. The groin and thigh incision should be covered with a dry gauze and paper tape. He should elevate her right lower extremity above the level of the heart at least 30 minutes 3 times a day to help with any edema. It is okay to ambulate. It is okay to go up and down stairs. However, no lifting greater than 5 pounds and no strenuous exercise for 2 weeks or until incisions are completely healed. He should continue her home medications. We encourage high-protein diet. I have strongly reinforced the importance of tobacco cessation. The patient states he is planning on cessation. Would not recommend any nicotine supplements as these cause peripheral vasoconstriction. I have advised the patient if he feels he needs Chantix or Wellbutrin that this would be acceptable. Continue aspirin 81 mg. Continue Plavix 75 mg daily. Continue statin. DISCHARGE MEDICATIONS: Please see below. ALLERGIES: Please see below. PHYSICAL EXAMINATION ON DISCHARGE: VITAL SIGNS: Please see below. Objective: General: Lying in bed, No acute distress, Speaking in full sentences, AAOx3 HEENT: NC, AT, PERRLA, EOMI CVS: RRR, +S1S2 Lungs: Fair air entry bilaterally, No appreciable wheezing / rales / rhonchi Abdomen: Soft, Non-distended, Non-tender Extremities: R LE without edema, No calf tenderness, L AKA Neuro: No focal motor or sensory deficit Skin: No visible rashes LABORATORY DATA: Please see below. PROGNOSIS: fair ACTIVITY: [As tolerated]. DIET: Cardiac DISCHARGE PLAN: Follow vascular surgeon instruction DISPOSITION: 01 Home, Self-Care. ITEMS TO FOLLOWUP ON ON OUTPATIENT: See above DISCHARGE CONDITION: [Stable]. TIME SPENT ON DISCHARGE: Greater than 20 minutes. Vital Signs/I&Os Vital Signs Date Time Temp Pulse Resp B/P (MAP) Pulse Ox O2 Delivery O2 Flow Rate FiO2 03/17/20 08:50 134/68 03/17/20 06:00 97.3 63 18 98 Room Air 03/15/20 12:11 10 I&O- Last 24 Hours up to 6 AM 03/17/20 06:00 Intake Total 2930 ml Output Total 2400 ml Balance 530 ml Laboratory Data Labs 24H Laboratory Tests 2 03/16/20 16:35: Bedside Glucose (Misc Panel) 307H 03/16/20 20:34: Bedside Glucose (Misc Panel) 202H 03/17/20 05:34: Immature Granulocyte % (Auto) 0.7, Neutrophils (%) (Auto) 69.3H, Lymphocytes (%) (Auto) 17.4L, Monocytes (%) (Auto) 11.3H, Eosinophils (%) (Auto) 1.0, Basophils (%) (Auto) 0.3, Neutrophils # (Auto) 4.7, Lymphocytes # (Auto) 1.2L, Monocytes # (Auto) 0.8, Eosinophils # (Auto) 0.1, Basophils # (Auto) 0.0, Nucleated Red Blood Cells % (auto) 0.0, Anion Gap 6L, Glomerular Filtration Rate > 60.0, Calcium Level 8.8, Magnesium Level 1.9 CBC/BMP Laboratory Tests 03/17/20 05:34 FSBS Laboratory Tests Test 03/16/20 16:35 03/16/20 20:34 Range/Units Bedside Glucose (Misc Panel) 307 202 83-110 MG/DL Discharge Medications Scheduled Aspirin (Aspirin EC) 81 Mg Tablet.dr, 81 MG PO DAILY Atorvastatin Calcium (Atorvastatin Calcium) 40 Mg Tablet, 1 TAB PO DAILY Benazepril HCl (Benazepril HCl) 5 Mg Tablet, 5 MG PO DAILY Clopidogrel Bisulfate (Plavix) 75 Mg Tablet, 1 TAB PO DAILY Empagliflozin (Jardiance) 25 Mg Tablet, 25 MG PO DAILY, (Reported) Glipizide (Glipizide) 5 Mg Tablet, 5 MG PO QHS, (Reported) Glipizide (Glipizide) 5 Mg Tablet, 2.5 MG PO QAM, (Reported) Insulin Glargine,Hum.rec.anlog (Lantus Solostar) 100 Unit/1 Ml Insuln.pen, 60 UNITS SC QAM, (Reported) Sitagliptin Phosphate (Januvia) 100 Mg Tablet, 100 MG PO QAM, (Reported) Scheduled PRN Oxycodone HCl/Acetaminophen (Oxycodone-Acetaminophen 5-325) 1 Each Tablet, 1 TAB PO Q4H PRN for pain [prebiotic] , 1 PO PRN PRN for BOWEL CARE/CONSTIPATION, (Reported) Allergies Coded Allergies: clindamycin (Verified Adverse Reaction, Mild, UPSET STOMACH, VOMITING, 02/11/20) GOLDEN JOHNSON DO March 17, 2020 16:15
== END 2020-03-17 10:49 | disposition home or self-care (01) | DRG 254 ==
LOC: M OR 06:15 → M MSPAV 13:50
PROVIDERS: ADMIT Surgery Vascular Surgery; ATTEND Surgery Vascular Surgery
PROC: 041K0KL Bypass Right Femoral Artery to Popliteal Artery with Nonautologous Tissue Substitute, Open Approach (ICD-10-PCS; 2020-03-15)
PROC: 04UK0KZ Supplement Right Femoral Artery with Nonautologous Tissue Substitute, Open Approach (ICD-10-PCS; 2020-03-15)
PROC: 04CK0ZZ Extirpation of Matter from Right Femoral Artery, Open Approach (ICD-10-PCS; principal; 2020-03-15 07:30)
DX: E11.51 Type 2 diabetes mellitus with diabetic peripheral angiopathy without gangrene (principal); I70.235 Atherosclerosis of native arteries of right leg with ulceration of other part of foot; E11.610 Type 2 diabetes mellitus with diabetic neuropathic arthropathy; E78.5 Hyperlipidemia, unspecified; F17.210 Nicotine dependence, cigarettes, uncomplicated; I10 Essential (primary) hypertension; Z89.612 Acquired absence of left leg above knee; Z89.421 Acquired absence of other right toe(s); Z85.038 Personal history of other malignant neoplasm of large intestine; Z90.49 Acquired absence of other specified parts of digestive tract; Z92.21 Personal history of antineoplastic chemotherapy; Z92.3 Personal history of irradiation; Z79.82 Long term (current) use of aspirin; Z79.4 Long term (current) use of insulin; Z79.899 Other long term (current) drug therapy; Z88.1 Allergy status to other antibiotic agents; Z11.59 Encounter for screening for other viral diseases

== ENCOUNTER → 2020-04-06 | Outpatient (REF) | payer MEDICARE, OTHER ==
[~2020-04-06] MED LIST changes: +ATOR40TA75 PO; -LIDOCAINE 1% MDV 20ML VIAL SQ PRN; -LR 1,000 ML IV ONE; +PLAV1TAB2 PO; -ceFAZolin SOD 2 GM in IV 1 EA IV ONE
[2020-04-06 13:40] LABS: HEMOGLOBIN A1c 9.3 %
== END ==
LOC: M PLALAB 11:15
PROVIDERS: ATTEND Internal Medicine
DX: E11.3553 Type 2 diabetes mellitus with stable proliferative diabetic retinopathy, bilateral (principal); I10 Essential (primary) hypertension

== ENCOUNTER → 2020-04-28 | Outpatient (CLI) | payer MEDICARE, OTHER ==
--- NOTE | 2020-04-28 16:26 | REP ---
Bilateral lower extremity duplex Doppler arterial evaluation. Real-time ultrasound evaluation and duplex Doppler interrogation of bilateral lower extremity arterial systems is performed. The patient has a history of left above the knee amputation. There is also a history of right femoral popliteal bypass graft March 2020. Atherosclerotic plaque is seen in the common femoral and superficial femoral arteries. Right femoral popliteal bypass graft is patent with normal flow velocities proximally, but slow flow velocities in the distal portion at 34-35 cm/s in the distal graft and at the anastomosis, with monophasic waveforms throughout. Monophasic waveforms are also seen in the resighini common femoral, superficial femoral, and posterior tibial arteries. Calf arteries are very small with diffuse significant calcifications, with slow flow. These very small vessels likely cause restriction of outflow for the bypass graft. There is occlusion of the resighini distal right superficial femoral artery and popliteal artery. There is reversal of flow in the distal anterior tibial artery suggesting a more proximal occlusion/stenosis. Posterior tibial artery is patent into the foot. Left common femoral artery demonstrates plaque with occlusion of the proximal left superficial femoral artery. Peak systolic velocity of the left common femoral artery is 124 cm/s. Velocities of the right lower extremity arteria vessels are as follows: Right Peak Systolic Velocity Common femoral artery 161 cm/s Profunda 113 cm/s Proximal SFA 80 cm/s Mid SFA 50 cm/s Distal SFA occluded Popliteal occluded Proximal G[place]O 69 cm/s Proximal QUALITY ASSURANCE PROJECT MANAGER 14 cm/s Distal QUALITY ASSURANCE PROJECT MANAGER 51 cm/s Distal GUA[place]O 17 cm/s, reversed Electronically Signed by Theo Burton MD 04/28/2020 07:42 P
== END ==
LOC: M RAD 12:38
PROVIDERS: ATTEND Physician Assistant
DX: I70.234 Atherosclerosis of native arteries of right leg with ulceration of heel and midfoot (principal); I70.203 Unspecified atherosclerosis of native arteries of extremities, bilateral legs; Z95.828 Presence of other vascular implants and grafts

== ENCOUNTER → 2020-08-30 | Outpatient (REF) | payer MEDICARE, OTHER ==
[2020-08-30 17:49] LABS: HEMATOCRIT 49.3 % (42.0-52.0); HEMOGLOBIN 14.8 g/dl (13.5-17.5); MEAN CORPUSCULAR HEMOGLOBIN 28.7 pg (27.0-33.0); MEAN CORPUSCULAR VOLUME 95.5 fl (80.0-96.0); PLATELET COUNT, AUTOMATED 211 10^3/uL (150-450); RED BLOOD COUNT 5.16 10^6/uL (4.30-6.10); WHITE BLOOD COUNT 6.6 10^3/uL (4.0-10.0)
[2020-08-30 18:12] LABS: HEMOGLOBIN A1c 9.4 %
[2020-08-30 18:27] LABS: ALBUMIN 3.7 GM/DL (3.2-5.2); ALT/SGPT 32 U/L (12-78); BILIRUBIN,TOTAL 0.6 MG/DL (0.2-1.0); BLOOD UREA NITROGEN 13 MG/DL (7-18); CALCIUM LEVEL 9.2 MG/DL (8.8-10.2); CARBON DIOXIDE LEVEL 29 MEQ/L (21-32); CHLORIDE LEVEL 109 MEQ/L (98-107); CHOLESTEROL LEVEL 152 MG/DL (<200); CHOLESTEROL RISK RATIO 3.454 (<5); GLOMERULAR FILTRATION RATE > 60.0 (>42); GLUCOSE, FASTING 112 MG/DL (70-100); HDL CHOLESTEROL 44 MG/DL (>40); LDL CHOLESTEROL 70 MG/DL (<100); MAGNESIUM LEVEL 2.3 MG/DL (1.8-2.4); NON-HDL-C 108 MG/DL; POTASSIUM SERUM 4.8 MEQ/L (3.5-5.1); SODIUM LEVEL 144 MEQ/L (136-145); TOTAL PROTEIN 7.2 GM/DL (6.4-8.2); TRIGLYCERIDES LEVEL 188 MG/DL (<150)
== END ==
LOC: M PLALAB 13:52
PROVIDERS: ATTEND Internal Medicine
DX: Z79.899 Other long term (current) drug therapy (principal); Z85.038 Personal history of other malignant neoplasm of large intestine; I10 Essential (primary) hypertension; E78.00 Pure hypercholesterolemia, unspecified

== ENCOUNTER 2020-09-16 12:03 | Emergency (ER) | payer MEDICARE, OTHER ==
[~2020-09-16] VITALS: Ht 177.8 cm; Wt 78.8 kg
[2020-09-16 13:40] LABS: BASO % 0.4 % (0.0-1.0); EOS % 0.4 % (0.0-3.0); HEMATOCRIT 43.6 % (42.0-52.0); HEMOGLOBIN 13.6 g/dl (13.5-17.5); LYMPH # 0.9 10^3/uL (1.5-5.0); MEAN CORPUSCULAR HGB CONC 31.2 g/dl (32.0-36.5); MONO # 0.7 10^3/uL (0.0-0.8); MONO % 9.1 % (0.0-5.0); NEUTROPHILS # 5.6 10^3/uL (1.5-8.5); NEUTROPHILS % 77.5 % (36.0-66.0); PLATELET COUNT, AUTOMATED 236 10^3/uL (150-450); RED BLOOD COUNT 4.69 10^6/uL (4.30-6.10); WHITE BLOOD COUNT 7.3 10^3/uL (4.0-10.0)
--- NOTE | 2020-09-16 13:49 | REP ---
INDICATION: DYSPNEA/COUGH. COMPARISON: Comparison chest x-ray February 18, 2018.. TECHNIQUE: Upright AP portable radiograph. FINDINGS: The lungs are symmetrically aerated and free of infiltrate. The pleural angles are sharp. Heart size is normal. The thoracic aorta is somewhat calcific. Pulmonary vasculature is not increased. There is an old healed rib fracture on each side. No acute bony abnormality. IMPRESSION: No active cardiopulmonary disease. <Electronically signed by Eleazar Winslow > 09/16/20 [id number]
[2020-09-16 13:50] LABS: INR 0.99; PROTHROMBIN TIME 13.3 SECONDS (12.5-14.3)
[2020-09-16 14:11] LABS: ERYTHROCYTE SEDIMENTATION RATE 48 mm/hr (0-20)
[2020-09-16 14:15] LABS: ALBUMIN 3.1 GM/DL (3.2-5.2); ALT/SGPT 26 U/L (12-78); BILIRUBIN,DIRECT 0.2 MG/DL (0.0-0.2); BILIRUBIN,TOTAL 0.7 MG/DL (0.2-1.0); BLOOD UREA NITROGEN 16 MG/DL (7-18); C REACTIVE PROTEIN QUANTITATIV 1.39 MG/DL (0.00-0.30); CALCIUM LEVEL 9.3 MG/DL (8.8-10.2); CARBON DIOXIDE LEVEL 27 MEQ/L (21-32); CHLORIDE LEVEL 106 MEQ/L (98-107); CK-MB VALUE MASS < 1.0 NG/ML (<3.6); CPK CREATINE PHOSPHOKINASE 51 U/L (39-308); CREATININE FOR GFR 0.93 MG/DL (0.70-1.30); GLOMERULAR FILTRATION RATE > 60.0 (>42); GLUCOSE, FASTING 186 MG/DL (70-100); MB/CK RELATIVE INDEX 1.96 (< OR =4); POTASSIUM SERUM 4.3 MEQ/L (3.5-5.1); SODIUM LEVEL 141 MEQ/L (136-145); THYROID STIMULATING HORMONE 0.712 uIU/ML (0.358-3.740); TOTAL PROTEIN 6.8 GM/DL (6.4-8.2); TROPONIN I < 0.02 NG/ML (< 0.10)
[2020-09-16 17:15] VITALS: BP 132/64
--- NOTE | 2020-09-16 19:03 | ECGEPIP ---
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
== END 2020-09-16 17:35 | disposition short-term general hospital (02) ==
LOC: M ED 12:03
DX: I70.235 Atherosclerosis of native arteries of right leg with ulceration of other part of foot (principal); R00.1 Bradycardia, unspecified; E11.9 Type 2 diabetes mellitus without complications; I10 Essential (primary) hypertension; I73.9 Peripheral vascular disease, unspecified; F17.200 Nicotine dependence, unspecified, uncomplicated; Z79.82 Long term (current) use of aspirin; Z79.4 Long term (current) use of insulin; Z79.899 Other long term (current) drug therapy; Z88.1 Allergy status to other antibiotic agents
CPT/HCPCS: 71045; 80048; 80076; 82550; 82553; 84443; 84484; 85025; 85610; 85652; 86140; 87040; 87070; 87077; 87186; 93005; 93041; 94760; 99285; U0002

== ENCOUNTER → 2021-01-05 | Outpatient (REF) | payer MEDICARE, OTHER ==
[~2021-01-05] MED LIST changes: +ASPI-569 PO; -ASPI81TAEC PO; -CLIN150C14 PO; +CLIN150C15 PO; +XARE10TA PO
[2021-01-05 17:55] LABS: HEMOGLOBIN A1c 10.4 %
[2021-01-05 18:08] LABS: ALBUMIN 3.5 GM/DL (3.2-5.2); ALT/SGPT 33 U/L (12-78); BILIRUBIN,TOTAL 0.6 MG/DL (0.2-1.0); BLOOD UREA NITROGEN 20 MG/DL (7-18); CALCIUM LEVEL 8.7 MG/DL (8.8-10.2); CARBON DIOXIDE LEVEL 24 MEQ/L (21-32); CHLORIDE LEVEL 108 MEQ/L (98-107); CHOLESTEROL LEVEL 136 MG/DL (<200); CHOLESTEROL RISK RATIO 3.487 (<5); CREATININE FOR GFR 1.05 MG/DL (0.70-1.30); GLOMERULAR FILTRATION RATE > 60.0 (>42); GLUCOSE, FASTING 228 MG/DL (70-100); HDL CHOLESTEROL 39 MG/DL (>40); LDL CHOLESTEROL 53 MG/DL (<100); NON-HDL-C 97 MG/DL; POTASSIUM SERUM 4.2 MEQ/L (3.5-5.1); SODIUM LEVEL 139 MEQ/L (136-145); TOTAL PROTEIN 7.2 GM/DL (6.4-8.2); TRIGLYCERIDES LEVEL 219 MG/DL (<150)
== END ==
LOC: M SFHCPLAZ 14:25
PROVIDERS: ATTEND Internal Medicine
DX: E11.3553 Type 2 diabetes mellitus with stable proliferative diabetic retinopathy, bilateral (principal); E78.00 Pure hypercholesterolemia, unspecified
CPT/HCPCS: 36415; 80053; 80061; 83036; G0463

== ENCOUNTER → 2021-02-15 | Outpatient (CLI) | payer MEDICARE, OTHER ==
[~2021-02-15] MED LIST changes: +GASTROGRAFIN SOLUTION 30ML (Q9963) As Ordered ONE; +ISOVUE-370 76% 100ML VIAL As Ordered ONE
[2021-02-15 13:42] LABS: BASO % 0.7 % (0.0-1.0); EOS # 0.1 10^3/uL (0.0-0.5); HEMATOCRIT 43.6 % (42.0-52.0); HEMOGLOBIN 13.4 g/dl (13.5-17.5); LYMPH % 17.8 % (24.0-44.0); MEAN CORPUSCULAR HEMOGLOBIN 27.7 pg (27.0-33.0); MEAN CORPUSCULAR HGB CONC 30.7 g/dl (32.0-36.5); MEAN CORPUSCULAR VOLUME 90.3 fl (80.0-96.0); MONO # 0.5 10^3/uL (0.0-0.8); MONO % 8.6 % (2.0-8.0); NEUTROPHILS # 3.9 10^3/uL (1.5-8.5); NEUTROPHILS % 70.4 % (36.0-66.0); PLATELET COUNT, AUTOMATED 206 10^3/uL (150-450); RED BLOOD COUNT 4.83 10^6/uL (4.30-6.10); WHITE BLOOD COUNT 5.6 10^3/uL (4.0-10.0)
--- NOTE | 2021-02-15 14:02 | REP ---
INDICATION: COLON CA PT HAS LABS FIRST THEN CT. COMPARISON: 08/19/2019 and 07/16/2019 TECHNIQUE: 100 cc Isovue 370 intravenously FINDINGS: The liver, gallbladder, spleen, pancreas, adrenal glands, and kidneys are stable. The abdominal aorta and para-aortic regions are stable. There is mild dilatation of multiple small bowel loops with a transition seen in the right lower quadrant. This represents a change. There is no evidence of intestinal obstruction. The colonic bowel loops are essentially unchanged. Postoperative changes near the appendix flexure region noted status quo. There is no free fluid or free air. There is no evidence of a mass or adenopathy. In the left upper quadrant mesentery there is an unchanged area of suspected fat necrosis. There is no significant change in appearance of the imaged osseous structures. IMPRESSION: The only significant change between today's exam and the latest prior exam are the findings involving the small bowel. The small bowel loops are mildly dilated with a transition seen in the right lower quadrant without evidence of saravanan intestinal obstruction. The finding is likely transient but should be correlated clinically with appropriate follow-up if necessary. <Electronically signed by Jerrell Ruiz > 02/15/21 [id number]
--- NOTE | 2021-02-15 14:13 | REP ---
INDICATION: COLON CA PT HAS LABS FIRST THEN CT. COMPARISON: Multiple the latest 07/16/2019 TECHNIQUE: Standard contrast-enhanced helical CT of the chest after the intravenous administration of 100 cc Isovue 370. FINDINGS: No mediastinal or hilar adenopathy has developed. There are no pleural or pericardial effusions. There is no significant change in the appearance of the imaged osseous structures. Note is again made of a small vertebral body lesion in T3. Evaluation of the lung worrell shows no new abnormal nodules, masses, or opacities. There is a tiny focus of incidental subsegmental atelectatic change in the right CP angle. IMPRESSION: No evidence of acute disease or significant change as described above. <Electronically signed by Jerrell Ruiz > 02/15/21 [id number]
[2021-02-15 14:24] LABS: ALBUMIN 3.4 GM/DL (3.2-5.2); ALT/SGPT 51 U/L (12-78); BILIRUBIN,TOTAL 0.8 MG/DL (0.2-1.0); BLOOD UREA NITROGEN 17 MG/DL (7-18); CARBON DIOXIDE LEVEL 25 MEQ/L (21-32); CHLORIDE LEVEL 107 MEQ/L (98-107); CREATININE FOR GFR 0.92 MG/DL (0.70-1.30); FERRITIN 36 NG/ML (26-388); GLOMERULAR FILTRATION RATE > 60.0 (>42); GLUCOSE, FASTING 279 MG/DL (70-100); IMMUNOGLOBULIN G 1040 MG/DL (681-1648); IMMUNOGLOBULIN M 25.9 MG/DL (40-230); IRON (FE) 66 UG/DL (65-175); PERCENT SATURATION 20.4 % (19.7-50.0); SODIUM LEVEL 141 MEQ/L (136-145); TOTAL IRON BINDING CAPACITY 323 UG/DL (250-450); TOTAL PROTEIN 6.7 GM/DL (6.4-8.2)
[2021-02-16 18:10] LABS: FREE KAPPA LIGHT CHAINS SERUM 34.6 mg/L (3.3-19.4); FREE LAMBDA LIGHT CHAINS SERUM 21.1 mg/L (5.7-26.3); KAPPA/LAMBDA RATIO SERUM 1.64 (0.26-1.65)
[2021-02-17 10:28] LABS: ALBUMIN 3.66 GM/DL (3.29-5.55); ALBUMIN % 54.6 % (55.8-66.1); ALPHA-1-GLOBULIN % 4.7 % (2.9-4.9); ALPHA-1-GLOBULINS 0.31 GM/DL (0.17-0.41); ALPHA-2-GLOBULINS 0.96 GM/DL (0.42-0.99); ALPHA-2-GLOBULINS % 14.3 % (7.1-11.8); BETA-2-GLOBULINS 0.42 GM/DL (0.19-0.55); BETA-2-GLOBULINS % 6.2 % (3.2-6.5)
[2021-02-17 10:29] LABS: GAMMA GLOBULIN % 14.2 % (11.1-18.8); GAMMA GLOBULINS 0.95 GM/DL (0.65-1.58)
== END ==
LOC: M LAB 11:32 → M RAD 11:32
PROVIDERS: ATTEND Internal Medicine Medical Oncology
DX: Z85.038 Personal history of other malignant neoplasm of large intestine (principal); D50.9 Iron deficiency anemia, unspecified
CPT/HCPCS: 36415; 71260; 74177; 80053; 82728; 82784; 83550; 83883; 84165; 85025; Q9963; Q9967

== ENCOUNTER → 2021-05-10 | Outpatient (CLI) | payer MEDICARE, OTHER ==
[~2021-05-10] MED LIST changes: +CVS1CAP2 PO; -GASTROGRAFIN SOLUTION 30ML (Q9963) As Ordered ONE; -ISOVUE-370 76% 100ML VIAL As Ordered ONE
[2021-05-10 13:26] LABS: BASO % 0.6 % (0.0-1.0); EOS # 0.1 10^3/uL (0.0-0.5); EOS % 1.1 % (0.0-3.0); HEMATOCRIT 47.1 % (42.0-52.0); HEMOGLOBIN 14.8 g/dl (13.5-17.5); LYMPH # 1.5 10^3/uL (1.5-5.0); LYMPH % 22.8 % (24.0-44.0); MEAN CORPUSCULAR HEMOGLOBIN 29.4 pg (27.0-33.0); MEAN CORPUSCULAR HGB CONC 31.4 g/dl (32.0-36.5); MEAN CORPUSCULAR VOLUME 93.6 fl (80.0-96.0); MONO # 0.6 10^3/uL (0.0-0.8); MONO % 8.4 % (2.0-8.0); NEUTROPHILS # 4.4 10^3/uL (1.5-8.5); NEUTROPHILS % 66.6 % (36.0-66.0); PLATELET COUNT, AUTOMATED 241 10^3/uL (150-450); RED BLOOD COUNT 5.03 10^6/uL (4.30-6.10); WHITE BLOOD COUNT 6.7 10^3/uL (4.0-10.0)
[2021-05-10 13:48] LABS: ALBUMIN 3.6 GM/DL (3.2-5.2); ALT/SGPT 42 U/L (12-78); BILIRUBIN,TOTAL 0.9 MG/DL (0.2-1.0); BLOOD UREA NITROGEN 15 MG/DL (7-18); CALCIUM LEVEL 9.2 MG/DL (8.8-10.2); CARBON DIOXIDE LEVEL 27 MEQ/L (21-32); CHLORIDE LEVEL 106 MEQ/L (98-107); CHOLESTEROL LEVEL 116 MG/DL (<200); CHOLESTEROL RISK RATIO 3.135 (<5); CREATININE FOR GFR 0.85 MG/DL (0.70-1.30); GLOMERULAR FILTRATION RATE > 60.0 (>42); GLUCOSE, FASTING 90 MG/DL (70-100); HDL CHOLESTEROL 37 MG/DL (>40); LDL CHOLESTEROL 49 MG/DL (<100); MAGNESIUM LEVEL 2.3 MG/DL (1.8-2.4); NON-HDL-C 79 MG/DL; POTASSIUM SERUM 4.5 MEQ/L (3.5-5.1); SODIUM LEVEL 140 MEQ/L (136-145); TRIGLYCERIDES LEVEL 152 MG/DL (<150)
== END ==
LOC: M PLALAB 11:06
PROVIDERS: ATTEND Internal Medicine
DX: E11.3553 Type 2 diabetes mellitus with stable proliferative diabetic retinopathy, bilateral (principal); E78.00 Pure hypercholesterolemia, unspecified; I10 Essential (primary) hypertension; Z85.038 Personal history of other malignant neoplasm of large intestine

== ENCOUNTER → 2021-08-15 | Outpatient (CLI) | payer MEDICARE, OTHER ==
[~2021-08-15] MED LIST changes: -CLIN150C15 PO; +CLIN150C17 PO; -DOXY100C PO; +DOXY100C3 PO
== END ==
LOC: M RAD 12:32
PROVIDERS: ATTEND Internal Medicine Medical Oncology
DX: C18.9 Malignant neoplasm of colon, unspecified (principal); Z53.9 Procedure and treatment not carried out, unspecified reason

== ENCOUNTER → 2021-12-06 | Outpatient (CLI) | payer MEDICARE, OTHER ==
[~2021-12-06] MED LIST changes: +BENA-8 PO; +BENA1TAB23 PO; -BENA20TA8 PO; -BENA5TA PO
== END ==
LOC: M RAD 11:16
PROVIDERS: ATTEND Internal Medicine Medical Oncology
DX: C18.9 Malignant neoplasm of colon, unspecified (principal); K57.90 Diverticulosis of intestine, part unspecified, without perforation or abscess without bleeding; Z98.890 Other specified postprocedural states
CPT/HCPCS: 71260; 74177; Q9963; Q9967

== ENCOUNTER → 2022-04-12 | Outpatient (CLI) | payer MEDICARE, OTHER ==
[~2022-04-12] MED LIST changes: +SEMA7TAB2 PO
[2022-04-12 13:43] LABS: BASO % 0.5 % (0.0-1.0); EOS # 0.1 10^3/uL (0.0-0.5); EOS % 1.2 % (0.0-3.0); HEMATOCRIT 45.7 % (42.0-52.0); HEMOGLOBIN 14.4 g/dl (13.5-17.5); LYMPH # 1.6 10^3/uL (1.5-5.0); LYMPH % 21.2 % (24.0-44.0); MEAN CORPUSCULAR HEMOGLOBIN 29.3 pg (27.0-33.0); MEAN CORPUSCULAR HGB CONC 31.5 g/dl (32.0-36.5); MEAN CORPUSCULAR VOLUME 93.1 fl (80.0-96.0); MONO # 0.5 10^3/uL (0.0-0.8); MONO % 7.1 % (2.0-8.0); NEUTROPHILS # 5.1 10^3/uL (1.5-8.5); NEUTROPHILS % 69.3 % (36.0-66.0); PLATELET COUNT, AUTOMATED 218 10^3/uL (150-450); RED BLOOD COUNT 4.91 10^6/uL (4.30-6.10); WHITE BLOOD COUNT 7.4 10^3/uL (4.0-10.0)
[2022-04-12 14:08] LABS: ALBUMIN 3.4 GM/DL (3.2-5.2); ALT/SGPT 61 U/L (12-78); BILIRUBIN,TOTAL 0.5 MG/DL (0.2-1.0); BLOOD UREA NITROGEN 18 MG/DL (7-18); CALCIUM LEVEL 9.1 MG/DL (8.8-10.2); CARBON DIOXIDE LEVEL 25 MEQ/L (21-32); CHLORIDE LEVEL 109 MEQ/L (98-107); CREATININE FOR GFR 0.96 MG/DL (0.70-1.30); GLOMERULAR FILTRATION RATE > 60.0 (>42); GLUCOSE, FASTING 221 MG/DL (70-100); MAGNESIUM LEVEL 2.2 MG/DL (1.8-2.4); POTASSIUM SERUM 4.5 MEQ/L (3.5-5.1); SODIUM LEVEL 142 MEQ/L (136-145)
[2022-04-12 14:14] LABS: CREATININE, URINE 36.7 MG/DL; MALB URINE SIEMENS < 5.0 MG/L; MAU/CREAT RATIO 13.6 MCG/MG (0.0-30.0)
== END ==
LOC: M PLALAB 11:14
PROVIDERS: ATTEND Internal Medicine
DX: E11.3553 Type 2 diabetes mellitus with stable proliferative diabetic retinopathy, bilateral (principal); I10 Essential (primary) hypertension; D50.8 Other iron deficiency anemias

== ENCOUNTER → 2022-04-17 | Outpatient (CLI) | payer MEDICARE, OTHER ==
[2022-04-17 11:31] LABS: HEMOGLOBIN A1c 8.7 %
== END ==
LOC: M PLALAB 08:52
PROVIDERS: ATTEND Internal Medicine
DX: E11.3553 Type 2 diabetes mellitus with stable proliferative diabetic retinopathy, bilateral (principal)

== ENCOUNTER → 2022-04-17 | Outpatient (REF) | payer MEDICARE, OTHER | LOC: M SFHCPLAZ 08:23 | PROVIDERS: ATTEND Internal Medicine | DX: E11.3553 Type 2 diabetes mellitus with stable proliferative diabetic retinopathy, bilateral (principal) ==

== ENCOUNTER → 2022-06-15 | Outpatient (REF) | payer MEDICARE, OTHER ==
[~2022-06-15] MED LIST changes: +SIMV-253 PO; -ZOCO20TA PO
== END ==
LOC: M LAB REF 13:03
PROVIDERS: ATTEND Ophthalmology
DX: Z01.812 Encounter for preprocedural laboratory examination (principal); H25.041 Posterior subcapsular polar age-related cataract, right eye; H25.011 Cortical age-related cataract, right eye; H25.11 Age-related nuclear cataract, right eye; Z20.822 Contact with and (suspected) exposure to COVID-19

== ENCOUNTER 2023-02-09 04:25 | Emergency (ER) | payer MEDICARE, OTHER ==
[~2023-02-09] VITALS: Ht 177.8 cm; Wt 78.6 kg
[~2023-02-09 04:25] MED LIST changes: +CLOP75TA99 PO; -PLAV1TAB2 PO
[2023-02-09] MEDS ORDERED: TRUL10IN SC (04:36)
[2023-02-09] MEDS ORDERED: GLIP5TAB8 PO (04:36)
[2023-02-09] MEDS ORDERED: FERR325T3 PO (04:38)
[2023-02-09 06:30] VITALS: BP 115/56
[2023-02-09] MEDS ORDERED: CETI-24 PO (06:32)
[2023-02-09] MEDS ORDERED: TRIA1CR80 TOP (06:32)
== END 2023-02-09 06:44 | disposition home or self-care (01) ==
LOC: M ED 04:25
DX: R21 Rash and other nonspecific skin eruption (principal); E11.9 Type 2 diabetes mellitus without complications; I73.9 Peripheral vascular disease, unspecified; Z85.038 Personal history of other malignant neoplasm of large intestine; Z79.82 Long term (current) use of aspirin; Z79.4 Long term (current) use of insulin; Z79.899 Other long term (current) drug therapy; Z88.1 Allergy status to other antibiotic agents

== ENCOUNTER 2023-02-12 10:24 | Emergency (ER) | payer MEDICARE, OTHER ==
[~2023-02-12] VITALS: Ht 177.8 cm; Wt 78.6 kg
[~2023-02-12 10:24] MED LIST changes: +CETI-24 PO; +TRIA1CR80 TOP; +TRUL10IN SC
[2023-02-12 10:26] VITALS: BP 125/56
[2023-02-12] MEDS ORDERED: DIPH2.5T15 (10:47)
[2023-02-12] MEDS ORDERED: ELIM5CRE2 TOP (12:20)
[2023-02-12] MEDS ORDERED: PRED20TA PO (12:20)
== END 2023-02-12 12:31 | disposition home or self-care (01) ==
LOC: M ED 10:24
DX: R21 Rash and other nonspecific skin eruption (principal); E11.9 Type 2 diabetes mellitus without complications; E78.5 Hyperlipidemia, unspecified; Z85.038 Personal history of other malignant neoplasm of large intestine; Z90.49 Acquired absence of other specified parts of digestive tract; Z87.891 Personal history of nicotine dependence; Z79.4 Long term (current) use of insulin; Z79.01 Long term (current) use of anticoagulants; Z79.899 Other long term (current) drug therapy; Z88.1 Allergy status to other antibiotic agents

== ENCOUNTER 2023-02-25 08:39 | Emergency (ER) | payer MEDICARE, OTHER ==
[~2023-02-25] VITALS: Ht 177.8 cm; Wt 79.5 kg
[~2023-02-25 08:39] MED LIST changes: +DIPH2.5T15; +ELIM5CRE2 TOP; +PRED20TA PO
[2023-02-25 09:39] LABS: BASO % 0.4 % (0.0-1.0); EOS # 0.6 10^3/uL (0.0-0.5); EOS % 6.4 % (0.0-3.0); HEMATOCRIT 44.8 % (42.0-52.0); HEMOGLOBIN 14.1 g/dl (13.5-17.5); LYMPH # 0.9 10^3/uL (1.5-5.0); LYMPH % 9.7 % (24.0-44.0); MEAN CORPUSCULAR HEMOGLOBIN 29.1 pg (27.0-33.0); MEAN CORPUSCULAR HGB CONC 31.5 g/dl (32.0-36.5); MEAN CORPUSCULAR VOLUME 92.4 fl (80.0-96.0); MONO # 0.7 10^3/uL (0.0-0.8); MONO % 7.6 % (2.0-8.0); NEUTROPHILS # 6.8 10^3/uL (1.5-8.5); NEUTROPHILS % 75.1 % (36.0-66.0); PLATELET COUNT, AUTOMATED 183 10^3/uL (150-450); RED BLOOD COUNT 4.85 10^6/uL (4.30-6.10); WHITE BLOOD COUNT 9.1 10^3/uL (4.0-10.0)
[2023-02-25 09:45] LABS: ERYTHROCYTE SEDIMENTATION RATE 51 mm/hr (0-20)
[2023-02-25 10:15] VITALS: BP 130/62
[2023-02-25 10:22] LABS: ALKALINE PHOSPHATASE 156 U/L (46-116); ALT/SGPT 68 U/L (7.0-40); AST/SGOT 30 U/L (<34); BILIRUBIN,DIRECT 0.3 MG/DL (<0.4); BLOOD UREA NITROGEN 15 MG/DL (9-23); CALCIUM LEVEL 8.3 MG/DL (8.3-10.6); CARBON DIOXIDE LEVEL 23 MMOL/L (20-31); CHLORIDE LEVEL 106 MMOL/L (98-107); CREATININE FOR GFR 0.74 MG/DL (0.70-1.30); GLOMERULAR FILTRATION RATE > 60.0 (>42); GLUCOSE, FASTING 334 MG/DL (74-106); POTASSIUM SERUM 4.4 MMOL/L (3.5-5.1); SODIUM LEVEL 139 MMOL/L (136-145); TOTAL PROTEIN 6.5 G/DL (5.7-8.2)
[2023-02-25 10:27] LABS: FREE T4 0.89 NG/DL (0.89-1.76); THYROID STIMULATING HORMONE 1.171 uIU/ML (0.55-4.78)
== END 2023-02-25 10:58 | disposition home or self-care (01) ==
LOC: M ED 08:39
DX: L30.9 Dermatitis, unspecified (principal); R22.32 Localized swelling, mass and lump, left upper limb; E10.9 Type 1 diabetes mellitus without complications; Z79.4 Long term (current) use of insulin; Z79.01 Long term (current) use of anticoagulants; Z79.899 Other long term (current) drug therapy; Z88.1 Allergy status to other antibiotic agents

== ENCOUNTER → 2023-02-27 | Outpatient (REF) | payer MEDICARE, OTHER | LOC: M SFHCDERM 08:44 | PROVIDERS: ATTEND Physician Assistant | DX: R21 Rash and other nonspecific skin eruption (principal) ==

== ENCOUNTER → 2023-05-21 | Outpatient (CLI) | payer MEDICARE, OTHER ==
[2023-05-21 15:49] LABS: HEMATOCRIT 43.7 % (42.0-52.0); HEMOGLOBIN 13.6 g/dl (13.5-17.5); MEAN CORPUSCULAR HEMOGLOBIN 29.1 pg (27.0-33.0); MEAN CORPUSCULAR HGB CONC 31.1 g/dl (32.0-36.5); MEAN CORPUSCULAR VOLUME 93.4 fl (80.0-96.0); PLATELET COUNT, AUTOMATED 260 10^3/uL (150-450); RED BLOOD COUNT 4.68 10^6/uL (4.30-6.10); WHITE BLOOD COUNT 6.3 10^3/uL (4.0-10.0)
[2023-05-21 15:59] LABS: HEMOGLOBIN A1c 8.1 % (4.0-6.0)
[2023-05-21 16:08] LABS: TOTAL IRON BINDING CAPACITY 312 UG/DL (250-425)
[2023-05-21 16:09] LABS: ALBUMIN 3.3 G/DL (3.2-5.2); ALKALINE PHOSPHATASE 122 U/L (46-116); ALT/SGPT 47 U/L (7.0-40); AST/SGOT 24 U/L (<34); BILIRUBIN,TOTAL 0.7 MG/DL (0.3-1.2); BLOOD UREA NITROGEN 16 MG/DL (9-23); CALCIUM LEVEL 8.9 MG/DL (8.3-10.6); CARBON DIOXIDE LEVEL 27 MMOL/L (20-31); CHLORIDE LEVEL 106 MMOL/L (98-107); CHOLESTEROL LEVEL 108 MG/DL (<200); CHOLESTEROL RISK RATIO 3.21 (<5); CREATININE FOR GFR 0.69 MG/DL (0.70-1.30); GLOMERULAR FILTRATION RATE > 60.0 (>42); GLUCOSE, FASTING 65 MG/DL (74-106); HDL CHOLESTEROL 33.6 MG/DL (>40); IRON (FE) 132 UG/DL (65-175); LDL CHOLESTEROL 45.6 MG/DL (<100); MAU/CREAT RATIO 10.5 MCG/MG (0.0-30.0); NON-HDL-C 74.4 MG/DL; PERCENT SATURATION 42.3 % (19.7-50.0); POTASSIUM SERUM 4.2 MMOL/L (3.5-5.1); SODIUM LEVEL 143 MMOL/L (136-145); TOTAL PROTEIN 6.7 G/DL (5.7-8.2); TRIGLYCERIDES LEVEL 144 MG/DL (<150)
[2023-05-21 16:12] LABS: VITAMIN B12 LEVEL 502 PG/ML (211-911)
[2023-05-21 16:13] LABS: FERRITIN 86.1 NG/ML (10.5-307.3); THYROID STIMULATING HORMONE 3.404 uIU/ML (0.55-4.78)
== END ==
LOC: M PLALAB 14:13
PROVIDERS: ATTEND Internal Medicine Hematology
DX: E11.3553 Type 2 diabetes mellitus with stable proliferative diabetic retinopathy, bilateral (principal); D50.8 Other iron deficiency anemias; Z12.5 Encounter for screening for malignant neoplasm of prostate
CPT/HCPCS: 36415; 80053; 80061; 82043; 82306; 82607; 82728; 83036; 83550; 84439; 84443; 84466; 85027; 85046; 86140; G0103

== ENCOUNTER → 2023-11-15 | Outpatient (CLI) | payer MEDICARE, OTHER ==
[~2023-11-15] MED LIST changes: +GLIP5TAB17 PO; -GLIP5TAB8 PO
[2023-11-15 10:24] LABS: HEMATOCRIT 48.5 % (42.0-52.0); MEAN CORPUSCULAR HEMOGLOBIN 28.4 pg (27.0-33.0); MEAN CORPUSCULAR HGB CONC 30.9 g/dl (32.0-36.5); MEAN CORPUSCULAR VOLUME 91.9 fl (80.0-96.0); PLATELET COUNT, AUTOMATED 249 10^3/uL (150-450); RED BLOOD COUNT 5.28 10^6/uL (4.30-6.10); WHITE BLOOD COUNT 7.3 10^3/uL (4.0-10.0)
[2023-11-15 10:48] LABS: C REACTIVE PROTEIN QUANTITATIV < 0.40 MG/DL (<1.0)
[2023-11-15 10:49] LABS: THYROID STIMULATING HORMONE 2.355 uIU/ML (0.55-4.78); TOTAL 25(OH) VITAMIN D 37.4 NG/ML (20.0-100.0)
[2023-11-15 10:50] LABS: ALBUMIN 3.5 G/DL (3.2-5.2); ALKALINE PHOSPHATASE 140 U/L (46-116); ALT/SGPT 78 U/L (7.0-40); AST/SGOT 35 U/L (<34); BILIRUBIN,TOTAL 0.8 MG/DL (0.3-1.2); BLOOD UREA NITROGEN 22 MG/DL (9-23); CALCIUM LEVEL 9.2 MG/DL (8.3-10.6); CARBON DIOXIDE LEVEL 27 MMOL/L (20-31); CHLORIDE LEVEL 108 MMOL/L (98-107); CHOLESTEROL LEVEL 116 MG/DL (<200); CHOLESTEROL RISK RATIO 3.24 (<5); CREATININE FOR GFR 0.75 MG/DL (0.70-1.30); FREE T4 1.04 NG/DL (0.89-1.76); GLOMERULAR FILTRATION RATE > 60.0 (>42); GLUCOSE, FASTING 82 MG/DL (74-106); HDL CHOLESTEROL 35.7 MG/DL (>40); LDL CHOLESTEROL 53.7 MG/DL (<100); NON-HDL-C 80.3 MG/DL; POTASSIUM SERUM 4.7 MMOL/L (3.5-5.1); SODIUM LEVEL 144 MMOL/L (136-145); TOTAL PROTEIN 7.1 G/DL (5.7-8.2); TRIGLYCERIDES LEVEL 133 MG/DL (<150); VITAMIN B12 LEVEL 847 PG/ML (211-911)
[2023-11-15 10:52] LABS: CREATININE, URINE 73.4 MG/DL; MAU/CREAT RATIO 17.7 MCG/MG (0.0-30.0)
[2023-11-15 10:59] LABS: HEMOGLOBIN A1c 9.6 % (4.0-6.0)
== END ==
LOC: M PLALAB 08:20
PROVIDERS: ATTEND Internal Medicine Hematology
DX: E11.3553 Type 2 diabetes mellitus with stable proliferative diabetic retinopathy, bilateral (principal)

== ENCOUNTER → 2023-12-18 | Outpatient (CLI) | payer MEDICARE, OTHER | LOC: M RAD 14:27 | PROVIDERS: ATTEND Internal Medicine Hematology | DX: Z12.2 Encounter for screening for malignant neoplasm of respiratory organs (principal); Z87.891 Personal history of nicotine dependence; J47.9 Bronchiectasis, uncomplicated; R91.1 Solitary pulmonary nodule; I25.10 Atherosclerotic heart disease of native coronary artery without angina pectoris; I70.0 Atherosclerosis of aorta ==

== ENCOUNTER → 2023-12-24 | Outpatient (CLI) | payer MEDICARE, OTHER | LOC: M RAD 13:12 | PROVIDERS: ATTEND Internal Medicine Hematology | DX: I65.21 Occlusion and stenosis of right carotid artery (principal); I73.9 Peripheral vascular disease, unspecified ==

== ENCOUNTER → 2024-01-28 | Outpatient (CLI) | payer MEDICARE, OTHER ==
[2024-01-28 16:12] LABS: BASO # 0.1 10^3/uL (0.0-0.2); BASO % 0.6 % (0.0-1.0); EOS # 0.1 10^3/uL (0.0-0.5); EOS % 1.6 % (0.0-3.0); HEMATOCRIT 45.4 % (42.0-52.0); LYMPH # 1.5 10^3/uL (1.5-5.0); LYMPH % 17.7 % (24.0-44.0); MEAN CORPUSCULAR HEMOGLOBIN 28.5 pg (27.0-33.0); MEAN CORPUSCULAR HGB CONC 30.8 g/dl (32.0-36.5); MEAN CORPUSCULAR VOLUME 92.3 fl (80.0-96.0); MONO # 0.5 10^3/uL (0.0-0.8); MONO % 6.2 % (2.0-8.0); NEUTROPHILS # 6.2 10^3/uL (1.5-8.5); NEUTROPHILS % 72.3 % (36.0-66.0); PLATELET COUNT, AUTOMATED 289 10^3/uL (150-450); RED BLOOD COUNT 4.92 10^6/uL (4.30-6.10); WHITE BLOOD COUNT 8.6 10^3/uL (4.0-10.0)
[2024-01-28 16:31] LABS: ALBUMIN 3.3 G/DL (3.2-5.2); ALKALINE PHOSPHATASE 159 U/L (46-116); ALT/SGPT 43 U/L (7.0-40); AST/SGOT 25 U/L (<34); BILIRUBIN,TOTAL 0.4 MG/DL (0.3-1.2); BLOOD UREA NITROGEN 17 MG/DL (9-23); CALCIUM LEVEL 9.3 MG/DL (8.3-10.6); CARBON DIOXIDE LEVEL 26 MMOL/L (20-31); CHLORIDE LEVEL 108 MMOL/L (98-107); CREATININE FOR GFR 0.76 MG/DL (0.70-1.30); GLOMERULAR FILTRATION RATE > 60.0 (>42); GLUCOSE, FASTING 214 MG/DL (74-106); SODIUM LEVEL 142 MMOL/L (136-145); TOTAL PROTEIN 7.1 G/DL (5.7-8.2)
[2024-01-28 16:32] LABS: HEMOGLOBIN A1c 8.8 % (4.0-6.0)
[2024-01-28 16:34] LABS: FREE T4 1.08 NG/DL (0.89-1.76); THYROID STIMULATING HORMONE 1.243 uIU/ML (0.55-4.78)
== END ==
LOC: M PLALAB 14:37
PROVIDERS: ATTEND Internal Medicine Hematology
DX: E11.3553 Type 2 diabetes mellitus with stable proliferative diabetic retinopathy, bilateral (principal)

== ENCOUNTER → 2024-01-28 | Outpatient (CLI) | payer MEDICARE, OTHER | LOC: M RAD 13:00 | PROVIDERS: ATTEND Nurse Practitioner | DX: I73.9 Peripheral vascular disease, unspecified (principal); Z98.890 Other specified postprocedural states ==

== ENCOUNTER 2024-05-26 05:59 | Day surgery (SDC) | payer MEDICARE, OTHER ==
[~2024-05-26] VITALS: Ht 177.8 cm; Wt 77.6 kg
[~2024-05-26 05:59] MED LIST changes: +DIPH1TAB81; -DIPH2.5T15; +SITA50TAB PO
[2024-05-26] MEDS: TETRACAINE 0.5% OPHTH SOLN 4ML OS SCH (06:57)
[2024-05-26] MEDS: FLURBIPROFEN 0.03% OPHTH SOLN 2.5 ML OS SCH (06:58)
[2024-05-26] MEDS: ATROPINE SULFATE 1% OPHTH SOLN 2ML BTL OS SCH (06:58)
[2024-05-26] MEDS: PHENYLEPHRINE 2.5% OPHTH SOL 2ML OS SCH (06:58)
[2024-05-26] MEDS ORDERED: LR 1,000 ML IV SCH (07:00)
[2024-05-26] MEDS ORDERED: MIDAZOLAM INJ 2MG/2ML VIAL As Ordered ONE (07:22)
[2024-05-26] MEDS: LIDOCAINE 1% SDV 5ML VIAL As Ordered ONE (07:29)
[2024-05-26] MEDS: CEFUROXIME 1MG/0.1ML INTRACAMERAL INJ As Ordered ONE (07:30)
[2024-05-26 07:59] VITALS: BP 147/63; TEMP 97.1; O2SAT 97
== END 2024-05-26 08:15 | disposition home or self-care (01) ==
LOC: M SDC 05:59
PROVIDERS: ATTEND Ophthalmology
DX: H25.12 Age-related nuclear cataract, left eye (principal); E78.5 Hyperlipidemia, unspecified; E11.9 Type 2 diabetes mellitus without complications; I73.9 Peripheral vascular disease, unspecified; Z85.038 Personal history of other malignant neoplasm of large intestine; Z92.3 Personal history of irradiation; Z92.21 Personal history of antineoplastic chemotherapy; Z79.899 Other long term (current) drug therapy; Z79.82 Long term (current) use of aspirin; Z79.84 Long term (current) use of oral hypoglycemic drugs; Z79.4 Long term (current) use of insulin; K21.9 Gastro-esophageal reflux disease without esophagitis; L40.9 Psoriasis, unspecified
CPT/HCPCS: 66984; J0697; J2250; V2788

== ENCOUNTER → 2024-08-07 | Outpatient (CLI) | payer MEDICARE, OTHER ==
[~2024-08-07] MED LIST changes: +GLIP10TA15 PO; -GLIP10TA6 PO
== END ==
LOC: M RAD 09:22
PROVIDERS: ATTEND Nurse Practitioner
DX: I70.201 Unspecified atherosclerosis of native arteries of extremities, right leg (principal); Z95.820 Peripheral vascular angioplasty status with implants and grafts; Z89.612 Acquired absence of left leg above knee

== ENCOUNTER → 2024-08-12 | Outpatient (CLI) | payer MEDICARE, OTHER ==
[2024-08-12 13:26] LABS: BASO % 0.4 % (0.0-1.0); EOS # 0.1 10^3/uL (0.0-0.5); EOS % 0.9 % (0.0-3.0); HEMATOCRIT 48.4 % (42.0-52.0); HEMOGLOBIN 15.1 g/dl (13.5-17.5); LYMPH # 0.8 10^3/uL (1.5-5.0); LYMPH % 8.4 % (24.0-44.0); MEAN CORPUSCULAR HEMOGLOBIN 28.6 pg (27.0-33.0); MEAN CORPUSCULAR HGB CONC 31.2 g/dl (32.0-36.5); MEAN CORPUSCULAR VOLUME 91.7 fl (80.0-96.0); MONO # 0.7 10^3/uL (0.0-0.8); NEUTROPHILS # 7.7 10^3/uL (1.5-8.5); NEUTROPHILS % 82.9 % (36.0-66.0); PLATELET COUNT, AUTOMATED 200 10^3/uL (150-450); RED BLOOD COUNT 5.28 10^6/uL (4.30-6.10); WHITE BLOOD COUNT 9.3 10^3/uL (4.0-10.0)
[2024-08-12 14:10] LABS: CREATININE, URINE 106.7 MG/DL; MAU/CREAT RATIO 54.3 MCG/MG (0.0-30.0)
[2024-08-12 14:12] LABS: HEMOGLOBIN A1c 8.1 % (4.0-6.0)
[2024-08-12 14:32] LABS: ALBUMIN 3.4 G/DL (3.2-5.2); ALKALINE PHOSPHATASE 143 U/L (46-116); ALT/SGPT 28 U/L (7.0-40); AST/SGOT 24 U/L (<34); BILIRUBIN,TOTAL 1.1 MG/DL (0.3-1.2); BLOOD UREA NITROGEN 15 MG/DL (9-23); C REACTIVE PROTEIN QUANTITATIV < 0.40 MG/DL (<1.0); CALCIUM LEVEL 9.6 MG/DL (8.3-10.6); CARBON DIOXIDE LEVEL 30 MMOL/L (20-31); CHLORIDE LEVEL 104 MMOL/L (98-107); CHOLESTEROL LEVEL 109 MG/DL (<200); CHOLESTEROL RISK RATIO 3.17 (<5); CREATININE FOR GFR 0.83 MG/DL (0.70-1.30); FREE T4 1.28 NG/DL (0.89-1.76); GLOMERULAR FILTRATION RATE > 60.0 (>42); GLUCOSE, FASTING 162 MG/DL (74-106); HDL CHOLESTEROL 34.3 MG/DL (>40); LDL CHOLESTEROL 56.1 MG/DL (<100); NON-HDL-C 74.7 MG/DL; POTASSIUM SERUM 4.7 MMOL/L (3.5-5.1); SODIUM LEVEL 143 MMOL/L (136-145); THYROID STIMULATING HORMONE 1.087 uIU/ML (0.55-4.78); TOTAL PROTEIN 6.9 G/DL (5.7-8.2); TRIGLYCERIDES LEVEL 93 MG/DL (<150); VITAMIN B12 LEVEL 516 PG/ML (211-911)
== END ==
LOC: M PLALAB 08:35
PROVIDERS: ATTEND Internal Medicine Hematology
DX: E11.3553 Type 2 diabetes mellitus with stable proliferative diabetic retinopathy, bilateral (principal)

== ENCOUNTER → 2024-11-14 | Outpatient (CLI) | payer MEDICARE, OTHER ==
[2024-11-14 16:13] LABS: BASO % 0.4 % (0.0-1.0); EOS # 0.2 10^3/uL (0.0-0.5); EOS % 2.6 % (0.0-3.0); HEMOGLOBIN 14.4 g/dl (13.5-17.5); LYMPH # 1.5 10^3/uL (1.5-5.0); LYMPH % 16.7 % (24.0-44.0); MEAN CORPUSCULAR HEMOGLOBIN 29.1 pg (27.0-33.0); MEAN CORPUSCULAR VOLUME 91.1 fl (80.0-96.0); MONO # 0.7 10^3/uL (0.0-0.8); MONO % 7.4 % (2.0-8.0); NEUTROPHILS # 6.6 10^3/uL (1.5-8.5); NEUTROPHILS % 72.5 % (36.0-66.0); PLATELET COUNT, AUTOMATED 190 10^3/uL (150-450); RED BLOOD COUNT 4.94 10^6/uL (4.30-6.10); WHITE BLOOD COUNT 9.1 10^3/uL (4.0-10.0)
[2024-11-14 16:48] LABS: C REACTIVE PROTEIN QUANTITATIV < 0.50 MG/DL (<1.0); CREATININE, URINE 118.3 MG/DL; MAU/CREAT RATIO 6.7 MCG/MG (0.0-30.0)
[2024-11-14 16:49] LABS: ALBUMIN 3.4 G/DL (3.2-5.2); ALKALINE PHOSPHATASE 125 U/L (40-129); ALT/SGPT 27 U/L (7.0-40); AST/SGOT 23 U/L (<34); BILIRUBIN,TOTAL 1.1 MG/DL (0.3-1.2); BLOOD UREA NITROGEN 16 MG/DL (9-23); CALCIUM LEVEL 8.8 MG/DL (8.3-10.6); CARBON DIOXIDE LEVEL 27 MMOL/L (20-31); CHLORIDE LEVEL 111 MMOL/L (98-107); CHOLESTEROL LEVEL 106 MG/DL (<200); CHOLESTEROL RISK RATIO 3.01 (<5); GLOMERULAR FILTRATION RATE > 60.0 (>42); GLUCOSE, FASTING 75 MG/DL (74-106); HDL CHOLESTEROL 35.1 MG/DL (>40); LDL CHOLESTEROL 49.7 MG/DL (<100); NON-HDL-C 70.9 MG/DL; POTASSIUM SERUM 4.6 MMOL/L (3.5-5.1); SODIUM LEVEL 140 MMOL/L (136-145); TOTAL PROTEIN 6.6 G/DL (5.7-8.2); TRIGLYCERIDES LEVEL 106 MG/DL (<150)
[2024-11-14 16:50] LABS: THYROID STIMULATING HORMONE 1.731 uIU/ML (0.55-4.78); TOTAL 25(OH) VITAMIN D 19.6 NG/ML (20.0-100.0)
[2024-11-14 16:51] LABS: VITAMIN B12 LEVEL 443 PG/ML (211-911)
[2024-11-14 17:13] LABS: HEMOGLOBIN A1c 7.2 % (4.0-6.0)
== END ==
LOC: M PLALAB 12:41
PROVIDERS: ATTEND Internal Medicine Hematology
DX: E11.3553 Type 2 diabetes mellitus with stable proliferative diabetic retinopathy, bilateral (principal); Z79.899 Other long term (current) drug therapy

== ENCOUNTER → 2025-02-24 | Outpatient (CLI) | payer MEDICARE, OTHER ==
[~2025-02-24] MED LIST changes: -ELIM5CRE2 TOP; +GLIP2.5T46 PO; -GLIP2.5T6 PO; +PERM60CR8 TOP
== END ==
LOC: M RAD 12:46
PROVIDERS: ATTEND Student in an Organized Health Care Education/Training Program
DX: Z87.891 Personal history of nicotine dependence (principal)

== ENCOUNTER → 2025-03-04 | Outpatient (CLI) | payer MEDICARE, OTHER | LOC: M SOG 07:57 | PROVIDERS: ATTEND Physician Assistant | DX: M19.041 Primary osteoarthritis, right hand (principal); M19.042 Primary osteoarthritis, left hand ==

== ENCOUNTER → 2025-09-10 | Outpatient (REF) | payer MEDICARE, OTHER | LOC: M SFHCPLAZ 09:31 | PROVIDERS: ATTEND Family Medicine | DX: I10 Essential (primary) hypertension (principal); E11.3553 Type 2 diabetes mellitus with stable proliferative diabetic retinopathy, bilateral; E78.00 Pure hypercholesterolemia, unspecified ==

== ENCOUNTER → 2025-09-14 | Outpatient (REF) | payer MEDICARE, OTHER ==
[2025-09-14 13:51] LABS: PLATELET COUNT, AUTOMATED 191 10^3/uL (150-450)
[2025-09-14 13:56] LABS: ALT/SGPT 47 U/L (7.0-40); AST/SGOT 37 U/L (<34); CALCIUM LEVEL 8.7 MG/DL (8.3-10.6); CARBON DIOXIDE LEVEL 26 MMOL/L (20-31); CHLORIDE LEVEL 108 MMOL/L (98-107); CHOLESTEROL LEVEL 103 MG/DL (<200); CHOLESTEROL RISK RATIO 2.93 (<5); CREATININE FOR GFR 0.82 MG/DL (0.70-1.30); GLOMERULAR FILTRATION RATE > 90.0 (>42); LDL CHOLESTEROL 45.7 MG/DL (<100); NON-HDL-C 67.9 MG/DL; POTASSIUM SERUM 4.3 MMOL/L (3.5-5.1); SODIUM LEVEL 143 MMOL/L (136-145); TRIGLYCERIDES LEVEL 111 MG/DL (<150)
[2025-09-14 14:10] LABS: ESTIMATED AVERAGE GLUCOSE 180.0 MG/DL (60-110)
== END ==
LOC: M SFHCPLAZ 12:46
PROVIDERS: ATTEND Family Medicine
DX: I10 Essential (primary) hypertension (principal); E11.3553 Type 2 diabetes mellitus with stable proliferative diabetic retinopathy, bilateral; E78.00 Pure hypercholesterolemia, unspecified